=== PATIENT | male | born 1980 | race Caucasian/White ===

== ENCOUNTER 2022-05-03 10:32 | Outpatient (REF) | payer OTHER, SELFPAY ==
[2022-05-03 10:56] LABS: Baso%MD 0.5 %; Eos%MD 2.8 %; Hematocrit 41.2 % (42.0-52.0); Hemoglobin 14.1 g/dl (14.0-18.0); IG%MD 0.5 %; Lymph%MD 25.5 %; Mean Corpuscular HGB Conc 34.2 g/dl (31.0-36.0); Mean Corpuscular Volume 87.7 fL (80.0-98.0); Mean Platelet Volume 9.2 fL (9.4-12.4); Mono%MD 6.1 %; Neut%MD 64.6 %; Platelet Count 242 X10*3/uL (160-400); Red Cell Distribution Width 12.1 % (11.0-16.0); White Blood Count 7.8 X10*3/uL (4.8-10.8)
[2022-05-03 11:57] LABS: Anion Gap 14 (12-20); Blood Urea Nitrogen 16 mg/dL (9-16); Calcium 9.4 mg/dL (8.4-10.2); Carbon Dioxide 21 mmol/L (22-29); Chloride 106 mmol/L (96-108); Cholesterol 159 mg/dL; Estimated Glomerular Filt Rate > 60; Glucose Random 298 mg/dL (60-115); HDL Cholesterol 35 mg/dL; LDL Cholesterol Calculated 63 mg/dl; Potassium 4.4 mmol/L (3.3-5.1); Sodium 137 mmol/L (135-145); Triglycerides 309 mg/dL
[2022-05-03 12:02] LABS: Atypical Lymph Absolute Manual 0.1 x10*3/uL; Atypical Lymphs Percent Manual 1 % (0-6); Band Neutrophils Percent 0 % (3-5); Eosinophils Absolute Manual 0.2 X10*3/uL (0.0-0.4); Eosinophils Percent Manual 3 % (0-4); Lymphocytes Absolute Manual 2.3 X10*3/uL (1.2-4.9); Lymphocytes Percent Manual 29 % (20-40); Monocytes Absolute Manual 0.8 X10*3/uL (0.1-1.2); Monocytes Percent Manual 10 % (2-11); Neutrophils Absolute Manual 4.4 X10*3/uL (2.0-8.3); Neutrophils Percent Manual 57 % (45-73)
[2022-05-03 12:03] LABS: Platelet Estimate NORMAL (NORMAL); Platelet Morphology Comment NORMAL; RBC Morphology NORMAL
[2022-05-03 12:11] LABS: Free T4 (Free Thyroxine) 0.83 ng/dL (0.71-1.85); Thyroid Stimulating Hormone 0.24 uIU/mL (0.32-4.0)
[2022-05-04 18:51] LABS: Prolactin 2.3 ng/mL (2.0-18.0)
== END 2022-05-03 10:33 | disposition home or self-care (01) ==
LOC: HO.LAB 10:32
PROVIDERS: PCP Internal Medicine; Visit Provider Clinical Nurse Specialist Psychiatric/Mental Health, Child & Adolescent
DX: F31.9 Bipolar disorder, unspecified (principal); Z79.899 Other long term (current) drug therapy
CPT/HCPCS: 36415; 80048; 80061; 84146; 84439; 84443; 85007; 85027

== ENCOUNTER 2022-11-21 10:21 | Inpatient (IN) | payer OTHER, SELFPAY ==
[2022-11-21] VITALS (13 sets, daily range): BP systolic 98–188; BP diastolic 54–94; PULSE 70–109; RESP 12–22; TEMP 36.7–36.8; O2SAT 97–100; BMI 31.3
--- NOTE | ~2022-11-21 | XR_ITS ---
EXAMINATION: XR CHEST CLINICAL INFORMATION: SOB. COMPARISON: None available. TECHNIQUE: 2 views of the chest were obtained. FINDINGS: No significant abnormality is noted involving the heart, lungs, mediastinum, bony thorax or soft tissues. XR/XR chest 1V IMPRESSION: Unremarkable chest examination.
--- NOTE | 2022-11-21 10:45 | ECG_ITS ---
Test Reason : DIZZY Blood Pressure : / mmHG Vent. Rate : 093 BPM Atrial Rate : 093 BPM P-R Int : 152 ms QRS Dur : 098 ms QT Int : 386 ms P-R-T Axes : 069 076 056 degrees QTc Int : 479 ms Normal sinus rhythm Normal ECG When compared with ECG of 11-MAR-2014 11:01, No significant change was found Referred By: Cristiana Amin Electronically Signed By:PITER SAVAGE
--- NOTE | 2022-11-21 10:47 | ED.GENADULT ---
HPI - General Adult General Chief complaint: Weakness Stated complaint: lethargic and dizzy per ems Time Seen by Provider: 11/21/22 10:40 Source: patient, EMS and old records reviewed Mode of arrival: EMS Limitations: no limitations History of Present Illness HPI narrative: 42-year-old male with history of obesity, depression, hyperlipidemia, anxiety who is presenting to the ER for evaluation of lethargy, generalized malaise, polyuria and polydipsia for the last couple of months. He states he saw his PCP for a physical about a month ago, who briefly touched upon his symptoms and is also get blood work done but has not had the time yet. He states he has had no medication changes recently. He has had intermittent dizziness and generalized weakness. He states his breathing has been ?heavy. ? he denies any chest pain. No fever or chills. He does endorse epigastric abdominal pain he associates with increased acid reflux. No nausea, vomiting, diarrhea. He has been suffering from constipation and having to use enemas at home, last BM was yesterday after enema use. POC 369 for EMS. MD complaint: Malaise, polyuria, polydipsia Onset (ago): month(s) Location: head and mouth Severity: moderate Relieving factors: none Exacerbating factors: none Associated symptoms: loss of appetite, malaise, shortness of breath and weakness Treatments prior to arrival: none Related Data Home Medications Medication Instructions Recorded Confirmed albuterol sulfate 90 mcg/actuation 2 puff inhalation Q4H PRN 11/21/22 11/21/22 aerosol inhaler Shortness Of Breath quetiapine 300 mg tablet 600 mg PO BEDTIME 11/21/22 11/21/22 Previous Rx's Medication Instructions Recorded clonazepam 1 mg tablet 1 mg PO BID PRN depression #90 tabs 10/02/22 sertraline 100 mg tablet 150 mg PO DAILY #90 tabs 10/02/22 atorvastatin 40 mg tablet 40 mg PO BEDTIME #90 tabs 10/23/22 nicotine 14 mg/24 hr daily 1 patch transdermal Q24H #28 ea 10/23/22 transdermal patch Allergies Allergy/AdvReac Type Severity Reaction Status Date / Time No Known Allergies Allergy Verified 10/23/22 11:14 REPLACED BY [facility] Past Medical History Medical History Hyperlipidemia Surgical History History of tonsillectomy Family History Family History Father No problems noted. Mother No problems noted. Social History Social History (Updated 10/23/22 @ 11:22 by CALOS Crowder) Housing: Condominium Alcohol intake: current Alcohol intake frequency: holidays/special occasions only Patient Tobacco Use Status: Current everyday Tobacco user Tobacco use type: Cigarette Cigarettes Per Day: 10 e-Cigarette/Vaping Use: Never Used Second Hand Smoke Exposure: No Advance Directives: No service: No Current occupational status: disabled Current occupational exposures/hazards: No Cognitive needs: No Hearing needs: No Vision needs: No Physical Exam ED Vital Signs: Vital Signs - 24 hr 11/21/22 10:51 11/21/22 11:40 11/21/22 11:40 Temperature 98.1 F Pulse Rate 103 H 95 107 H Respiratory Rate 16 Blood Pressure 164/92 H 147/82 H 167/82 H Pulse Oximetry 100 Oxygen Delivery Method Room Air 11/21/22 11:41 11/21/22 12:09 Temperature Pulse Rate 109 H 97 Respiratory Rate 20 Blood Pressure 137/80 135/86 Pulse Oximetry 100 Oxygen Delivery Method Room Air BMI result Body Mass Index 31.3 Course Reevaluation(s) Reevaluation #1: Patient found to have metabolic acidosis with hemoglobin A1c greater than 14%. He is in DKA with new onset of diabetes. Insulin IV push as well as IV infusion have been ordered. He will acquire ICU level of care. Patient updated on diagnosis and management. Time: 12:11 Reevaluation #2: Anion gap 29 with a bicarb of 8. Glucose in the 500s. Patient started on insulin infusion. Second IV cannot be established due to dehydration, 2 L of normal saline has been ordered as LR and insulin cannot infused together. There is ICU bed available, bed request put in, Dr. Madrigal Time: 12:42 Medications Administered Generic Name Dose Route Start Last Admin Trade Name Freq PRN Reason Stop Dose Admin Insulin Human Regular 100 unit in 100 mls @ 9 mls/hr 11/21/22 12:00 11/21/22 12:19 Myxredlin IVCONT 9 unit/hr .Q11H7M HOMAR 9 mls/hr Administration Protocol 9 UNIT/HR Discontinued Medications Generic Name Dose Route Start Last Admin Trade Name Kartik PRN Reason Stop Dose Admin Al Hydroxide/Mg Hydroxide 30 ml 11/21/22 10:46 11/21/22 11:32 Magnesium Hydrox/Alum Hydrox 30 Ml Oral.Susp PO 11/21/22 10:47 30 ml ONCE ONE Administration Belladonna Alkaloids/Phenobarbital 10 ml 11/21/22 10:46 11/21/22 11:31 Phenobarb/Hyoscy/Atropine/Scop 10 Ml Elixir PO 11/21/22 10:47 10 ml ONCE ONE Administration Sodium Chloride 1,000 mls @ 999 mls/hr 11/21/22 11:00 11/21/22 12:37 Ns IVCONT 11/21/22 12:00 Infused .Q1H1M HOMAR Infusion Sodium Chloride 1,000 mls @ 999 mls/hr 11/21/22 12:30 11/21/22 12:30 Ns IVCONT 11/21/22 13:30 999 mls/hr .Q1H1M HOMAR Administration Insulin Human Regular 5 unit 11/21/22 11:46 11/21/22 12:12 Insulin Regular, Human 100 Unit/Ml 3 Ml Vial IVPUSH 11/21/22 11:47 5 unit ONCE ONE Administration Lidocaine HCl 15 ml 11/21/22 10:46 11/21/22 11:32 Lidocaine Hcl Viscous 2 % 15 Ml Solution MUCOUS MEM 11/21/22 10:47 15 ml ONCE ONE Administration Ondansetron HCl 4 mg 11/21/22 11:04 11/21/22 11:08 Ondansetron Hcl 4 Mg/2 Ml Vial IVPUSH 11/21/22 11:05 4 mg ONCE ONE Administration Medical Decision Making Medical Decision Making MDM Narrative: 42-year-old male with history of depression, anxiety, hyperlipidemia, obesity who presents to the ER today for evaluation of polydipsia, polyuria, weakness, lethargy, dry mouth for the last couple of months. He is tachypneic on arrival, concern for DKA. EMS POC 369. Lab work showing acute metabolic acidosis with pH 7.14. His anion gap of 29 with bicarb of 8. His glucose is the 500s with moderate acetone. Labs consistent with DKA and new onset diabetes. His A1c is greater than 14%. He was given 2 L of normal saline, 5 units of IV insulin and insulin infusion was started and 9 units an hour, DKA protocol ordered. Patient to be admitted to the ICU for further management. He was counseled on his new diagnosis, management and need for intensive care unit. All questions were answered. Differential Diagnosis Differential Diagnoses: The differential diagnosis associated with the presentation includes DKA, HHS, newly diagnosed diabetes, dehydration, metabolic derangement, acute infection, ACS Admission/Observation Consideration of admission/observation: Escalation of care including admission/observation considered Consult Healthcare Provider Management of the patient was discussed with: [facility] Consultant Dr. Madrigal Lab Data MDM Lab Attestation statement: I reviewed the patient's lab results. 11/21/22 11:22 11/21/22 11:22 Labs: Lab Results 11/21/22 11/21/22 11/21/22 Range/Units 11:22 11:22 11:22 WBC 8.9 (4.8-10.8) X10*3/uL RBC 5.36 (4.60-5.80) X10*6/uL Hgb 16.1 (14.0-18.0) g/dl Hct 46.1 (42.0-52.0) % MCV 86.0 (80.0-98.0) fL MCH 30.0 (27.0-33.0) pg MCHC 34.9 (31.0-36.0) g/dl RDW 12.7 (11.0-16.0) % Plt Count 253 (160-400) X10*3/uL MPV 10.3 (9.4-12.4) fL Immature Gran % (Auto) 0.5 H (0.0-0.4) % Neut % (Auto) 80.1 H (45-73) % Lymph % (Auto) 13.9 L (20-40) % Piatt % (Auto) 4.9 (2-11) % Eos % (Auto) 0.1 (0-4) % Baso % (Auto) 0.5 (0-2) % Lymph # (Auto) 1.2 (1.2-4.9) X10*3/uL Piatt # (Auto) 0.4 (0.1-1.2) X10*3/uL Eos # (Auto) 0.0 (0.0-0.4) X10*3/uL Baso # (Auto) 0.0 (0.0-0.2) X10*3/uL Abs Immat Gran (auto) 0.04 H (0.00-0.03) X10*3/uL Absolute Neuts (auto) 7.1 (2.0-8.3) x10*3/uL Absolute Nucleated RBC 0.000 (0.0-0.012) X10*3/uL Nucleated RBC % (auto) 0.0 (0.0-0.2) /100WBC VBG pH (7.32-7.43) VBG pCO2 mmHg VBG pO2 mmHg VBG HCO3 (22-26) mmol/L VBG O2 Saturation % VBG Base Excess mmol/L Sodium 135 (135-145) mmol/L Potassium 4.0 (3.3-5.1) mmol/L Chloride 102 (96-108) mmol/L Carbon Dioxide 8 L* D (22-29) mmol/L Anion Gap 29 H (12-20) BUN 11 (9-16) mg/dL Creatinine 1.83 H (0.5-1.4) mg/dL Estim Creat Clear Calc 60.7 Estimated GFR 40 POC Glucose (60-115) mg/dL Random Glucose 522 H* (60-115) mg/dL Estimat Average Glucose TNP Hemoglobin A1c % > 14.0 % Calcium 9.0 (8.4-10.2) mg/dL Magnesium 2.4 (1.6-2.6) mg/dL Total Bilirubin 0.7 (0.0-1.0) mg/dL Direct Bilirubin 0.2 (0.0-0.5) mg/dL AST 33 (5-37) U/L ALT 79 H (0-40) U/L Alkaline Phosphatase 109 (39-117) U/L Troponin I High Sens (<3.5-35.0) ng/L B-Natriuretic Peptide (<100) pg/mL Total Protein 7.8 (6.5-8.0) g/dL Albumin 4.8 (3.5-5.0) g/dL TSH 0.71 (0.32-4.0) uIU/mL Urine Color Urine Appearance Urine pH (5.0-9.0) Ur Specific Nucla (1.005-1.025) Urine Protein (Neg-Trace) mg/dL Urine Glucose (UA) (Negative) mg/dL Urine Ketones (Negative) mg/dL Urine Blood (Negative) Urine Nitrite (Negative) Ur Leukocyte Esterase (Negative) Urine RBC (0-2) /HPF Urine WBC (0-5) /HPF Ur Squamous Epith Cells (0-2) /HPF Urine Bacteria (None Seen) Hyaline Casts (0-2) /LPF Urine Opiates Screen (Not Detect) Urine Fentanyl Screen (Not Detect) Ur Barbiturates Screen (Not Detect) Ur Phencyclidine Scrn (Not Detect) Ur Amphetamines Screen (Not Detect) U Benzodiazepines Scrn (Not Detect) Urine Cocaine Screen (Not Detect) U Marijuana (THC) Screen (Not Detect) Ethyl Alcohol < 10 mg/dL Acetone, Qual (Negative) 11/21/22 11/21/22 11/21/22 Range/Units 11:22 11:22 11:22 WBC (4.8-10.8) X10*3/uL RBC (4.60-5.80) X10*6/uL Hgb (14.0-18.0) g/dl Hct (42.0-52.0) % MCV (80.0-98.0) fL MCH (27.0-33.0) pg MCHC (31.0-36.0) g/dl RDW (11.0-16.0) % Plt Count (160-400) X10*3/uL MPV (9.4-12.4) fL Immature Gran % (Auto) (0.0-0.4) % Neut % (Auto) (45-73) % Lymph % (Auto) (20-40) % Piatt % (Auto) (2-11) % Eos % (Auto) (0-4) % Baso % (Auto) (0-2) % Lymph # (Auto) (1.2-4.9) X10*3/uL Piatt # (Auto) (0.1-1.2) X10*3/uL Eos # (Auto) (0.0-0.4) X10*3/uL Baso # (Auto) (0.0-0.2) X10*3/uL Abs Immat Gran (auto) (0.00-0.03) X10*3/uL Absolute Neuts (auto) (2.0-8.3) x10*3/uL Absolute Nucleated RBC (0.0-0.012) X10*3/uL Nucleated RBC % (auto) (0.0-0.2) /100WBC VBG pH (7.32-7.43) VBG pCO2 mmHg VBG pO2 mmHg VBG HCO3 (22-26) mmol/L VBG O2 Saturation % VBG Base Excess mmol/L Sodium (135-145) mmol/L Potassium (3.3-5.1) mmol/L Chloride (96-108) mmol/L Carbon Dioxide (22-29) mmol/L Anion Gap (12-20) BUN (9-16) mg/dL Creatinine (0.5-1.4) mg/dL Estim Creat Clear Calc Estimated GFR POC Glucose (60-115) mg/dL Random Glucose (60-115) mg/dL Estimat Average Glucose Hemoglobin A1c % % Calcium (8.4-10.2) mg/dL Magnesium (1.6-2.6) mg/dL Total Bilirubin (0.0-1.0) mg/dL Direct Bilirubin (0.0-0.5) mg/dL AST (5-37) U/L ALT (0-40) U/L Alkaline Phosphatase (39-117) U/L Troponin I High Sens 3.8 (<3.5-35.0) ng/L B-Natriuretic Peptide < 10 (<100) pg/mL Total Protein (6.5-8.0) g/dL Albumin (3.5-5.0) g/dL TSH (0.32-4.0) uIU/mL Urine Color Urine Appearance Urine pH (5.0-9.0) Ur Specific Nucla (1.005-1.025) Urine Protein (Neg-Trace) mg/dL Urine Glucose (UA) (Negative) mg/dL Urine Ketones (Negative) mg/dL Urine Blood (Negative) Urine Nitrite (Negative) Ur Leukocyte Esterase (Negative) Urine RBC (0-2) /HPF Urine WBC (0-5) /HPF Ur Squamous Epith Cells (0-2) /HPF Urine Bacteria (None Seen) Hyaline Casts (0-2) /LPF Urine Opiates Screen (Not Detect) Urine Fentanyl Screen (Not Detect) Ur Barbiturates Screen (Not Detect) Ur Phencyclidine Scrn (Not Detect) Ur Amphetamines Screen (Not Detect) U Benzodiazepines Scrn (Not Detect) Urine Cocaine Screen (Not Detect) U Marijuana (THC) Screen (Not Detect) Ethyl Alcohol mg/dL Acetone, Qual Moderate H (Negative) 11/21/22 11/21/22 11/21/22 Range/Units 11:22 11:22 11:30 WBC (4.8-10.8) X10*3/uL RBC (4.60-5.80) X10*6/uL Hgb (14.0-18.0) g/dl Hct (42.0-52.0) % MCV (80.0-98.0) fL MCH (27.0-33.0) pg MCHC (31.0-36.0) g/dl RDW (11.0-16.0) % Plt Count (160-400) X10*3/uL MPV (9.4-12.4) fL Immature Gran % (Auto) (0.0-0.4) % Neut % (Auto) (45-73) % Lymph % (Auto) (20-40) % Piatt % (Auto) (2-11) % Eos % (Auto) (0-4) % Baso % (Auto) (0-2) % Lymph # (Auto) (1.2-4.9) X10*3/uL Piatt # (Auto) (0.1-1.2) X10*3/uL Eos # (Auto) (0.0-0.4) X10*3/uL Baso # (Auto) (0.0-0.2) X10*3/uL Abs Immat Gran (auto) (0.00-0.03) X10*3/uL Absolute Neuts (auto) (2.0-8.3) x10*3/uL Absolute Nucleated RBC (0.0-0.012) X10*3/uL Nucleated RBC % (auto) (0.0-0.2) /100WBC VBG pH 7.14 L* (7.32-7.43) VBG pCO2 28 mmHg VBG pO2 28 mmHg VBG HCO3 10 L (22-26) mmol/L VBG O2 Saturation 48.0 % VBG Base Excess -17.3 mmol/L Sodium (135-145) mmol/L Potassium (3.3-5.1) mmol/L Chloride (96-108) mmol/L Carbon Dioxide (22-29) mmol/L Anion Gap (12-20) BUN (9-16) mg/dL Creatinine (0.5-1.4) mg/dL Estim Creat Clear Calc Estimated GFR POC Glucose (60-115) mg/dL Random Glucose (60-115) mg/dL Estimat Average Glucose Hemoglobin A1c % % Calcium (8.4-10.2) mg/dL Magnesium (1.6-2.6) mg/dL Total Bilirubin (0.0-1.0) mg/dL Direct Bilirubin (0.0-0.5) mg/dL AST (5-37) U/L ALT (0-40) U/L Alkaline Phosphatase (39-117) U/L Troponin I High Sens (<3.5-35.0) ng/L B-Natriuretic Peptide (<100) pg/mL Total Protein (6.5-8.0) g/dL Albumin (3.5-5.0) g/dL TSH (0.32-4.0) uIU/mL Urine Color Yellow Urine Appearance Clear Urine pH 5.0 (5.0-9.0) Ur Specific Nucla >= 1.030 H (1.005-1.025) Urine Protein 30 (1+) H (Neg-Trace) mg/dL Urine Glucose (UA) >=1000 H (Negative) mg/dL Urine Ketones >=160 (Negative) mg/dL Urine Blood Trace H (Negative) Urine Nitrite Negative (Negative) Ur Leukocyte Esterase Negative (Negative) Urine RBC 0-2 (0-2) /HPF Urine WBC 0-5 (0-5) /HPF Ur Squamous Epith Cells 0-2 (0-2) /HPF Urine Bacteria None Seen (None Seen) Hyaline Casts 6-10 (0-2) /LPF Urine Opiates Screen Not Detected (Not Detect) Urine Fentanyl Screen Not Detected (Not Detect) Ur Barbiturates Screen Not Detected (Not Detect) Ur Phencyclidine Scrn Not Detected (Not Detect) Ur Amphetamines Screen Not Detected (Not Detect) U Benzodiazepines Scrn Not Detected (Not Detect) Urine Cocaine Screen Not Detected (Not Detect) U Marijuana (THC) Screen POSITIVE H (Not Detect) Ethyl Alcohol mg/dL Acetone, Qual (Negative) 11/21/22 Range/Units 12:05 WBC (4.8-10.8) X10*3/uL RBC (4.60-5.80) X10*6/uL Hgb (14.0-18.0) g/dl Hct (42.0-52.0) % MCV (80.0-98.0) fL MCH (27.0-33.0) pg MCHC (31.0-36.0) g/dl RDW (11.0-16.0) % Plt Count (160-400) X10*3/uL MPV (9.4-12.4) fL Immature Gran % (Auto) (0.0-0.4) % Neut % (Auto) (45-73) % Lymph % (Auto) (20-40) % Piatt % (Auto) (2-11) % Eos % (Auto) (0-4) % Baso % (Auto) (0-2) % Lymph # (Auto) (1.2-4.9) X10*3/uL Piatt # (Auto) (0.1-1.2) X10*3/uL Eos # (Auto) (0.0-0.4) X10*3/uL Baso # (Auto) (0.0-0.2) X10*3/uL Abs Immat Gran (auto) (0.00-0.03) X10*3/uL Absolute Neuts (auto) (2.0-8.3) x10*3/uL Absolute Nucleated RBC (0.0-0.012) X10*3/uL Nucleated RBC % (auto) (0.0-0.2) /100WBC VBG pH (7.32-7.43) VBG pCO2 mmHg VBG pO2 mmHg VBG HCO3 (22-26) mmol/L VBG O2 Saturation % VBG Base Excess mmol/L Sodium (135-145) mmol/L Potassium (3.3-5.1) mmol/L Chloride (96-108) mmol/L Carbon Dioxide (22-29) mmol/L Anion Gap (12-20) BUN (9-16) mg/dL Creatinine (0.5-1.4) mg/dL Estim Creat Clear Calc Estimated GFR POC Glucose 432 H* (60-115) mg/dL Random Glucose (60-115) mg/dL Estimat Average Glucose Hemoglobin A1c % % Calcium (8.4-10.2) mg/dL Magnesium (1.6-2.6) mg/dL Total Bilirubin (0.0-1.0) mg/dL Direct Bilirubin (0.0-0.5) mg/dL AST (5-37) U/L ALT (0-40) U/L Alkaline Phosphatase (39-117) U/L Troponin I High Sens (<3.5-35.0) ng/L B-Natriuretic Peptide (<100) pg/mL Total Protein (6.5-8.0) g/dL Albumin (3.5-5.0) g/dL TSH (0.32-4.0) uIU/mL Urine Color Urine Appearance Urine pH (5.0-9.0) Ur Specific Nucla (1.005-1.025) Urine Protein (Neg-Trace) mg/dL Urine Glucose (UA) (Negative) mg/dL Urine Ketones (Negative) mg/dL Urine Blood (Negative) Urine Nitrite (Negative) Ur Leukocyte Esterase (Negative) Urine RBC (0-2) /HPF Urine WBC (0-5) /HPF Ur Squamous Epith Cells (0-2) /HPF Urine Bacteria (None Seen) Hyaline Casts (0-2) /LPF Urine Opiates Screen (Not Detect) Urine Fentanyl Screen (Not Detect) Ur Barbiturates Screen (Not Detect) Ur Phencyclidine Scrn (Not Detect) Ur Amphetamines Screen (Not Detect) U Benzodiazepines Scrn (Not Detect) Urine Cocaine Screen (Not Detect) U Marijuana (THC) Screen (Not Detect) Ethyl Alcohol mg/dL Acetone, Qual (Negative) ABG Data ABG Results: (venous) Attestation ABG: I personally reviewed and interpreted this ABG as follows: Interpretation: Acute metabolic acidosis Independent Interpretation I performed an independent interpretation of an: EKG and Plain X-Ray Interpretation: EKG with normal sinus rhythm, ventricular rate 93 beats per minute, normal HI interval, normal QTC, no significant change from 2014. Chest x-ray clear Radiology Impression Discussion of test interpretation with radiology: I have reviewed the radiologist's reading. Radiologist Impression: EXAMINATION: XR CHEST CLINICAL INFORMATION: SOB. COMPARISON: None available. TECHNIQUE: 2 views of the chest were obtained. FINDINGS: No significant abnormality is noted involving the heart, lungs, mediastinum, bony thorax or soft tissues. XR/XR chest 2V IMPRESSION: Unremarkable chest examination. Independent Historian Clinical information obtained from an independent historian. History obtained from or confirmed by: EMS External Record Review External record reviewed: Office record, Outpatient record, Prior outpatient labs and Prior outpatient radiology Prescription Management I considered prescription management with: Other (insulin) Chronic Conditions Patient?s care impacted by: Hypertension and Other (depression, anxiety) Critical Care Time Critical Care Time Critical Care Time: Yes Total Critical Care Time: 44 Attestation: I have personally provided critical care time exclusive of time spent on separately billable procedures. Time includes review of lab data, radiology results, discussion with consultants, and monitoring for potential decompensation. Intervention performed as documented. Discharge Plan Discharge Clinical Impression: DKA (diabetic ketoacidosis), Newly diagnosed diabetes, TYESHA (acute kidney injury) Patient Disposition: Admitted As Inpatient
[2022-11-21] MEDS: 0.9 % Sodium Chloride 1,000 ML 999 ML IVCONT ×2 (11:02→12:30)
[2022-11-21] MEDS: ondansetron HCL 4 MG/2 ML VIAL IVPUSH (11:08)
[2022-11-21] MEDS: PHENobarb/Hyoscy/Atropine/Scop 10 ML ELIXIR PO (11:31)
[2022-11-21] MEDS: Magnesium Hydrox/Alum Hydrox 30 ML ORAL.SUSP PO (11:32)
[2022-11-21] MEDS: Lidocaine HCl Viscous 2 % 15 ML SOLUTION MUCOUS MEM (11:32)
[2022-11-21 11:34] LABS: MANUAL DIFF FLAG NO
[2022-11-21 11:38] LABS: Basophils Percent Auto 0.5 % (0-2); Eosinophils Percent Auto 0.1 % (0-4); Hematocrit 46.1 % (42.0-52.0); Hemoglobin 16.1 g/dl (14.0-18.0); Imm Gran Abs Auto 0.04 X10*3/uL (0.00-0.03); Imm Gran Pct Auto 0.5 % (0.0-0.4); Lymphocytes Absolute Auto 1.2 X10*3/uL (1.2-4.9); Lymphocytes Percent Auto 13.9 % (20-40); Mean Corpuscular HGB Conc 34.9 g/dl (31.0-36.0); Mean Platelet Volume 10.3 fL (9.4-12.4); Monocytes Absolute Auto 0.4 X10*3/uL (0.1-1.2); Monocytes Percent Auto 4.9 % (2-11); Neutrophils Absolute Auto 7.1 x10*3/uL (2.0-8.3); Neutrophils Percent Auto 80.1 % (45-73); Platelet Count 253 X10*3/uL (160-400); Red Blood Count 5.36 X10*6/uL (4.60-5.80); Red Cell Distribution Width 12.7 % (11.0-16.0); White Blood Count 8.9 X10*3/uL (4.8-10.8)
[2022-11-21 11:41] LABS: VBG Base Excess -17.3 mmol/L; VBG HCO3 10 mmol/L (22-26); VBG pCO2 28 mmHg; VBG pH 7.14 (7.32-7.43); VBG pO2 28 mmHg
[2022-11-21 11:43] LABS: Appearance Urine Clear; Color Urine Yellow; Glucose Urine UA >=1000 mg/dL (Negative); Leukocyte Esterase Urine Negative (Negative); Nitrite Urine Negative (Negative); Specific Gravity - Urine >= 1.030 (1.005-1.025); UMIC TRIGGER UACC YES; Urine Blood Trace (Negative); Urine Ketones >=160 mg/dL (Negative); Urine Protein 30 (1+) mg/dL (Neg-Trace)
[2022-11-21 11:49] LABS: Acetone, serum QL Moderate (Negative)
[2022-11-21 11:51] LABS: Bacteria Urine None Seen (None Seen); RBC Urine 0-2 /HPF (0-2); Squamous Epithelial Cell Urine 0-2 /HPF (0-2); WBC Urine 0-5 /HPF (0-5)
[2022-11-21 11:53] LABS: Amphetamine Screen Urine Not Detected (Not Detect); Barbiturates, Urine Not Detected (Not Detect); Benzodiazepines Screen Urine Not Detected (Not Detect); Cannabinoid Screen Urine POSITIVE (Not Detect); Cocaine Screen Urine Not Detected (Not Detect); Fentanyl, urine Not Detected (Not Detect); Opiate Screen Urine Not Detected (Not Detect); Phencyclidine Screen Urine Not Detected (Not Detect)
[2022-11-21 11:55] LABS: Hemoglobin A1c % > 14.0 %
[2022-11-21 11:56] LABS: B Type Natriuretic Peptide < 10 pg/mL (<100)
[2022-11-21 11:57] LABS: Venous Blood Gas Refer to POC result
[2022-11-21 11:59] LABS: Troponin-I High Sensitivity 3.8 ng/L (<3.5-35.0)
[2022-11-21 12:10] LABS: Glucose, Whole Blood 432 mg/dL (60-115)
[2022-11-21 12:12] LABS: Alanine Aminotransferase 79 U/L (0-40); Albumin Level 4.8 g/dL (3.5-5.0); Alkaline Phosphatase 109 U/L (39-117); Aspartate Amino Transferase 33 U/L (5-37); Bilirubin Direct 0.2 mg/dL (0.0-0.5); Bilirubin Total 0.7 mg/dL (0.0-1.0); Blood Urea Nitrogen 11 mg/dL (9-16); Creatinine Clr Calc Pharmacy 60.7; Estimated Glomerular Filt Rate 40; Ethanol < 10 mg/dL; Magnesium 2.4 mg/dL (1.6-2.6); Total Protein 7.8 g/dL (6.5-8.0)
[2022-11-21] MEDS: Insulin Regular, Human 100 UNIT/ML 3 ML VIAL IVPUSH (12:12)
[2022-11-21 12:13] LABS: TSH reflex Free T4 0.71 uIU/mL (0.32-4.0)
[2022-11-21] MEDS: Insulin Regular/NS 100 UNIT/100 ML PLAST..BAG 9 UNIT IVCONT (12:19)
--- NOTE | 2022-11-21 12:20 | PHA.MEDREC ---
Pharmacy Consult ? Medication Reconciliation Pharmacy has completed the medication reconciliation. Pt able to name medications
[2022-11-21 12:22] LABS: Glucose Random 522 mg/dL (60-115)
[2022-11-21 12:30] LABS: Sodium 135 mmol/L (135-145)
[2022-11-21 12:31] LABS: Chloride 102 mmol/L (96-108)
[2022-11-21 12:32] LABS: Anion Gap 29 (12-20); Carbon Dioxide 8 mmol/L (22-29)
[2022-11-21 13:35] LABS: Glucose, Whole Blood 311 mg/dL (60-115)
[2022-11-21] MEDS: Lactated Ringers 1,000 ML 999 ML IV (14:07)
[2022-11-21] MEDS: Heparin Sodium,Porcine 5,000 UNIT/ML VIAL 5000 UNIT SUBCUT ×2 (14:09→21:38)
[2022-11-21 14:10] LABS: Anion Gap 21 (12-20); Blood Urea Nitrogen 11 mg/dL (9-16); Calcium 7.9 mg/dL (8.4-10.2); Carbon Dioxide 11 mmol/L (22-29); Chloride 110 mmol/L (96-108); Creatinine Clr Calc Pharmacy 72.1; Estimated Glomerular Filt Rate 49; Glucose Random 329 mg/dL (60-115); Potassium 3.9 mmol/L (3.3-5.1); Sodium 138 mmol/L (135-145)
[2022-11-21 14:28] LABS: Glucose, Whole Blood 302 mg/dL (60-115)
[2022-11-21] MEDS: Lactated Ringers 1,000 ML 200 ML IVCONT (14:49)
--- NOTE | 2022-11-21 15:27 | P.HPCC_ITS ---
History of Present Illness Date of Service: 11/21/22 Chief Complaint: Diabetic ketoacidosis 42-year-old gentleman with underlying history of obesity, hyperlipidemia, and anxiety admitted on 11/21/2022 with slowly worsening lethargy, malaise, polyuria/polydipsia. On ER evaluation patient with laboratory findings of diabetic ketoacidosis started on insulin drip and IV fluids and admitted to intensive care unit. Review of Systems Constitutional: Constitutional: Denies daytime sleepiness, Denies excessive s weating, Reports fatigue, Denies fever(s), Denies lethargy, Reports malaise, Denies night sweats, Denies snoring and Denies weight loss Eyes: Eyes: Denies blurry vision and Denies itchy eyes ENT: Denies nasal congestion, Denies post nasal drip, Denies sinus pain, Denies sinus pressure and Denies other ( Thrush) Cardiovascular: Cardiovascular: Denies chest pain, Denies pedal edema, Denies dyspnea, Denies orthopnea and Denies paroxysmal nocturnal dyspnea Respiratory: Respiratory: Denies cough, Denies hemoptysis, Denies excessive phlegm production, Denies dyspnea, Denies snoring and Denies wheezing Gastrointestinal: Gastrointestinal: Denies abdominal pain and Denies heartburn Musculoskeletal: Musculoskeletal: Denies myalgias, Denies arthralgias and Denies joint swelling Integumentary/Breasts: Skin/Breast: Denies rash Neurologic: Denies memory loss and Denies seizure-like activity Psychiatric: Psychiatric: Denies abnormal sleep pattern, Denies anxiety and Denies memory loss Endocrine: Endocrine: Denies excessive sweating, Reports fatigue, Denies heat intolerance and Reports other ( Polydipsia/polyuria) Hematologic/Lymphatic: Hematologic/Lymphatic: Denies easy bruising Allergic/Immunologic: Allergic/Immunologic: Denies itchy eyes, Denies seasonal rhinorrhea and Denies wheezing PMFSH Past Medical History Medical History Hyperlipidemia Family History Family History Father No problems noted. Mother No problems noted. Surgical History Surgical History History of tonsillectomy Social History Social History (Updated 10/23/22 @ 11:22 by CALOS Crowder) Housing: Condominium Alcohol intake: current Alcohol intake frequency: does not drink Patient Tobacco Use Status: Current everyday Tobacco user Tobacco use type: Cigarette Cigarettes Per Day: 10 Smoked in Last 30 Days: Yes e-Cigarette/Vaping Use: Never Used Second Hand Smoke Exposure: No Use of substances other than those prescribed or required for medical reasons: Yes Substance Use Type: Marijuana Substance Use Frequency: Weekly Last Used Substance: Weeks (ago) Advance Directives: No Nutrition Risks: Diabetes new onset/Uncontrolled service: No Current occupational status: disabled Current occupational exposures/hazards: No Cognitive needs: No Hearing needs: No Vision needs: No Meds Allergies Allergy/AdvReac Type Severity Reaction Status Date / Time No Known Allergies Allergy Verified 10/23/22 11:14 Active Medications: Current Medications Heparin Sodium (Porcine) (Heparin Sodium,Porcine 5,000 Unit/Ml Vial) 5,000 unit SUBCUT Q8H HOMAR Last Admin: 11/21/22 14:09 Dose: 5,000 unit Insulin Human Regular (Myxredlin) 100 unit in 100 mls @ 9 mls/hr IVCONT .Q11H7M HOMAR; Protocol Last Admin: 11/21/22 12:19 Dose: 9 unit/hr, 9 mls/hr Dextrose (D10) 250 mls @ 750 mls/hr IV Q30M PRN PRN Reason: BG < 70 Lactated Ringer's (Lr) 1,000 mls @ 200 mls/hr IVCONT .Q5H HOMAR Last Admin: 11/21/22 14:49 Dose: 200 mls/hr Pharmacy Consult (Consult Rx Perform Med Rec) 1 each MISCELLANE ONCE PRN PRN Reason: Consult order Home Medications Medication Instructions Recorded Confirmed Last Taken Type albuterol sulfate 90 mcg/actuation 2 puff inhalation Q4H PRN 11/21/22 11/21/22 Unknown History aerosol inhaler Shortness Of Breath quetiapine 300 mg tablet 600 mg PO BEDTIME 11/21/22 11/21/22 11/20/22 History Physical Exam Vital Signs: Vital Signs: Last Vital Signs Temp 98.1 F 11/21/22 10:51 Pulse 97 11/21/22 12:09 Resp 20 11/21/22 12:09 BP 135/86 11/21/22 12:09 Pulse Ox 100 11/21/22 12:09 O2 Del Method Room Air 11/21/22 12:09 BMI result Body Mass Index 31.3 Const: General: no acute distress and alert Nutritional Appearance: not obese Orientation/consciousness: Other orientation findings ( oriented) HEENT: Head: Yes atraumatic Mouth: no other ( thrush) Throat: No postnasal drainage Eyes: General: appearance normal, both eyes and all related structures Sclerae: sclerae normal EOM: EOMs intact bilaterally Neck: Neck: Yes supple Lymphatic: no lymphadenopathy noted Resp: Effort & Inspection: normal respiratory effort and no use of accessory muscles Auscultation: clear to auscultation bilaterally Cardio: Rate: regular rate Rhythm: regular rhythm Heart sounds: no gallops, no murmurs and no rubs GI: Palpation (GI): Soft to palpation and Other GI palpation findings present ( nontender) Skin: General skin exam: other ( warm) Rashes: no rashes Extrem: General: No clubbing, No cyanosis and No edema Results Labs 11/21/22 11:22 11/21/22 13:29 Labs: Laboratory Results - last 24 hr 11/21/22 11/21/22 11/21/22 11:22 11:22 11:22 MCV 86.0 MCH 30.0 MCHC 34.9 RDW 12.7 Plt Count 253 MPV 10.3 Immature Gran % (Auto) 0.5 H Neut % (Auto) 80.1 H Lymph % (Auto) 13.9 L Marion % (Auto) 4.9 Eos % (Auto) 0.1 Baso % (Auto) 0.5 Lymph # (Auto) 1.2 Marion # (Auto) 0.4 Eos # (Auto) 0.0 Baso # (Auto) 0.0 Abs Immat Gran (auto) 0.04 H Absolute Neuts (auto) 7.1 Absolute Nucleated RBC 0.000 Nucleated RBC % (auto) 0.0 VBG pH VBG pCO2 VBG pO2 VBG HCO3 VBG O2 Saturation VBG Base Excess Anion Gap 29 H Estim Creat Clear Calc 60.7 Estimated GFR 40 POC Glucose Random Glucose 522 H* Estimat Average Glucose TNP Hemoglobin A1c % > 14.0 Calcium 9.0 Magnesium 2.4 Total Bilirubin 0.7 Direct Bilirubin 0.2 AST 33 ALT 79 H Alkaline Phosphatase 109 Troponin I High Sens B-Natriuretic Peptide Total Protein 7.8 Albumin 4.8 TSH 0.71 Urine Color Urine Appearance Urine pH Ur Specific Malone Urine Protein Urine Glucose (UA) Urine Ketones Urine Blood Urine Nitrite Ur Leukocyte Esterase Urine RBC Urine WBC Ur Squamous Epith Cells Urine Bacteria Hyaline Casts Urine Opiates Screen Urine Fentanyl Screen Ur Barbiturates Screen Ur Phencyclidine Scrn Ur Amphetamines Screen U Benzodiazepines Scrn Urine Cocaine Screen U Marijuana (THC) Screen Ethyl Alcohol < 10 Acetone, Qual 11/21/22 11/21/22 11/21/22 11:22 11:22 11:22 MCV MCH MCHC RDW Plt Count MPV Immature Gran % (Auto) Neut % (Auto) Lymph % (Auto) Marion % (Auto) Eos % (Auto) Baso % (Auto) Lymph # (Auto) Marion # (Auto) Eos # (Auto) Baso # (Auto) Abs Immat Gran (auto) Absolute Neuts (auto) Absolute Nucleated RBC Nucleated RBC % (auto) VBG pH VBG pCO2 VBG pO2 VBG HCO3 VBG O2 Saturation VBG Base Excess Anion Gap Estim Creat Clear Calc Estimated GFR POC Glucose Random Glucose Estimat Average Glucose Hemoglobin A1c % Calcium Magnesium Total Bilirubin Direct Bilirubin AST ALT Alkaline Phosphatase Troponin I High Sens 3.8 B-Natriuretic Peptide < 10 Total Protein Albumin TSH Urine Color Urine Appearance Urine pH Ur Specific Malone Urine Protein Urine Glucose (UA) Urine Ketones Urine Blood Urine Nitrite Ur Leukocyte Esterase Urine RBC Urine WBC Ur Squamous Epith Cells Urine Bacteria Hyaline Casts Urine Opiates Screen Urine Fentanyl Screen Ur Barbiturates Screen Ur Phencyclidine Scrn Ur Amphetamines Screen U Benzodiazepines Scrn Urine Cocaine Screen U Marijuana (THC) Screen Ethyl Alcohol Acetone, Qual Moderate H 11/21/22 11/21/22 11/21/22 11:22 11:22 11:30 MCV MCH MCHC RDW Plt Count MPV Immature Gran % (Auto) Neut % (Auto) Lymph % (Auto) Marion % (Auto) Eos % (Auto) Baso % (Auto) Lymph # (Auto) Marion # (Auto) Eos # (Auto) Baso # (Auto) Abs Immat Gran (auto) Absolute Neuts (auto) Absolute Nucleated RBC Nucleated RBC % (auto) VBG pH 7.14 L* VBG pCO2 28 VBG pO2 28 VBG HCO3 10 L VBG O2 Saturation 48.0 VBG Base Excess -17.3 Anion Gap Estim Creat Clear Calc Estimated GFR POC Glucose Random Glucose Estimat Average Glucose Hemoglobin A1c % Calcium Magnesium Total Bilirubin Direct Bilirubin AST ALT Alkaline Phosphatase Troponin I High Sens B-Natriuretic Peptide Total Protein Albumin TSH Urine Color Yellow Urine Appearance Clear Urine pH 5.0 Ur Specific Malone >= 1.030 H Urine Protein 30 (1+) H Urine Glucose (UA) >=1000 H Urine Ketones >=160 Urine Blood Trace H Urine Nitrite Negative Ur Leukocyte Esterase Negative Urine RBC 0-2 Urine WBC 0-5 Ur Squamous Epith Cells 0-2 Urine Bacteria None Seen Hyaline Casts 6-10 Urine Opiates Screen Not Detected Urine Fentanyl Screen Not Detected Ur Barbiturates Screen Not Detected Ur Phencyclidine Scrn Not Detected Ur Amphetamines Screen Not Detected U Benzodiazepines Scrn Not Detected Urine Cocaine Screen Not Detected U Marijuana (THC) Screen POSITIVE H Ethyl Alcohol Acetone, Qual 11/21/22 11/21/22 11/21/22 12:05 13:29 13:29 MCV MCH MCHC RDW Plt Count MPV Immature Gran % (Auto) Neut % (Auto) Lymph % (Auto) Marion % (Auto) Eos % (Auto) Baso % (Auto) Lymph # (Auto) Marion # (Auto) Eos # (Auto) Baso # (Auto) Abs Immat Gran (auto) Absolute Neuts (auto) Absolute Nucleated RBC Nucleated RBC % (auto) VBG pH VBG pCO2 VBG pO2 VBG HCO3 VBG O2 Saturation VBG Base Excess Anion Gap 21 H Estim Creat Clear Calc 72.1 Estimated GFR 49 POC Glucose 432 H* 311 H Random Glucose 329 H Estimat Average Glucose Hemoglobin A1c % Calcium 7.9 L D Magnesium Total Bilirubin Direct Bilirubin AST ALT Alkaline Phosphatase Troponin I High Sens B-Natriuretic Peptide Total Protein Albumin TSH Urine Color Urine Appearance Urine pH Ur Specific Malone Urine Protein Urine Glucose (UA) Urine Ketones Urine Blood Urine Nitrite Ur Leukocyte Esterase Urine RBC Urine WBC Ur Squamous Epith Cells Urine Bacteria Hyaline Casts Urine Opiates Screen Urine Fentanyl Screen Ur Barbiturates Screen Ur Phencyclidine Scrn Ur Amphetamines Screen U Benzodiazepines Scrn Urine Cocaine Screen U Marijuana (THC) Screen Ethyl Alcohol Acetone, Qual 11/21/22 14:23 MCV MCH MCHC RDW Plt Count MPV Immature Gran % (Auto) Neut % (Auto) Lymph % (Auto) Marion % (Auto) Eos % (Auto) Baso % (Auto) Lymph # (Auto) Marion # (Auto) Eos # (Auto) Baso # (Auto) Abs Immat Gran (auto) Absolute Neuts (auto) Absolute Nucleated RBC Nucleated RBC % (auto) VBG pH VBG pCO2 VBG pO2 VBG HCO3 VBG O2 Saturation VBG Base Excess Anion Gap Estim Creat Clear Calc Estimated GFR POC Glucose 302 H Random Glucose Estimat Average Glucose Hemoglobin A1c % Calcium Magnesium Total Bilirubin Direct Bilirubin AST ALT Alkaline Phosphatase Troponin I High Sens B-Natriuretic Peptide Total Protein Albumin TSH Urine Color Urine Appearance Urine pH Ur Specific Malone Urine Protein Urine Glucose (UA) Urine Ketones Urine Blood Urine Nitrite Ur Leukocyte Esterase Urine RBC Urine WBC Ur Squamous Epith Cells Urine Bacteria Hyaline Casts Urine Opiates Screen Urine Fentanyl Screen Ur Barbiturates Screen Ur Phencyclidine Scrn Ur Amphetamines Screen U Benzodiazepines Scrn Urine Cocaine Screen U Marijuana (THC) Screen Ethyl Alcohol Acetone, Qual Imaging Radiologist's Impressions: Impressions Chest X-Ray 11/21/22 12:44 IMPRESSION: Unremarkable chest examination. Assessment and Plan (1) DKA (diabetic ketoacidosis): Status: Acute (2) TYESHA (acute kidney injury): Status: Acute Plan Assessment: 42-year-old gentleman newly diagnosed diabetes mellitus admitted with diabetic ketoacidosis. Plan: Neuro: No acute issues. Cardiac: No acute issues. Pulmonary: No acute issues. Renal: Acute renal failure secondary to diabetic ketoacidosis. Non oliguric. Continue IV fluid resuscitation. Continue to monitor renal indices and urine output. Endo: Diabetic ketoacidosis, continue to titrate off insulin drip as tolerated. GI: No acute issues. ID: No acute issues Heme/Onc: No acute issues. Psych: No acute issues. Miscellaneous: No acute issues. Prophylaxis: Heparin Diet: nothing by mouth Time Spent With Patient Time: Total time managing care of this patient today ____ minutes.
[2022-11-21 15:54] LABS: Glucose, Whole Blood 208 mg/dL (60-115)
[2022-11-21] MEDS: Dextrose 5 % and Lactated Ring 1,000 ML 150 ML IVCONT (16:19)
[2022-11-21 17:06] LABS: Glucose, Whole Blood 191 mg/dL (60-115)
[2022-11-21 18:59] LABS: Glucose, Whole Blood 191 mg/dL (60-115)
[2022-11-21 18:59] LABS: Glucose, Whole Blood 204 mg/dL (60-115)
--- NOTE | 2022-11-21 19:36 | PC.NURSE ---
Assumed care of patient 15:00 Bedside report given to this RN from ED RN. insulin gtt running at 6.75 units/kg/hr upon transfer to ICU from ED 15:00 When next titration due for 16:00, RN saw that in AUG insulin gtt was last titrated to 9 units/kg/hr. Last 15:00 titration from ED missing from AUG record. insulin gtt titrated per DKA protocol D5LR fluids @ 150 ml/hr started per MD orders patient A+Ox4, drowsy at times, naps occationally. Keep NPO per MD, ice chips okay in moderation. high fall precautions in place, call jha in reach.
[2022-11-21 19:57] LABS: Glucose, Whole Blood 168 mg/dL (60-115)
[2022-11-21 20:31] LABS: Anion Gap 15 (12-20); Blood Urea Nitrogen 9 mg/dL (9-16); Calcium 8.2 mg/dL (8.4-10.2); Carbon Dioxide 13 mmol/L (22-29); Chloride 113 mmol/L (96-108); Creatinine Clr Calc Pharmacy 90.3; Estimated Glomerular Filt Rate > 60; Glucose Random 172 mg/dL (60-115); Potassium 3.5 mmol/L (3.3-5.1); Sodium 137 mmol/L (135-145)
[2022-11-21 21:02] LABS: Glucose, Whole Blood 159 mg/dL (60-115)
[2022-11-21] MEDS: Potassium Chloride Packet 20 MEQ PACKET 40 MEQ PO (21:37)
[2022-11-21] MEDS: Sodium Bicarbonate 8.4% 50 MEQ/50 ML SYRINGE 100 MEQ IVPUSH (21:38)
[2022-11-21 22:06] LABS: Glucose, Whole Blood 140 mg/dL (60-115)
[2022-11-21] MEDS: Dextrose 5 % and Lactated Ring 1,000 ML 100 ML IVCONT (22:07)
[2022-11-22] VITALS (14 sets, daily range): BP systolic 105–145; BP diastolic 50–86; PULSE 67–95; RESP 12–22; TEMP 36.1–37.2; O2SAT 96–100; BMI 27.7
[2022-11-22 00:05] LABS: Glucose, Whole Blood 149 mg/dL (60-115)
[2022-11-22 00:53] LABS: Anion Gap 12 (12-20); Blood Urea Nitrogen 10 mg/dL (9-16); Calcium 8.3 mg/dL (8.4-10.2); Carbon Dioxide 17 mmol/L (22-29); Chloride 112 mmol/L (96-108); Creatinine Clr Calc Pharmacy 94.1; Estimated Glomerular Filt Rate > 60; Glucose Fasting 137 mg/dL (60-99); Potassium 3.3 mmol/L (3.3-5.1); Sodium 138 mmol/L (135-145)
[2022-11-22] MEDS: Insulin Glargine,Hum.rec.anlog 100 UNIT/ML 10 ML VIAL 10 UNIT SUBCUT ×2 (00:57→20:07)
[2022-11-22] MEDS: Potassium Chloride Packet 20 MEQ PACKET 40 MEQ PO (01:06)
[2022-11-22 04:22] LABS: Glucose, Whole Blood 200 mg/dL (60-115)
[2022-11-22 04:22] LABS: Glucose, Whole Blood 225 mg/dL (60-115)
[2022-11-22] MEDS: Heparin Sodium,Porcine 5,000 UNIT/ML VIAL 5000 UNIT SUBCUT ×3 (04:30→20:07)
[2022-11-22] MEDS: Insulin Lispro 100 UNIT/ML 3 ML VIAL SUBCUT ×7 (04:30→20:09)
[2022-11-22 04:48] LABS: VBG HCO3 14 mmol/L (22-26); VBG pCO2 27 mmHg; VBG pH 7.31 (7.32-7.43); VBG pO2 35 mmHg
[2022-11-22 05:03] LABS: MANUAL DIFF FLAG NO
[2022-11-22 05:07] LABS: Basophils Percent Auto 0.2 % (0-2); Eosinophils Absolute Auto 0.1 X10*3/uL (0.0-0.4); Eosinophils Percent Auto 0.6 % (0-4); Hematocrit 36.9 % (42.0-52.0); Hemoglobin 12.9 g/dl (14.0-18.0); Imm Gran Abs Auto 0.03 X10*3/uL (0.00-0.03); Imm Gran Pct Auto 0.3 % (0.0-0.4); Lymphocytes Absolute Auto 1.6 X10*3/uL (1.2-4.9); Mean Corpuscular Hemoglobin 29.6 pg (27.0-33.0); Mean Corpuscular Volume 84.6 fL (80.0-98.0); Mean Platelet Volume 10.1 fL (9.4-12.4); Monocytes Absolute Auto 0.7 X10*3/uL (0.1-1.2); Monocytes Percent Auto 7.9 % (2-11); Neutrophils Absolute Auto 6.9 x10*3/uL (2.0-8.3); Platelet Count 189 X10*3/uL (160-400); Red Blood Count 4.36 X10*6/uL (4.60-5.80); Red Cell Distribution Width 12.7 % (11.0-16.0); White Blood Count 9.4 X10*3/uL (4.8-10.8)
[2022-11-22 05:28] LABS: Anion Gap 18 (12-20); Blood Urea Nitrogen 10 mg/dL (9-16); Calcium 8.4 mg/dL (8.4-10.2); Carbon Dioxide 15 mmol/L (22-29); Chloride 110 mmol/L (96-108); Creatinine Clr Calc Pharmacy 84.8; Estimated Glomerular Filt Rate 59; Glucose Random 244 mg/dL (60-115); Magnesium 2.2 mg/dL (1.6-2.6); Phosphorus 1.7 mg/dL (2.7-4.5); Sodium 139 mmol/L (135-145)
[2022-11-22 05:30] LABS: Hemoglobin A1c % > 14.0 %
--- NOTE | 2022-11-22 05:50 | P.PNCC_ITS ---
Subjective Subjective Date of Service: 11/22/22 Interval History: Clinical background:? Patient was admitted yesterday afternoon of with a diagnosis of DKA and new onset diabetes mellitus type 2.? Patient was placed on an insulin drip, IV fluids were given and electrolyte replacement was done.? The a.m. gap close to around 1 in the morning and the drip and IV fluids were discontinued.? Patient was started on Lantus at 25% of the basal a consumption calculation as he is new to this medication.? Insulin sliding scale was also instituted.? Blood sugars were checked for the next several hours to ensure that the patient does not become hypoglycemic again.? Laboratories were checked this morning.? Currently patient has no complaints. ? 114/58;68;14; 98% RA Alert oriented x3 no acute distress Skin intact Heart regular rate and rhythm no murmurs rubs gallops Lungs clear to auscultation bilaterally no wheezes, rales, rhonchi. Abdomen protuberant, positive bowel sounds, nontender. Patient moving all 4 extremities upon request and measure joints , no calf tenderness, no edema. 2+ pulses bilaterally upper and lower extremities. ? Laboratory data review: overall is unremarkable, blood sugar this morning was just above 200 he was covered with insulin sliding scale. Phosphorus 1.7. ? Revised assessment: 1.? New onset diabetes mellitus type 2, less likely type 1 [place] 2.? Resolved DKA 3.? Borderline hypokalemia post replacement 4.? Hypophosphatemia ? Patient is clinically stable, does no longer require insulin drip, evaluation of his ongoing insulin sliding scale requirements should be looked up closely to further adjust his long-term insulin.? Diabetic education will be important. ?Phosphorus replacement ordered He will likely need low dose LEXY inhibitor for renal protection of DM nephropathy. Had a lengthy discussion with the patient about his new diagnosis and the different approaches and modify lifestyle he needs to start from now on inclu ding changes in diet to eliminate and complex carbohydrates, decreasing portion size, increased exercise, eliminate carbonated or sugary drinks among others. ? At this point the patient is ready to transition to next level of care, the case was discussed in detail with the internal medicine physician ? Case discussed with Dr. Madrigal ? Critical care time used for critical evaluation of this patient, diagnosis, treatment and coordination of care, review her records and documentation TOTAL CRITICAL CARE TIME? 60? MIN . discussion and coordination with consultants, completely separate from any procedures performed.? Critical Care Time (minutes): 60 Physical Exam Vital Signs: Vital Signs: Last Vital Signs Temp 97.7 F 11/22/22 05:00 Pulse 67 11/22/22 05:00 Resp 21 H 11/22/22 05:00 BP 105/50 L 11/22/22 05:00 Pulse Ox 97 11/22/22 05:00 O2 Del Method Room Air 11/22/22 05:00 BMI result Body Mass Index 31.3 Objective Data Labs 11/22/22 04:35 11/22/22 04:35 Labs: Laboratory Results - last 24 hr 11/21/22 11/21/22 11/21/22 11:22 11:22 11:22 WBC 8.9 RBC 5.36 Hgb 16.1 Hct 46.1 MCV 86.0 MCH 30.0 MCHC 34.9 RDW 12.7 Plt Count 253 MPV 10.3 Immature Gran % (Auto) 0.5 H Neut % (Auto) 80.1 H Lymph % (Auto) 13.9 L [place] % (Auto) 4.9 Eos % (Auto) 0.1 Baso % (Auto) 0.5 Lymph # (Auto) 1.2 [place] # (Auto) 0.4 Eos # (Auto) 0.0 Baso # (Auto) 0.0 Abs Immat Gran (auto) 0.04 H Absolute Neuts (auto) 7.1 Absolute Nucleated RBC 0.000 Nucleated RBC % (auto) 0.0 VBG pH VBG pCO2 VBG pO2 VBG HCO3 VBG O2 Saturation VBG Base Excess Sodium 135 Potassium 4.0 Chloride 102 Carbon Dioxide 8 L* D Anion Gap 29 H BUN 11 Creatinine 1.83 H Estim Creat Clear Calc 60.7 Estimated GFR 40 POC Glucose Random Glucose 522 H* Fasting Glucose Estimat Average Glucose TNP Hemoglobin A1c % > 14.0 Calcium 9.0 Phosphorus Magnesium 2.4 Total Bilirubin 0.7 Direct Bilirubin 0.2 AST 33 ALT 79 H Alkaline Phosphatase 109 Troponin I High Sens B-Natriuretic Peptide Total Protein 7.8 Albumin 4.8 TSH 0.71 Urine Color Urine Appearance Urine pH Ur Specific [place] Urine Protein Urine Glucose (UA) Urine Ketones Urine Blood Urine Nitrite Ur Leukocyte Esterase Urine RBC Urine WBC Ur Squamous Epith Cells Urine Bacteria Hyaline Casts Urine Opiates Screen Urine Fentanyl Screen Ur Barbiturates Screen Ur Phencyclidine Scrn Ur Amphetamines Screen U Benzodiazepines Scrn Urine Cocaine Screen U Marijuana (THC) Screen Ethyl Alcohol < 10 Acetone, Qual 11/21/22 11/21/22 11/21/22 11:22 11:22 11:22 WBC RBC Hgb Hct MCV MCH MCHC RDW Plt Count MPV Immature Gran % (Auto) Neut % (Auto) Lymph % (Auto) [place] % (Auto) Eos % (Auto) Baso % (Auto) Lymph # (Auto) [place] # (Auto) Eos # (Auto) Baso # (Auto) Abs Immat Gran (auto) Absolute Neuts (auto) Absolute Nucleated RBC Nucleated RBC % (auto) VBG pH VBG pCO2 VBG pO2 VBG HCO3 VBG O2 Saturation VBG Base Excess Sodium Potassium Chloride Carbon Dioxide Anion Gap BUN Creatinine Estim Creat Clear Calc Estimated GFR POC Glucose Random Glucose Fasting Glucose Estimat Average Glucose Hemoglobin A1c % Calcium Phosphorus Magnesium Total Bilirubin Direct Bilirubin AST ALT Alkaline Phosphatase Troponin I High Sens 3.8 B-Natriuretic Peptide < 10 Total Protein Albumin TSH Urine Color Urine Appearance Urine pH Ur Specific [place] Urine Protein Urine Glucose (UA) Urine Ketones Urine Blood Urine Nitrite Ur Leukocyte Esterase Urine RBC Urine WBC Ur Squamous Epith Cells Urine Bacteria Hyaline Casts Urine Opiates Screen Urine Fentanyl Screen Ur Barbiturates Screen Ur Phencyclidine Scrn Ur Amphetamines Screen U Benzodiazepines Scrn Urine Cocaine Screen U Marijuana (THC) Screen Ethyl Alcohol Acetone, Qual Moderate H 11/21/22 11/21/22 11/21/22 11:22 11:22 11:30 WBC RBC Hgb Hct MCV MCH MCHC RDW Plt Count MPV Immature Gran % (Auto) Neut % (Auto) Lymph % (Auto) [place] % (Auto) Eos % (Auto) Baso % (Auto) Lymph # (Auto) [place] # (Auto) Eos # (Auto) Baso # (Auto) Abs Immat Gran (auto) Absolute Neuts (auto) Absolute Nucleated RBC Nucleated RBC % (auto) VBG pH 7.14 L* VBG pCO2 28 VBG pO2 28 VBG HCO3 10 L VBG O2 Saturation 48.0 VBG Base Excess -17.3 Sodium Potassium Chloride Carbon Dioxide Anion Gap BUN Creatinine Estim Creat Clear Calc Estimated GFR POC Glucose Random Glucose Fasting Glucose Estimat Average Glucose Hemoglobin A1c % Calcium Phosphorus Magnesium Total Bilirubin Direct Bilirubin AST ALT Alkaline Phosphatase Troponin I High Sens B-Natriuretic Peptide Total Protein Albumin TSH Urine Color Yellow Urine Appearance Clear Urine pH 5.0 Ur Specific [place] >= 1.030 H Urine Protein 30 (1+) H Urine Glucose (UA) >=1000 H Urine Ketones >=160 Urine Blood Trace H Urine Nitrite Negative Ur Leukocyte Esterase Negative Urine RBC 0-2 Urine WBC 0-5 Ur Squamous Epith Cells 0-2 Urine Bacteria None Seen Hyaline Casts 6-10 Urine Opiates Screen Not Detected Urine Fentanyl Screen Not Detected Ur Barbiturates Screen Not Detected Ur Phencyclidine Scrn Not Detected Ur Amphetamines Screen Not Detected U Benzodiazepines Scrn Not Detected Urine Cocaine Screen Not Detected U Marijuana (THC) Screen POSITIVE H Ethyl Alcohol Acetone, Qual 11/21/22 11/21/22 11/21/22 12:05 13:29 13:29 WBC RBC Hgb Hct MCV MCH MCHC RDW Plt Count MPV Immature Gran % (Auto) Neut % (Auto) Lymph % (Auto) [place] % (Auto) Eos % (Auto) Baso % (Auto) Lymph # (Auto) [place] # (Auto) Eos # (Auto) Baso # (Auto) Abs Immat Gran (auto) Absolute Neuts (auto) Absolute Nucleated RBC Nucleated RBC % (auto) VBG pH VBG pCO2 VBG pO2 VBG HCO3 VBG O2 Saturation VBG Base Excess Sodium 138 Potassium 3.9 Chloride 110 H Carbon Dioxide 11 L Anion Gap 21 H BUN 11 Creatinine 1.54 H Estim Creat Clear Calc 72.1 Estimated GFR 49 POC Glucose 432 H* 311 H Random Glucose 329 H Fasting Glucose Estimat Average Glucose Hemoglobin A1c % Calcium 7.9 L D Phosphorus Magnesium Total Bilirubin Direct Bilirubin AST ALT Alkaline Phosphatase Troponin I High Sens B-Natriuretic Peptide Total Protein Albumin TSH Urine Color Urine Appearance Urine pH Ur Specific [place] Urine Protein Urine Glucose (UA) Urine Ketones Urine Blood Urine Nitrite Ur Leukocyte Esterase Urine RBC Urine WBC Ur Squamous Epith Cells Urine Bacteria Hyaline Casts Urine Opiates Screen Urine Fentanyl Screen Ur Barbiturates Screen Ur Phencyclidine Scrn Ur Amphetamines Screen U Benzodiazepines Scrn Urine Cocaine Screen U Marijuana (THC) Screen Ethyl Alcohol Acetone, Qual 11/21/22 11/21/22 11/21/22 14:23 15:51 17:02 WBC RBC Hgb Hct MCV MCH MCHC RDW Plt Count MPV Immature Gran % (Auto) Neut % (Auto) Lymph % (Auto) [place] % (Auto) Eos % (Auto) Baso % (Auto) Lymph # (Auto) [place] # (Auto) Eos # (Auto) Baso # (Auto) Abs Immat Gran (auto) Absolute Neuts (auto) Absolute Nucleated RBC Nucleated RBC % (auto) VBG pH VBG pCO2 VBG pO2 VBG HCO3 VBG O2 Saturation VBG Base Excess Sodium Potassium Chloride Carbon Dioxide Anion Gap BUN Creatinine Estim Creat Clear Calc Estimated GFR POC Glucose 302 H 208 H 191 H Random Glucose Fasting Glucose Estimat Average Glucose Hemoglobin A1c % Calcium Phosphorus Magnesium Total Bilirubin Direct Bilirubin AST ALT Alkaline Phosphatase Troponin I High Sens B-Natriuretic Peptide Total Protein Albumin TSH Urine Color Urine Appearance Urine pH Ur Specific [place] Urine Protein Urine Glucose (UA) Urine Ketones Urine Blood Urine Nitrite Ur Leukocyte Esterase Urine RBC Urine WBC Ur Squamous Epith Cells Urine Bacteria Hyaline Casts Urine Opiates Screen Urine Fentanyl Screen Ur Barbiturates Screen Ur Phencyclidine Scrn Ur Amphetamines Screen U Benzodiazepines Scrn Urine Cocaine Screen U Marijuana (THC) Screen Ethyl Alcohol Acetone, Qual 11/21/22 11/21/22 11/21/22 18:09 18:55 19:53 WBC RBC Hgb Hct MCV MCH MCHC RDW Plt Count MPV Immature Gran % (Auto) Neut % (Auto) Lymph % (Auto) [place] % (Auto) Eos % (Auto) Baso % (Auto) Lymph # (Auto) [place] # (Auto) Eos # (Auto) Baso # (Auto) Abs Immat Gran (auto) Absolute Neuts (auto) Absolute Nucleated RBC Nucleated RBC % (auto) VBG pH VBG pCO2 VBG pO2 VBG HCO3 VBG O2 Saturation VBG Base Excess Sodium Potassium Chloride Carbon Dioxide Anion Gap BUN Creatinine Estim Creat Clear Calc Estimated GFR POC Glucose 204 H 191 H 168 H Random Glucose Fasting Glucose Estimat Average Glucose Hemoglobin A1c % Calcium Phosphorus Magnesium Total Bilirubin Direct Bilirubin AST ALT Alkaline Phosphatase Troponin I High Sens B-Natriuretic Peptide Total Protein Albumin TSH Urine Color Urine Appearance Urine pH Ur Specific [place] Urine Protein Urine Glucose (UA) Urine Ketones Urine Blood Urine Nitrite Ur Leukocyte Esterase Urine RBC Urine WBC Ur Squamous Epith Cells Urine Bacteria Hyaline Casts Urine Opiates Screen Urine Fentanyl Screen Ur Barbiturates Screen Ur Phencyclidine Scrn Ur Amphetamines Screen U Benzodiazepines Scrn Urine Cocaine Screen U Marijuana (THC) Screen Ethyl Alcohol Acetone, Qual 11/21/22 11/21/22 11/21/22 20:07 20:58 22:02 WBC RBC Hgb Hct MCV MCH MCHC RDW Plt Count MPV Immature Gran % (Auto) Neut % (Auto) Lymph % (Auto) [place] % (Auto) Eos % (Auto) Baso % (Auto) Lymph # (Auto) [place] # (Auto) Eos # (Auto) Baso # (Auto) Abs Immat Gran (auto) Absolute Neuts (auto) Absolute Nucleated RBC Nucleated RBC % (auto) VBG pH VBG pCO2 VBG pO2 VBG HCO3 VBG O2 Saturation VBG Base Excess Sodium 137 Potassium 3.5 Chloride 113 H Carbon Dioxide 13 L Anion Gap 15 BUN 9 Creatinine 1.23 Estim Creat Clear Calc 90.3 Estimated GFR > 60 POC Glucose 159 H 140 H Random Glucose 172 H Fasting Glucose Estimat Average Glucose Hemoglobin A1c % Calcium 8.2 L Phosphorus Magnesium Total Bilirubin Direct Bilirubin AST ALT Alkaline Phosphatase Troponin I High Sens B-Natriuretic Peptide Total Protein Albumin TSH Urine Color Urine Appearance Urine pH Ur Specific [place] Urine Protein Urine Glucose (UA) Urine Ketones Urine Blood Urine Nitrite Ur Leukocyte Esterase Urine RBC Urine WBC Ur Squamous Epith Cells Urine Bacteria Hyaline Casts Urine Opiates Screen Urine Fentanyl Screen Ur Barbiturates Screen Ur Phencyclidine Scrn Ur Amphetamines Screen U Benzodiazepines Scrn Urine Cocaine Screen U Marijuana (THC) Screen Ethyl Alcohol Acetone, Qual 11/22/22 11/22/22 11/22/22 00:02 00:31 00:31 WBC RBC Hgb Hct MCV MCH MCHC RDW Plt Count MPV Immature Gran % (Auto) Neut % (Auto) Lymph % (Auto) [place] % (Auto) Eos % (Auto) Baso % (Auto) Lymph # (Auto) [place] # (Auto) Eos # (Auto) Baso # (Auto) Abs Immat Gran (auto) Absolute Neuts (auto) Absolute Nucleated RBC Nucleated RBC % (auto) VBG pH VBG pCO2 VBG pO2 VBG HCO3 VBG O2 Saturation VBG Base Excess Sodium 138 Potassium 3.3 Chloride 112 H Carbon Dioxide 17 L Anion Gap 12 BUN 10 Creatinine 1.18 Estim Creat Clear Calc 94.1 Estimated GFR > 60 POC Glucose 149 H Random Glucose Fasting Glucose 137 H Estimat Average Glucose TNP Hemoglobin A1c % > 14.0 Calcium 8.3 L Phosphorus Magnesium Total Bilirubin Direct Bilirubin AST ALT Alkaline Phosphatase Troponin I High Sens B-Natriuretic Peptide Total Protein Albumin TSH Urine Color Urine Appearance Urine pH Ur Specific [place] Urine Protein Urine Glucose (UA) Urine Ketones Urine Blood Urine Nitrite Ur Leukocyte Esterase Urine RBC Urine WBC Ur Squamous Epith Cells Urine Bacteria Hyaline Casts Urine Opiates Screen Urine Fentanyl Screen Ur Barbiturates Screen Ur Phencyclidine Scrn Ur Amphetamines Screen U Benzodiazepines Scrn Urine Cocaine Screen U Marijuana (THC) Screen Ethyl Alcohol Acetone, Qual 11/22/22 11/22/22 11/22/22 03:23 04:17 04:35 WBC 9.4 RBC 4.36 L Hgb 12.9 L Hct 36.9 L MCV 84.6 MCH 29.6 MCHC 35.0 RDW 12.7 Plt Count 189 D MPV 10.1 Immature Gran % (Auto) 0.3 Neut % (Auto) 74.0 H Lymph % (Auto) 17.0 L [place] % (Auto) 7.9 Eos % (Auto) 0.6 Baso % (Auto) 0.2 Lymph # (Auto) 1.6 [place] # (Auto) 0.7 Eos # (Auto) 0.1 Baso # (Auto) 0.0 Abs Immat Gran (auto) 0.03 Absolute Neuts (auto) 6.9 Absolute Nucleated RBC 0.000 Nucleated RBC % (auto) 0.0 VBG pH VBG pCO2 VBG pO2 VBG HCO3 VBG O2 Saturation VBG Base Excess Sodium Potassium Chloride Carbon Dioxide Anion Gap BUN Creatinine Estim Creat Clear Calc Estimated GFR POC Glucose 200 H 225 H Random Glucose Fasting Glucose Estimat Average Glucose Hemoglobin A1c % Calcium Phosphorus Magnesium Total Bilirubin Direct Bilirubin AST ALT Alkaline Phosphatase Troponin I High Sens B-Natriuretic Peptide Total Protein Albumin TSH Urine Color Urine Appearance Urine pH Ur Specific [place] Urine Protein Urine Glucose (UA) Urine Ketones Urine Blood Urine Nitrite Ur Leukocyte Esterase Urine RBC Urine WBC Ur Squamous Epith Cells Urine Bacteria Hyaline Casts Urine Opiates Screen Urine Fentanyl Screen Ur Barbiturates Screen Ur Phencyclidine Scrn Ur Amphetamines Screen U Benzodiazepines Scrn Urine Cocaine Screen U Marijuana (THC) Screen Ethyl Alcohol Acetone, Qual 11/22/22 11/22/22 04:35 04:38 WBC RBC Hgb Hct MCV MCH MCHC RDW Plt Count MPV Immature Gran % (Auto) Neut % (Auto) Lymph % (Auto) [place] % (Auto) Eos % (Auto) Baso % (Auto) Lymph # (Auto) [place] # (Auto) Eos # (Auto) Baso # (Auto) Abs Immat Gran (auto) Absolute Neuts (auto) Absolute Nucleated RBC Nucleated RBC % (auto) VBG pH 7.31 L VBG pCO2 27 VBG pO2 35 VBG HCO3 14 L VBG O2 Saturation 67.0 VBG Base Excess -10.0 Sodium 139 Potassium 4.0 D Chloride 110 H Carbon Dioxide 15 L Anion Gap 18 BUN 10 Creatinine 1.31 Estim Creat Clear Calc 84.8 Estimated GFR 59 POC Glucose Random Glucose 244 H Fasting Glucose Estimat Average Glucose Hemoglobin A1c % Calcium 8.4 Phosphorus 1.7 L Magnesium 2.2 Total Bilirubin Direct Bilirubin AST ALT Alkaline Phosphatase Troponin I High Sens B-Natriuretic Peptide Total Protein Albumin TSH Urine Color Urine Appearance Urine pH Ur Specific [place] Urine Protein Urine Glucose (UA) Urine Ketones Urine Blood Urine Nitrite Ur Leukocyte Esterase Urine RBC Urine WBC Ur Squamous Epith Cells Urine Bacteria Hyaline Casts Urine Opiates Screen Urine Fentanyl Screen Ur Barbiturates Screen Ur Phencyclidine Scrn Ur Amphetamines Screen U Benzodiazepines Scrn Urine Cocaine Screen U Marijuana (THC) Screen Ethyl Alcohol Acetone, Qual Quality Stroke Does the patient have a stroke diagnosis?: No VTE Prior VTE?: No VTE Risk Level:: Medical - moderate - high VTE Device Contraindication: Treatment Not Indicated VTE Drug Contraindication: N/A - Med Ordered
[2022-11-22 06:01] LABS: Venous Blood Gas Refer to POC result
[2022-11-22 07:52] LABS: Glucose, Whole Blood 207 mg/dL (60-115)
[2022-11-22] MEDS: Sodium,Potassium Phosphates POWD.PACK 2 PACKET PO ×4 (08:17→20:07)
--- NOTE | 2022-11-22 09:57 | MHC.CM.PN ---
Met w/pt to review d/c planning needs: pt very sleepy: information difficult to obtain: pt resides w/significant other, has no barriers to care or services - would benefit from DM teaching/management as he is a new diabetic with an A1C >14% and was admitted w/DKA. PCP Dr. Ricketts. No HCP on file. Pt will call family for transportation to home.
--- NOTE | 2022-11-22 10:45 | HO.PM.IMPN ---
Subjective Subjective Date of Service: 11/22/22 Interval History: weakness Physical Exam Vital Signs: Vital Signs: Last Vital Signs Temp 99 F 11/22/22 10:38 Pulse 87 11/22/22 10:38 Resp 12 11/22/22 10:38 BP 139/86 11/22/22 10:38 Pulse Ox 100 11/22/22 09:00 O2 Del Method Room Air 11/22/22 10:38 BMI result Body Mass Index 27.7 General: AO X 3, no acute distress Resp: CTA bilateral, no accessory muscles used CVS: S1,S2,RRR GI: soft, non tender, non distended Neuro: motor grossly intact, alert Psych: appropriate affect, appropriate insight Objective Data Active Medications Atorvastatin Calcium (Atorvastatin Calcium 40 Mg Tablet) 40 mg PO BEDTIME [facility] Clonazepam (Clonazepam 1 Mg Tablet) 1 mg PO BID PRN PRN Reason: depression Heparin Sodium (Porcine) (Heparin Sodium,Porcine 5,000 Unit/Ml Vial) 5,000 unit SUBCUT Q8H [facility] Last Admin: 11/22/22 04:30 Dose: 5,000 unit Documented By: MARIO Dextrose (D10) 250 mls @ 750 mls/hr IV Q30M PRN PRN Reason: BG < 70 Insulin Glargine (Insulin Glargine,Hum.Rec.Anlog 100 Unit/Ml 10 Ml Vial) 10 unit SUBCUT BEDTIME [facility] Last Admin: 11/22/22 00:57 Dose: 10 unit Documented By: MARIO Insulin Human Lispro (Insulin Lispro 100 Unit/Ml 3 Ml Vial) 0 unit SUBCUT QIDACHS [facility]; Protocol Last Admin: 11/22/22 08:18 Dose: 4 unit Documented By: MICHAEL Pharmacy Consult (Consult Rx Perform Med Rec) 1 each MISCELLANE ONCE PRN PRN Reason: Consult order Potassium Phos/Sodium Phos (Sodium,Potassium Phosphates Powd.Pack) 2 packet PO QID [facility] Stop: 11/22/22 21:01 Last Admin: 11/22/22 08:17 Dose: 2 packet Documented By: MICHAEL Quetiapine Fumarate (Quetiapine Fumarate 300 Mg Tablet) 600 mg PO BEDTIME [facility] Sertraline HCl (Sertraline Hcl 50 Mg Tablet) 150 mg PO DAILY [facility] Labs 11/22/22 04:35 11/22/22 04:35 Labs: Laboratory Results - last 24 hr 11/21/22 11/21/22 11/21/22 11:22 11:22 11:22 MCV 86.0 MCH 30.0 MCHC 34.9 RDW 12.7 Plt Count 253 MPV 10.3 Immature Gran % (Auto) 0.5 H Neut % (Auto) 80.1 H Lymph % (Auto) 13.9 L [place] % (Auto) 4.9 Eos % (Auto) 0.1 Baso % (Auto) 0.5 Lymph # (Auto) 1.2 [place] # (Auto) 0.4 Eos # (Auto) 0.0 Baso # (Auto) 0.0 Abs Immat Gran (auto) 0.04 H Absolute Neuts (auto) 7.1 Absolute Nucleated RBC 0.000 Nucleated RBC % (auto) 0.0 VBG pH VBG pCO2 VBG pO2 VBG HCO3 VBG O2 Saturation VBG Base Excess Anion Gap 29 H Estim Creat Clear Calc 60.7 Estimated GFR 40 POC Glucose Random Glucose 522 H* Fasting Glucose Estimat Average Glucose TNP Hemoglobin A1c % > 14.0 Calcium 9.0 Phosphorus Magnesium 2.4 Total Bilirubin 0.7 Direct Bilirubin 0.2 AST 33 ALT 79 H Alkaline Phosphatase 109 Troponin I High Sens B-Natriuretic Peptide Total Protein 7.8 Albumin 4.8 TSH 0.71 Urine Color Urine Appearance Urine pH Ur Specific [place] Urine Protein Urine Glucose (UA) Urine Ketones Urine Blood Urine Nitrite Ur Leukocyte Esterase Urine RBC Urine WBC Ur Squamous Epith Cells Urine Bacteria Hyaline Casts Urine Opiates Screen Urine Fentanyl Screen Ur Barbiturates Screen Ur Phencyclidine Scrn Ur Amphetamines Screen U Benzodiazepines Scrn Urine Cocaine Screen U Marijuana (THC) Screen Ethyl Alcohol < 10 Acetone, Qual 11/21/22 11/21/22 11/21/22 11:22 11:22 11:22 MCV MCH MCHC RDW Plt Count MPV Immature Gran % (Auto) Neut % (Auto) Lymph % (Auto) [place] % (Auto) Eos % (Auto) Baso % (Auto) Lymph # (Auto) [place] # (Auto) Eos # (Auto) Baso # (Auto) Abs Immat Gran (auto) Absolute Neuts (auto) Absolute Nucleated RBC Nucleated RBC % (auto) VBG pH VBG pCO2 VBG pO2 VBG HCO3 VBG O2 Saturation VBG Base Excess Anion Gap Estim Creat Clear Calc Estimated GFR POC Glucose Random Glucose Fasting Glucose Estimat Average Glucose Hemoglobin A1c % Calcium Phosphorus Magnesium Total Bilirubin Direct Bilirubin AST ALT Alkaline Phosphatase Troponin I High Sens 3.8 B-Natriuretic Peptide < 10 Total Protein Albumin TSH Urine Color Urine Appearance Urine pH Ur Specific [place] Urine Protein Urine Glucose (UA) Urine Ketones Urine Blood Urine Nitrite Ur Leukocyte Esterase Urine RBC Urine WBC Ur Squamous Epith Cells Urine Bacteria Hyaline Casts Urine Opiates Screen Urine Fentanyl Screen Ur Barbiturates Screen Ur Phencyclidine Scrn Ur Amphetamines Screen U Benzodiazepines Scrn Urine Cocaine Screen U Marijuana (THC) Screen Ethyl Alcohol Acetone, Qual Moderate H 11/21/22 11/21/22 11/21/22 11:22 11:22 11:30 MCV MCH MCHC RDW Plt Count MPV Immature Gran % (Auto) Neut % (Auto) Lymph % (Auto) [place] % (Auto) Eos % (Auto) Baso % (Auto) Lymph # (Auto) [place] # (Auto) Eos # (Auto) Baso # (Auto) Abs Immat Gran (auto) Absolute Neuts (auto) Absolute Nucleated RBC Nucleated RBC % (auto) VBG pH 7.14 L* VBG pCO2 28 VBG pO2 28 VBG HCO3 10 L VBG O2 Saturation 48.0 VBG Base Excess -17.3 Anion Gap Estim Creat Clear Calc Estimated GFR POC Glucose Random Glucose Fasting Glucose Estimat Average Glucose Hemoglobin A1c % Calcium Phosphorus Magnesium Total Bilirubin Direct Bilirubin AST ALT Alkaline Phosphatase Troponin I High Sens B-Natriuretic Peptide Total Protein Albumin TSH Urine Color Yellow Urine Appearance Clear Urine pH 5.0 Ur Specific [place] >= 1.030 H Urine Protein 30 (1+) H Urine Glucose (UA) >=1000 H Urine Ketones >=160 Urine Blood Trace H Urine Nitrite Negative Ur Leukocyte Esterase Negative Urine RBC 0-2 Urine WBC 0-5 Ur Squamous Epith Cells 0-2 Urine Bacteria None Seen Hyaline Casts 6-10 Urine Opiates Screen Not Detected Urine Fentanyl Screen Not Detected Ur Barbiturates Screen Not Detected Ur Phencyclidine Scrn Not Detected Ur Amphetamines Screen Not Detected U Benzodiazepines Scrn Not Detected Urine Cocaine Screen Not Detected U Marijuana (THC) Screen POSITIVE H Ethyl Alcohol Acetone, Qual 11/21/22 11/21/22 11/21/22 12:05 13:29 13:29 MCV MCH MCHC RDW Plt Count MPV Immature Gran % (Auto) Neut % (Auto) Lymph % (Auto) [place] % (Auto) Eos % (Auto) Baso % (Auto) Lymph # (Auto) [place] # (Auto) Eos # (Auto) Baso # (Auto) Abs Immat Gran (auto) Absolute Neuts (auto) Absolute Nucleated RBC Nucleated RBC % (auto) VBG pH VBG pCO2 VBG pO2 VBG HCO3 VBG O2 Saturation VBG Base Excess Anion Gap 21 H Estim Creat Clear Calc 72.1 Estimated GFR 49 POC Glucose 432 H* 311 H Random Glucose 329 H Fasting Glucose Estimat Average Glucose Hemoglobin A1c % Calcium 7.9 L D Phosphorus Magnesium Total Bilirubin Direct Bilirubin AST ALT Alkaline Phosphatase Troponin I High Sens B-Natriuretic Peptide Total Protein Albumin TSH Urine Color Urine Appearance Urine pH Ur Specific [place] Urine Protein Urine Glucose (UA) Urine Ketones Urine Blood Urine Nitrite Ur Leukocyte Esterase Urine RBC Urine WBC Ur Squamous Epith Cells Urine Bacteria Hyaline Casts Urine Opiates Screen Urine Fentanyl Screen Ur Barbiturates Screen Ur Phencyclidine Scrn Ur Amphetamines Screen U Benzodiazepines Scrn Urine Cocaine Screen U Marijuana (THC) Screen Ethyl Alcohol Acetone, Qual 11/21/22 11/21/22 11/21/22 14:23 15:51 17:02 MCV MCH MCHC RDW Plt Count MPV Immature Gran % (Auto) Neut % (Auto) Lymph % (Auto) [place] % (Auto) Eos % (Auto) Baso % (Auto) Lymph # (Auto) [place] # (Auto) Eos # (Auto) Baso # (Auto) Abs Immat Gran (auto) Absolute Neuts (auto) Absolute Nucleated RBC Nucleated RBC % (auto) VBG pH VBG pCO2 VBG pO2 VBG HCO3 VBG O2 Saturation VBG Base Excess Anion Gap Estim Creat Clear Calc Estimated GFR POC Glucose 302 H 208 H 191 H Random Glucose Fasting Glucose Estimat Average Glucose Hemoglobin A1c % Calcium Phosphorus Magnesium Total Bilirubin Direct Bilirubin AST ALT Alkaline Phosphatase Troponin I High Sens B-Natriuretic Peptide Total Protein Albumin TSH Urine Color Urine Appearance Urine pH Ur Specific [place] Urine Protein Urine Glucose (UA) Urine Ketones Urine Blood Urine Nitrite Ur Leukocyte Esterase Urine RBC Urine WBC Ur Squamous Epith Cells Urine Bacteria Hyaline Casts Urine Opiates Screen Urine Fentanyl Screen Ur Barbiturates Screen Ur Phencyclidine Scrn Ur Amphetamines Screen U Benzodiazepines Scrn Urine Cocaine Screen U Marijuana (THC) Screen Ethyl Alcohol Acetone, Qual 05/11/21/22 11/21/22 18:09 18:55 19:53 MCV MCH MCHC RDW Plt Count MPV Immature Gran % (Auto) Neut % (Auto) Lymph % (Auto) [place] % (Auto) Eos % (Auto) Baso % (Auto) Lymph # (Auto) [place] # (Auto) Eos # (Auto) Baso # (Auto) Abs Immat Gran (auto) Absolute Neuts (auto) Absolute Nucleated RBC Nucleated RBC % (auto) VBG pH VBG pCO2 VBG pO2 VBG HCO3 VBG O2 Saturation VBG Base Excess Anion Gap Estim Creat Clear Calc Estimated GFR POC Glucose 204 H 191 H 168 H Random Glucose Fasting Glucose Estimat Average Glucose Hemoglobin A1c % Calcium Phosphorus Magnesium Total Bilirubin Direct Bilirubin AST ALT Alkaline Phosphatase Troponin I High Sens B-Natriuretic Peptide Total Protein Albumin TSH Urine Color Urine Appearance Urine pH Ur Specific [place] Urine Protein Urine Glucose (UA) Urine Ketones Urine Blood Urine Nitrite Ur Leukocyte Esterase Urine RBC Urine WBC Ur Squamous Epith Cells Urine Bacteria Hyaline Casts Urine Opiates Screen Urine Fentanyl Screen Ur Barbiturates Screen Ur Phencyclidine Scrn Ur Amphetamines Screen U Benzodiazepines Scrn Urine Cocaine Screen U Marijuana (THC) Screen Ethyl Alcohol Acetone, Qual 11/21/22 11/21/22 11/21/22 20:07 20:58 22:02 MCV MCH MCHC RDW Plt Count MPV Immature Gran % (Auto) Neut % (Auto) Lymph % (Auto) [place] % (Auto) Eos % (Auto) Baso % (Auto) Lymph # (Auto) [place] # (Auto) Eos # (Auto) Baso # (Auto) Abs Immat Gran (auto) Absolute Neuts (auto) Absolute Nucleated RBC Nucleated RBC % (auto) VBG pH VBG pCO2 VBG pO2 VBG HCO3 VBG O2 Saturation VBG Base Excess Anion Gap 15 Estim Creat Clear Calc 90.3 Estimated GFR > 60 POC Glucose 159 H 140 H Random Glucose 172 H Fasting Glucose Estimat Average Glucose Hemoglobin A1c % Calcium 8.2 L Phosphorus Magnesium Total Bilirubin Direct Bilirubin AST ALT Alkaline Phosphatase Troponin I High Sens B-Natriuretic Peptide Total Protein Albumin TSH Urine Color Urine Appearance Urine pH Ur Specific [place] Urine Protein Urine Glucose (UA) Urine Ketones Urine Blood Urine Nitrite Ur Leukocyte Esterase Urine RBC Urine WBC Ur Squamous Epith Cells Urine Bacteria Hyaline Casts Urine Opiates Screen Urine Fentanyl Screen Ur Barbiturates Screen Ur Phencyclidine Scrn Ur Amphetamines Screen U Benzodiazepines Scrn Urine Cocaine Screen U Marijuana (THC) Screen Ethyl Alcohol Acetone, Qual 11/22/22 11/22/22 11/22/22 00:02 00:31 00:31 MCV MCH MCHC RDW Plt Count MPV Immature Gran % (Auto) Neut % (Auto) Lymph % (Auto) [place] % (Auto) Eos % (Auto) Baso % (Auto) Lymph # (Auto) [place] # (Auto) Eos # (Auto) Baso # (Auto) Abs Immat Gran (auto) Absolute Neuts (auto) Absolute Nucleated RBC Nucleated RBC % (auto) VBG pH VBG pCO2 VBG pO2 VBG HCO3 VBG O2 Saturation VBG Base Excess Anion Gap 12 Estim Creat Clear Calc 94.1 Estimated GFR > 60 POC Glucose 149 H Random Glucose Fasting Glucose 137 H Estimat Average Glucose TNP Hemoglobin A1c % > 14.0 Calcium 8.3 L Phosphorus Magnesium Total Bilirubin Direct Bilirubin AST ALT Alkaline Phosphatase Troponin I High Sens B-Natriuretic Peptide Total Protein Albumin TSH Urine Color Urine Appearance Urine pH Ur Specific [place] Urine Protein Urine Glucose (UA) Urine Ketones Urine Blood Urine Nitrite Ur Leukocyte Esterase Urine RBC Urine WBC Ur Squamous Epith Cells Urine Bacteria Hyaline Casts Urine Opiates Screen Urine Fentanyl Screen Ur Barbiturates Screen Ur Phencyclidine Scrn Ur Amphetamines Screen U Benzodiazepines Scrn Urine Cocaine Screen U Marijuana (THC) Screen Ethyl Alcohol Acetone, Qual 11/22/22 11/22/22 11/22/22 03:23 04:17 04:35 MCV 84.6 MCH 29.6 MCHC 35.0 RDW 12.7 Plt Count 189 D MPV 10.1 Immature Gran % (Auto) 0.3 Neut % (Auto) 74.0 H Lymph % (Auto) 17.0 L [place] % (Auto) 7.9 Eos % (Auto) 0.6 Baso % (Auto) 0.2 Lymph # (Auto) 1.6 [place] # (Auto) 0.7 Eos # (Auto) 0.1 Baso # (Auto) 0.0 Abs Immat Gran (auto) 0.03 Absolute Neuts (auto) 6.9 Absolute Nucleated RBC 0.000 Nucleated RBC % (auto) 0.0 VBG pH VBG pCO2 VBG pO2 VBG HCO3 VBG O2 Saturation VBG Base Excess Anion Gap Estim Creat Clear Calc Estimated GFR POC Glucose 200 H 225 H Random Glucose Fasting Glucose Estimat Average Glucose Hemoglobin A1c % Calcium Phosphorus Magnesium Total Bilirubin Direct Bilirubin AST ALT Alkaline Phosphatase Troponin I High Sens B-Natriuretic Peptide Total Protein Albumin TSH Urine Color Urine Appearance Urine pH Ur Specific [place] Urine Protein Urine Glucose (UA) Urine Ketones Urine Blood Urine Nitrite Ur Leukocyte Esterase Urine RBC Urine WBC Ur Squamous Epith Cells Urine Bacteria Hyaline Casts Urine Opiates Screen Urine Fentanyl Screen Ur Barbiturates Screen Ur Phencyclidine Scrn Ur Amphetamines Screen U Benzodiazepines Scrn Urine Cocaine Screen U Marijuana (THC) Screen Ethyl Alcohol Acetone, Qual 11/22/22 11/22/22 11/22/22 04:35 04:38 07:49 MCV MCH MCHC RDW Plt Count MPV Immature Gran % (Auto) Neut % (Auto) Lymph % (Auto) [place] % (Auto) Eos % (Auto) Baso % (Auto) Lymph # (Auto) [place] # (Auto) Eos # (Auto) Baso # (Auto) Abs Immat Gran (auto) Absolute Neuts (auto) Absolute Nucleated RBC Nucleated RBC % (auto) VBG pH 7.31 L VBG pCO2 27 VBG pO2 35 VBG HCO3 14 L VBG O2 Saturation 67.0 VBG Base Excess -10.0 Anion Gap 18 Estim Creat Clear Calc 84.8 Estimated GFR 59 POC Glucose 207 H Random Glucose 244 H Fasting Glucose Estimat Average Glucose Hemoglobin A1c % Calcium 8.4 Phosphorus 1.7 L Magnesium 2.2 Total Bilirubin Direct Bilirubin AST ALT Alkaline Phosphatase Troponin I High Sens B-Natriuretic Peptide Total Protein Albumin TSH Urine Color Urine Appearance Urine pH Ur Specific [place] Urine Protein Urine Glucose (UA) Urine Ketones Urine Blood Urine Nitrite Ur Leukocyte Esterase Urine RBC Urine WBC Ur Squamous Epith Cells Urine Bacteria Hyaline Casts Urine Opiates Screen Urine Fentanyl Screen Ur Barbiturates Screen Ur Phencyclidine Scrn Ur Amphetamines Screen U Benzodiazepines Scrn Urine Cocaine Screen U Marijuana (THC) Screen Ethyl Alcohol Acetone, Qual Assessment and Plan (1) DKA (diabetic ketoacidosis): Status: Acute Plan 42M PMH obesity, hld, mood disorder presented in DKA, admitted to ICU, gap closed, now downgraded. DKA in new DM gap closed, now on basal bolus insulin diabetes education monitor bmp obesity wegith loss hld statin mood disorder zoloft, seroquel dvt prophyalxis - hep sq full code reason for continued hospitalization:awaiting better glucose control, better appetite Time Spent With Patient Time: Total time managing care of this patient today ____ minutes. Quality Stroke Does the patient have a stroke diagnosis?: No VTE Prior VTE?: No VTE Risk Level:: Medical - moderate - high VTE Device Contraindication: Treatment Not Indicated VTE Drug Contraindication: N/A - Med Ordered
[2022-11-22 11:14] LABS: Anion Gap 15 (12-20); Blood Urea Nitrogen 10 mg/dL (9-16); Calcium 8.1 mg/dL (8.4-10.2); Carbon Dioxide 15 mmol/L (22-29); Chloride 108 mmol/L (96-108); Creatinine Clr Calc Pharmacy 77.2; Estimated Glomerular Filt Rate > 60; Potassium 4.1 mmol/L (3.3-5.1); Sodium 134 mmol/L (135-145)
--- NOTE | 2022-11-22 11:30 | MHC.CLN ---
RE: CONSULT SEE ALSO FULL CLINICAL NUTRITION ASSESSMENT PT NEWLY DX DIABETIC DIET RX: 1800DM CARDIAC-RECOMMEND 2000DM DIET NSG REPORTED PT EATS CANDY BARS FOR BREAKFAST AND INCREASED AMOUNTS OF JUICE AIC 14% DM TEACHING COMPLETED WITH PT: REVIEWED FOODS THAT AFFECT BS. EDUCATED PT ON AVOIDING JUICE, CANDY BARS, HIGH CHO, LOW FIBER FOODS AND PORTION CONTROL. HANDOUTS GIVEN ON 2000 CALORIE DIET SEE TEACHING RECORD RECOMMEND OUT PT RD FOLLOW UP FOR DIET RE-ENFORCEMENT
[2022-11-22 11:31] LABS: Glucose Random 463 mg/dL (60-115)
[2022-11-22 11:31] LABS: Glucose, Whole Blood 412 mg/dL (60-115)
[2022-11-22] MEDS: Insulin Lispro 100 UNIT/ML 3 ML VIAL 10 UNIT SUBCUT (11:56)
[2022-11-22] MEDS: Sertraline HCL 50 MG TABLET 150 MG PO (12:00)
[2022-11-22] MEDS: clonazePAM 1 MG TABLET PO (14:07)
[2022-11-22 16:21] LABS: Glucose, Whole Blood 263 mg/dL (60-115)
[2022-11-22 19:50] LABS: Glucose, Whole Blood 313 mg/dL (60-115)
[2022-11-22] MEDS: QUEtiapine Fumarate 300 MG TABLET 600 MG PO (20:07)
[2022-11-22] MEDS: Atorvastatin Calcium 40 MG TABLET PO (20:07)
[2022-11-23 03:32] VITALS: BP 129/78; PULSE 89; RESP 18; TEMP 36.3; O2SAT 98
[2022-11-23 05:11] VITALS: BMI 30.4
[2022-11-23] MEDS: Heparin Sodium,Porcine 5,000 UNIT/ML VIAL 5000 UNIT SUBCUT ×2 (06:04→13:45)
[2022-11-23 06:42] LABS: Hematocrit 36.1 % (42.0-52.0); Hemoglobin 12.6 g/dl (14.0-18.0); Mean Corpuscular HGB Conc 34.9 g/dl (31.0-36.0); Mean Corpuscular Hemoglobin 29.3 pg (27.0-33.0); Mean Platelet Volume 10.4 fL (9.4-12.4); Platelet Count 164 X10*3/uL (160-400); Red Cell Distribution Width 12.7 % (11.0-16.0); White Blood Count 4.8 X10*3/uL (4.8-10.8)
[2022-11-23 07:18] LABS: Blood Urea Nitrogen 10 mg/dL (9-16); Calcium 8.5 mg/dL (8.4-10.2); Creatinine Clr Calc Pharmacy 99.6; Estimated Glomerular Filt Rate > 60; Glucose Fasting 302 mg/dL (60-99)
[2022-11-23 07:29] LABS: Anion Gap 15 (12-20); Carbon Dioxide 20 mmol/L (22-29); Chloride 107 mmol/L (96-108); Potassium 3.2 mmol/L (3.3-5.1); Sodium 139 mmol/L (135-145)
[2022-11-23 07:43] VITALS: BP 135/87; PULSE 86; RESP 18; TEMP 36.6; O2SAT 98
[2022-11-23] MEDS: Sertraline HCL 50 MG TABLET 150 MG PO (07:54)
[2022-11-23] MEDS: Insulin Lispro 100 UNIT/ML 3 ML VIAL SUBCUT ×4 (07:54→11:22)
[2022-11-23 08:06] LABS: Glucose, Whole Blood 296 mg/dL (60-115)
[2022-11-23] MEDS: Potassium Chloride ER 20 MEQ TAB.ER.PRT 40 MEQ PO (08:58)
--- NOTE | 2022-11-23 10:43 | MHC.CLN ---
F/U VISITED WITH PATIENT F/U TO NEW DX DM. HAD EDUCATION INFORMATION IN ROOM. NO FURTHER QUESTIONS. RECOMMEND OUTPATIENT NUTRITION/DIABETES EDUCATION. SCHEDULED FOR DISCHARGE TO HOME TODAY.
--- NOTE | 2022-11-23 10:44 | P.DS_ITS ---
DS: Providers Provider Date of Service: 11/23/22 Date of admission: 11/21/22 12:50 Primary care physician: Mamadou Ricketts MD DS: Diagnosis Discharge Diagnosis (1) DKA (diabetic ketoacidosis): Status: Acute DS: Summary Hospital Course Hospital Course: from initial hpi: Chief Complaint: ? Diabetic ketoacidosis ?42-year-old gentleman with underlying history of obesity, hyperlipidemia, and anxiety admitted on 11/21/2022 with slowly worsening lethargy, malaise, polyur ia/polydipsia.? On ER evaluation patient with laboratory findings of diabetic ketoacidosis started on insulin drip and IV fluids and admitted to intensive care unit. hospital course: patient was admitted to ICU for DKA and new diagnosis of DM2 complicated by TYESHA. he was treated with iv insulin and hydratoin. anion gap closed, he tolerated solid po diet, sugars became better controlled, patient given diabetes education. will be discharged on 15 units lantus at bedtime, 5 units lispro premeal plus correction, metformin. for obesity wieght loss recommended. for hld was conitnued on statin, for mood disorder was continued on zoloft and seroquel, patient feeling better and will be discharged home. Time Spent with Patient Time attestation: Total time managing care of this patient today ____ minutes. Discharge coordination time: Greater than 30 minutes Quality: Safe Use of Opioids Does Pt have an Active Cancer Diagnosis on the Problem List?: No Quality: Stroke Does the patient have a stroke diagnosis?: No Physical Exam Vital Signs: Vital Signs: Last Vital Signs Temp 97.9 F 11/23/22 07:43 Pulse 86 11/23/22 07:43 Resp 18 11/23/22 07:43 BP 135/87 11/23/22 07:43 Pulse Ox 98 11/23/22 07:43 O2 Del Method Room Air 11/23/22 07:43 BMI result Body Mass Index 30.4 General: AO X 3, no acute distress Resp: CTA bilateral, no accessory muscles used CVS: S1,S2,RRR GI: soft, non tender, non distended Neuro: motor grossly intact, alert Psych: appropriate affect, appropriate insight DS: Data Data Completed and Pending Labs on day of discharge: Laboratory Results - last 24 hr 11/22/22 11/22/22 11/22/22 09:56 11:26 16:18 WBC RBC Hgb Hct MCV MCH MCHC RDW Plt Count MPV Absolute Nucleated RBC Nucleated RBC % (auto) Sodium 134 L Potassium 4.1 Chloride 108 Carbon Dioxide 15 L Anion Gap 15 BUN 10 Creatinine 1.26 Estim Creat Clear Calc 77.2 Estimated GFR > 60 POC Glucose 412 H* 263 H Random Glucose 463 H* Fasting Glucose Calcium 8.1 L 11/22/22 11/23/22 11/23/22 19:44 05:47 05:47 WBC 4.8 RBC 4.30 L Hgb 12.6 L Hct 36.1 L MCV 84.0 MCH 29.3 MCHC 34.9 RDW 12.7 Plt Count 164 MPV 10.4 Absolute Nucleated RBC 0.000 Nucleated RBC % (auto) 0.0 Sodium 139 Potassium 3.2 L D Chloride 107 Carbon Dioxide 20 L Anion Gap 15 BUN 10 Creatinine 1.10 Estim Creat Clear Calc 99.6 Estimated GFR > 60 POC Glucose 313 H Random Glucose Fasting Glucose 302 H Calcium 8.5 11/23/22 07:45 WBC RBC Hgb Hct MCV MCH MCHC RDW Plt Count MPV Absolute Nucleated RBC Nucleated RBC % (auto) Sodium Potassium Chloride Carbon Dioxide Anion Gap BUN Creatinine Estim Creat Clear Calc Estimated GFR POC Glucose 296 H Random Glucose Fasting Glucose Calcium Discharge Plan Discharge Anticipated Discharge Date/Time: 11/23/22 10:43 Patient Disposition: Home, Self-Care Discharge Diagnosis: DKA Referrals: Mamadou Ricketts MD [Primary Care Provider] - 1 Week Discharge Medications: New (DME) FreeStyle Lite Strips Strip Qty: 100 0RF Rx Instructions: Test four times a day or as directed. (DME) blood-glucose meter [FreeStyle Lite Meter] Kit Qty: 1 0RF Rx Instructions: As Directed (DME) pen needle, diabetic 32 gauge x 1/4 needle Qty: 100 0RF Rx Instructions: Use four times a day or as directed. (DME) lancets [FreeStyle Lancets] 28 gauge misc Qty: 100 0RF Rx Instructions: Test four times a day or as directed. insulin glargine [Lantus Solostar U-100 Insulin] 100 unit/mL (3 mL) insulin pen 15 unit SUBCUT BEDTIME Qty: 15 0RF metformin 1,000 mg tablet 1,000 mg PO BIDWMEAL Qty: 60 0RF alcohol swabs Pads, Medicated 1 pad TOPICAL QIDACHS Qty: 100 0RF Rx Instructions: Use four times a day or as directed. insulin lispro [Humalog KwikPen Insulin] 100 unit/mL insulin pen 5 unit SUBCUT QIDACHS Qty: 15 0RF Rx Instructions: 5 units plus correction below Blood Sugar: <150 - 0 units 151-200 - 2 units 201-250 - 4 units 251-300 - 6 units 301-350 - 8 units >350 - 10 units No Action albuterol sulfate 90 mcg/actuation HFA aerosol inhaler 2 puff INHALATION Q4H PRN (Reason: Shortness Of Breath) quetiapine 300 mg tablet 600 mg PO BEDTIME nicotine 14 mg/24 hr patch 24 hour 1 patch transdermal Q24H Qty: 28 3RF atorvastatin 40 mg tablet 40 mg PO BEDTIME Qty: 90 8RF sertraline 100 mg tablet 150 mg PO DAILY Qty: 90 3RF clonazepam 1 mg tablet 1 mg PO BID PRN (Reason: depression) Qty: 90 5RF Discharge Orders: Discharge Order (Routine); Ordered 11/23/22 Ordered By: Doc Jeter Diet: Diabetic diet Activity on Discharge: As tolerated Stand Alone Forms: Patient Portal Discharge page Care Plan Goals: manage DM Health Concerns: DM - new diagnosis Plan of Treatment: follow closely with PCP, start insulin and metformin as prescribed, keep log of blood sugars. Assessment: see above Patient Instructions: Hypoglycemia in a Person with Diabetes (GEN), Type 2 Diabetes in Adults: New Diagnosis (GEN), What to Do if Your Blood Sugar is Low (GEN)
--- NOTE | 2022-11-23 11:09 | MHC.CM.PN ---
PT WILL DC HOME TODAY WITH NEW [facility]NA FOR DM TEACHING BETO SPOKE WITH LESLIE FROM [facility] [phone] WHO HAS AUTHORIZED SN VISITS REFERRAL SENT TO [facility] TO SEE IF THEY ARE ABLE TO PROVIDE SOC TOMORROW BETO SPOKE WITH PT WHO REPORTS IF HE IS UNABLE TO GET SN SERVICES, HE WILL SPEAK WITH HIS PHARMACIST AND USE THE INTERNET PTS NURSE WILL ALSO PROVIDE MUCH EDUCATION POSSIBLE PRIOR TO DC
--- NOTE | 2022-11-23 11:09 | W.MHC.F2F ---
Service Date Service Date: 11/23/22 Encounter Date of encounter: 11/23/22 Reasons for Services Signs and symptoms assessed: new dm Reason for retirement: diabetic teaching Homebound: Leaving the home is medically contraindicated at this time without the asist of a device and/or another person due th the listed conditions above and below. Reason homebound: other (labile sugars) Certification: Based on the above findings, I certify that this patient is confined to the home and needs intermittent retirement care, physical therapy and/or speech therapy, or continues to need occupational therapy. The patient is under my care, and I have initiated the establishment of the plan of care. The patient will be followed by a physician who will periodically review the plan of care. Time Spent With Patient Time: Total time managing care of this patient today ____ minutes.
[2022-11-23 11:19] LABS: Glucose, Whole Blood 304 mg/dL (60-115)
== END 2022-11-23 15:59 | disposition home health service (06) | DRG 638 ==
LOC: HO.ED 12:00 → HO.EDOVER 12:55 → HO.ICU 14:21 → HO.S3 11-22 09:42
PROVIDERS: Physician Assistant; Physician Assistant Medical; Admitting Provider Internal Medicine Pulmonary Disease; Emergency Provider Emergency Medicine Emergency Medical Services; PCP Internal Medicine; Visit Provider Internal Medicine
DX: E11.10 Type 2 diabetes mellitus with ketoacidosis without coma (principal); N17.9 Acute kidney failure, unspecified; F41.9 Anxiety disorder, unspecified; E78.5 Hyperlipidemia, unspecified; F17.210 Nicotine dependence, cigarettes, uncomplicated; E66.9 Obesity, unspecified; Z71.6 Tobacco abuse counseling; Z71.3 Dietary counseling and surveillance; Z71.89 Other specified counseling; Z68.30 Body mass index [BMI] 30.0-30.9, adult; Z79.899 Other long term (current) drug therapy
CPT/HCPCS: 36415; 71045; 71046; 80048; 80076; 80307; 81001; 82009; 82803; 82947; 83036; 83735; 83880; 84100; 84443; 84484; 85025; 85027; 93005; 99285; J1643; J2405

== ENCOUNTER 2023-01-17 08:16 | Outpatient (AMB) | payer OTHER, SELFPAY ==
--- NOTE | 2023-01-17 08:32 | A.OFFVIS_ITS ---
Intake VS Expanded 01/17/23 08:47 01/29/23 09:39 Height 5 ft 10 in 5 ft 10 in Weight 216 lb 7.903 oz 216 lb BMI 31.1 31.0 Intake Visit Reasons: Dm2 Allergies No Known Allergies Allergy (Verified 11/29/22 11:21) HPI Nutrition Presentation Details Pt presents for medical nutrition therapy for type 2 diabetes. Patient was referred by CALOS Cramer Patient was Dx with type 2 diabetes on 10/2022 Patient reports he is currently taking the following: Lantus 15 units/day and metformin 1000 mg at night time. Patient denies having blood glucose less than 70. He also reports having an new primary care provider: At [facility] in [facility] CALOS Patient reports feeling well. He reports having good glucose control with blood sugars ranging 100s to 120s pre meals or after meals. Patient denies having low blood glucose Patient reports having ovarian foods Reports having 3 meals per day and following healthy plate method as he was educated at the hospital when he was initially diagnosed Alcohol: Smoking: Denies Physical activity: Reports participating in daily life activities Food frequency fruits per day: 2-3 reports either including fruits as part of the meal or as a snack Vegetables: Reports having 2-3 servings in 1 of his meals at least 5 times a week Starches: 3-4 servings at mealtime, sometimes may have more depending on hunger Protein foods: Reports including a variety of protein foods (poultry, fish, eggs, beef) and including above 5-7 oz in each meal Dairy: Reports choosing low-fat milk and also alternating with almond milk and non Dairy alternatives RJS-Ttjhasq-Rb.Jeor Equation Height 5 ft 10 in Weight 216 lb Resting Metabolic Rate 1878.55 Calculated Activity Level Mild Activity Calories Needed to Maintain Weight 2583.01 Diagnosis Nutrition problem #1 food nutri know defi (Related to complex carbohydrates) As related to (etiology) #1 lack of nutrit education Monitoring/Goals Nutrition problem monitoring level of knowledge/skill (Regarding complex carbohydrates) Nutrition goal/outcome list 3 high fiber foods Outcome progress verbalized understanding Learning/Education Readiness to learn good Stages of change action Educational materials provided Yes (Meal planning including complex carbohydrates) Most Recent Diabetes Results: Cholesterol 159 mg/dL 05/03/22 HDL Cholesterol 35 mg/dL 05/03/22 Triglycerides 309 mg/dL 05/03/22 Creatinine 1.10 mg/dL (0.5-1.4) 11/23/22 Blood Urea Nitrogen 10 mg/dL (9-16) 11/23/22 Sodium 139 mmol/L (135-145) 11/23/22 Potassium 3.2 mmol/L (3.3-5.1) L 11/23/22 Chloride 107 mmol/L (96-108) 11/23/22 Carbon Dioxide 20 mmol/L (22-29) L 11/23/22 Calcium 8.5 mg/dL (8.4-10.2) 11/23/22 AST 33 U/L (5-37) 11/21/22 ALT 79 U/L (0-40) H 11/21/22 Total Protein 7.8 g/dL (6.5-8.0) 11/21/22 Albumin 4.8 g/dL (3.5-5.0) 11/21/22 [facility] Medical History Hyperlipidemia Surgical History History of tonsillectomy Family History Father No problems noted. Mother No problems noted. Social History (Updated 10/23/22 @ 11:22 by CALOS Crowder) Household Members: Spouse and Children [facility] Do you presently have visiting nurse or other home services: No Alcohol intake: current Alcohol intake frequency: does not drink Patient Tobacco Use Status: Current someday Tobacco user Tobacco use type: Cigarette Cigarettes Per Day: 10 e-Cigarette/Vaping Use: Former Use Second Hand Smoke Exposure: No Substance Use Type: Marijuana service: No Current occupational status: disabled Current occupational exposures/hazards: No Cognitive needs: No Hearing needs: No Vision needs: No Assessment & Plan Assessment & Plan (1) Newly diagnosed diabetes: Code(s): E11.9 - Type 2 diabetes mellitus without complications Plan: Weight: 98 kg Est kcal needs as per MSJ: 2500 (40% carb, 30% protein/fat) Est fluid needs as per 25-30 ml/d: 2500 Est prot per day as per 1 g/kg bw: 98 Recommend fiber intake : 8-10 g per day and gradually increase to 25-28 g per day for women and 35-38 g for men or as tolerated Recommend sodium intake per day : less than 2000 mg Educated patient on: ( R = reviewed V = verbalizes understanding N/R = needs review N/A = not applicable * Food sources of carbohydrate, adequate serving sizes and its role in various health conditions: R V * Differences between complex carbohydrates a simple carbohydrates, role of fiber in diet: R * Differences between types of fats and role in diet (mono on saturated fat fatty acids, saturated fatty acids, trans fats): R * Food sources of sodium in salt and healthy modifications for heart health in kidney health: NR * Vitamins and minerals: R * Healthy plate method concept: R V * Physical activity: Benefits a precaution: R V * Hypoglycemia protocol (rule of 15): R * Dietary prevention of Hyperglycemia: R Medications: Discontinued quetiapine 300 mg PO BID 60 tabs 0RF Patient Instructions: Choose complex carbs (fiber rich foods) in your diet by following healthy plate method follow rule of 15 if developing low blood sugar and notify your primary care provider of any low blood glucose reactions for further assessment Coding Level of Care Code Nutr Indiv Intake (78717) Diagnoses Newly diagnosed diabetes E11.9 Time Spent (min) 30
[2023-01-17 08:47] VITALS: BMI 31.1
[2023-01-29 09:39] VITALS: BMI 31.0
== END 2023-01-17 09:05 | disposition home or self-care (01) ==
PROVIDERS: PCP Internal Medicine; Visit Provider Dietitian, Registered
DX: E11.9 Type 2 diabetes mellitus without complications (principal)

== ENCOUNTER → 2023-01-17 08:16 | Outpatient (BNVA) | payer OTHER, SELFPAY | PROVIDERS: PCP Internal Medicine; Visit Provider Dietitian, Registered | DX: E11.9 Type 2 diabetes mellitus without complications (principal) | CPT/HCPCS: 97802 ==

== ENCOUNTER 2023-02-08 10:03 | Outpatient (REF) | payer OTHER, SELFPAY ==
[2023-02-08 10:17] LABS: MANUAL DIFF FLAG NO
[2023-02-08 10:29] LABS: Basophils Absolute Auto 0.1 X10*3/uL (0.0-0.2); Basophils Percent Auto 0.5 % (0-2); Eosinophils Absolute Auto 0.2 X10*3/uL (0.0-0.4); Eosinophils Percent Auto 1.5 % (0-4); Hematocrit 46.9 % (42.0-52.0); Hemoglobin 15.8 g/dl (14.0-18.0); Imm Gran Abs Auto 0.05 X10*3/uL (0.00-0.03); Imm Gran Pct Auto 0.4 % (0.0-0.4); Lymphocytes Absolute Auto 2.4 X10*3/uL (1.2-4.9); Mean Corpuscular HGB Conc 33.7 g/dl (31.0-36.0); Mean Corpuscular Hemoglobin 30.2 pg (27.0-33.0); Mean Corpuscular Volume 89.7 fL (80.0-98.0); Mean Platelet Volume 9.2 fL (9.4-12.4); Monocytes Absolute Auto 0.7 X10*3/uL (0.1-1.2); Monocytes Percent Auto 5.4 % (2-11); Neutrophils Absolute Auto 9.1 x10*3/uL (2.0-8.3); Neutrophils Percent Auto 73.2 % (45-73); Platelet Count 295 X10*3/uL (160-400); Red Blood Count 5.23 X10*6/uL (4.60-5.80); Red Cell Distribution Width 12.5 % (11.0-16.0); White Blood Count 12.4 X10*3/uL (4.8-10.8)
[2023-02-08 10:42] LABS: Estimated Average Glucose 157 mg/dL; Hemoglobin A1c % 7.1 %
[2023-02-08 11:17] LABS: Alanine Aminotransferase 33 U/L (0-40); Albumin Level 4.5 g/dL (3.5-5.0); Alkaline Phosphatase 83 U/L (39-117); Anion Gap 15 (12-20); Aspartate Amino Transferase 18 U/L (5-37); Bilirubin Total 0.3 mg/dL (0.0-1.0); Blood Urea Nitrogen 17 mg/dL (9-16); Calcium 10.6 mg/dL (8.4-10.2); Carbon Dioxide 26 mmol/L (22-29); Chloride 105 mmol/L (96-108); Cholesterol 250 mg/dL; Estimated Glomerular Filt Rate > 60; Glucose Random 120 mg/dL (60-115); HDL Cholesterol 40 mg/dL; LDL Cholesterol Calculated 163 mg/dl; Potassium 4.5 mmol/L (3.3-5.1); Sodium 141 mmol/L (135-145); Total Protein 7.6 g/dL (6.5-8.0); Triglycerides 236 mg/dL
[2023-02-08 12:23] LABS: Amphetamine Screen Urine Not Detected (Not Detect); Barbiturates, Urine Not Detected (Not Detect); Benzodiazepines Screen Urine Not Detected (Not Detect); Cannabinoid Screen Urine POSITIVE (Not Detect); Cocaine Screen Urine Not Detected (Not Detect); Fentanyl, urine Not Detected (Not Detect); Opiate Screen Urine Not Detected (Not Detect); Phencyclidine Screen Urine Not Detected (Not Detect)
[2023-02-08 12:26] LABS: Creatinine Urine 78.12 mg/dL; Microalbumin Urine < 5.0 mg/L
== END 2023-02-08 10:04 | disposition home or self-care (01) ==
LOC: HO.LAB 10:03
PROVIDERS: PCP Nurse Practitioner; Visit Provider Nurse Practitioner
DX: Z13.220 Encounter for screening for lipoid disorders (principal); E11.9 Type 2 diabetes mellitus without complications; Z79.899 Other long term (current) drug therapy; Z79.4 Long term (current) use of insulin
CPT/HCPCS: 80053; 80061; 80307; 82043; 83036; 85025

== ENCOUNTER 2023-04-18 08:53 | Outpatient (AMB) | payer OTHER, SELFPAY ==
--- NOTE | 2023-04-18 08:59 | A.OFFVIS_ITS ---
Intake VS Expanded 04/18/23 08:59 Weight 223 lb 8.78 oz Intake Visit Reasons: T2DM Allergies No Known Allergies Allergy (Verified 11/29/22 11:21) HPI Nutrition Presentation Details Pt present for MNT for T2DM Pt reports he is no longer on insulin. He is now only on metformin 1000 mg twice /day pt reports working on diet modifications, choosing higher fiber foods, lean protein. Pt reports contemplating increasing on physical activity. Most Recent Diabetes Results: Microalb/Creat Ratio TNP 02/08/23 Cholesterol 250 mg/dL 02/08/23 HDL Cholesterol 40 mg/dL 02/08/23 Triglycerides 236 mg/dL 02/08/23 Creatinine 1.08 mg/dL (0.5-1.4) 02/08/23 Blood Urea Nitrogen 17 mg/dL (9-16) H 02/08/23 Sodium 141 mmol/L (135-145) 02/08/23 Potassium 4.5 mmol/L (3.3-5.1) 02/08/23 Chloride 105 mmol/L (96-108) 02/08/23 Carbon Dioxide 26 mmol/L (22-29) 02/08/23 Calcium 10.6 mg/dL (8.4-10.2) H 02/08/23 AST 18 U/L (5-37) 02/08/23 ALT 33 U/L (0-40) 02/08/23 Total Protein 7.6 g/dL (6.5-8.0) 02/08/23 Albumin 4.5 g/dL (3.5-5.0) 02/08/23 [facility] Medical History Hyperlipidemia Surgical History History of tonsillectomy Family History Father No problems noted. Mother No problems noted. Social History (Updated 10/23/22 @ 11:22 by CALOS Crowder) Household Members: Spouse and Children Housing: Condominium Do you presently have visiting nurse or other home services: No Alcohol intake: current Alcohol intake frequency: does not drink Patient Tobacco Use Status: Current someday Tobacco user Tobacco use type: Cigarette Cigarettes Per Day: 10 e-Cigarette/Vaping Use: Former Use Second Hand Smoke Exposure: No Substance Use Type: Marijuana service: No Current occupational status: disabled Current occupational exposures/hazards: No Cognitive needs: No Hearing needs: No Vision needs: No Assessment & Plan Assessment & Plan (1) Newly diagnosed diabetes: Code(s): E11.9 - Type 2 diabetes mellitus without complications Plan: Weight: 98 kg ( inc wt to 101 kg 03/2023) Est kcal needs as per MSJ: 2500 (40% carb, 30% protein/fat) Est fluid needs as per 25-30 ml/d: 2500 Est prot per day as per 1 g/kg bw: 98 Recommend fiber intake : 8-10 g per day and gradually increase to 25-28 g per day for women and 35-38 g for men or as tolerated Recommend sodium intake per day : less than 2000 mg Educated patient on: ( R = reviewed V = verbalizes understanding N/R = needs review N/A = not applicable * Food sources of carbohydrate, adequate serving sizes and its role in various health conditions: R V * Differences between complex carbohydrates a simple carbohydrates, role of fibe r in diet: R * Differences between types of fats and role in diet (mono on saturated fat fatty acids, saturated fatty acids, trans fats): R * Food sources of sodium in salt and healthy modifications for heart health in kidney health: NR * Vitamins and minerals: R * Healthy plate method concept: R V * Physical activity: Benefits a precaution: R V * Hypoglycemia protocol (rule of 15): R * Dietary prevention of Hyperglycemia: R Patient Instructions: Choose foods low in saturated fast (- include baked fish at least twice a week, replacing fritters and red meats) Choose a afruit twice a day replacing pastries Engage in physical activity as able, goal walking 150 minutes per week Coding Level of Care Code Nutr Indiv Subseq (40932) Diagnoses Newly diagnosed diabetes E11.9 Time Spent (min) 30
== END 2023-04-18 09:38 | disposition home or self-care (01) ==
PROVIDERS: PCP Internal Medicine; Visit Provider Dietitian, Registered
DX: E11.9 Type 2 diabetes mellitus without complications (principal)

== ENCOUNTER → 2023-04-18 08:53 | Outpatient (BNVA) | payer OTHER, SELFPAY | PROVIDERS: PCP Internal Medicine; Visit Provider Dietitian, Registered | DX: E11.9 Type 2 diabetes mellitus without complications (principal); Z79.84 Long term (current) use of oral hypoglycemic drugs | CPT/HCPCS: 97803 ==

== ENCOUNTER 2023-10-09 09:49 | Outpatient (REF) | payer OTHER, SELFPAY ==
[2023-10-09 10:03] LABS: MANUAL DIFF FLAG NO
[2023-10-09 10:55] LABS: Basophils Percent Auto 0.4 % (0-2); Eosinophils Absolute Auto 0.3 X10*3/uL (0.0-0.4); Eosinophils Percent Auto 3.4 % (0-4); Hematocrit 47.2 % (42.0-52.0); Hemoglobin 16.2 g/dl (14.0-18.0); Imm Gran Abs Auto 0.05 X10*3/uL (0.00-0.03); Imm Gran Pct Auto 0.6 % (0.0-0.4); Lymphocytes Absolute Auto 2.7 X10*3/uL (1.2-4.9); Lymphocytes Percent Auto 33.8 % (20-40); Mean Corpuscular HGB Conc 34.3 g/dl (31.0-36.0); Mean Corpuscular Hemoglobin 29.5 pg (27.0-33.0); Monocytes Absolute Auto 0.5 X10*3/uL (0.1-1.2); Monocytes Percent Auto 5.8 % (2-11); Neutrophils Absolute Auto 4.4 x10*3/uL (2.0-8.3); Platelet Count 318 X10*3/uL (160-400); Red Blood Count 5.49 X10*6/uL (4.60-5.80); Red Cell Distribution Width 11.9 % (11.0-16.0); White Blood Count 7.9 X10*3/uL (4.8-10.8)
[2023-10-09 11:55] LABS: Alanine Aminotransferase 29 U/L (0-40); Albumin Level 4.8 g/dL (3.5-5.0); Alkaline Phosphatase 89 U/L (39-117); Anion Gap 17 (12-20); Aspartate Amino Transferase 18 U/L (5-37); Bilirubin Total 0.3 mg/dL (0.0-1.0); Blood Urea Nitrogen 18 mg/dL (9-16); Calcium 10.4 mg/dL (8.4-10.2); Carbon Dioxide 23 mmol/L (22-29); Chloride 105 mmol/L (96-108); Estimated Glomerular Filt Rate > 60; Glucose Random 107 mg/dL (60-115); Potassium 4.2 mmol/L (3.3-5.1); Sodium 141 mmol/L (135-145); Total Protein 7.9 g/dL (6.5-8.0)
== END 2023-10-09 09:50 | disposition home or self-care (01) ==
LOC: HO.LAB 09:49
PROVIDERS: PCP Nurse Practitioner; Visit Provider Nurse Practitioner
DX: R10.32 Left lower quadrant pain (principal)
CPT/HCPCS: 36415; 80053; 85025

== ENCOUNTER 2023-10-10 11:56 | Outpatient (REF) | payer OTHER, SELFPAY ==
--- NOTE | ~2023-10-10 | CT_ITS ---
EXAMINATION: CT ABDOMEN AND PELVIS WITH CONTRAST CLINICAL INFORMATION: Left lower quadrant abdominal pain COMPARISON: Ultrasound examination of the abdomen on 08/07/2007 TECHNIQUE: Multidetector volumetric images were obtained from the superior aspect of the liver through the pubic symphysis following administration 85 mL of Omnipaque 350 intravenous contrast. Sagittal and coronal reformatted images were obtained on the technologist's workstation. Oral contrast: No This CT examination was performed using dose optimization techniques as appropriate, variously including the following: *Automated exposure control *Adjustment of mA and/or kV according to patient size (this includes techniques or standardized protocols for targeted exams where dose is matched to indication/reason for exam; i.e. extremities or head) *Use of iterative reconstruction technique DLP: 517.65 mGy-cm FINDINGS: LUNG BASES: Bilateral lung bases are clear. LIVER: No focal lesion is seen in the liver. GALLBLADDER AND BILIARY TREE: Gallbladder appears unremarkable without calcified stones. Common bile duct is not dilated. SPLEEN: The spleen is normal in size without focal lesion. PANCREAS: The pancreas appears unremarkable. ADRENAL GLANDS: Adrenal glands are normal in size without focal lesion bilaterally. KIDNEYS: Bilateral kidneys are normal in size without focal lesion. BOWELS: There is normal filling of large and small bowel loops with oral contrast all the way down to the descending colon. Several diverticula are seen in the descending colon without inflammatory changes. RETROPERITONEUM: No abnormally enlarged retroperitoneal lymph nodes, mass or hematoma could be seen. BLOOD VESSELS: Abdominal aorta is normal in size with scattered atherosclerotic calcifications and smoothly patent. ABDOMINAL WALL: Small umbilical hernia containing mesenteric fat is seen. PERITONEUM: There was no ascites. There were no abdominal peritoneal inflammatory changes seen. No free peritoneal air was seen. No abnormally enlarged mesenteric lymph nodes are found. BONES: No fracture or dislocation. No focal bone lesion diagnostic of metastatic disease could be seen in the lumbar region. EXAMINATION: CT pelvis. FINDINGS: URINARY BLADDER: Urinary bladder fills normally with urine. BOWELS: There is normal filling of large and small bowel loops with oral contrast all the way down to the rectum. Normal contrast-filled appendix is seen projecting posterior and inferior to the cecum. GENITAL ORGANS: Seminal vesicles are unremarkable. Prostate gland is normal. LYMPH NODES: No abnormally enlarged iliac or inguinal lymph nodes are seen. PERITONEUM: No inflammatory changes, ascites or free peritoneal air are found in the pelvis. BONES: No fracture or dislocation. No focal bone lesion diagnostic of metastatic disease could be seen in the pelvis. CT/CT abdomen pelvis w IV con IMPRESSION: 1. Descending colon diverticulosis without inflammation. 2. No intestinal or colonic obstruction or abdominal inflammation or pneumoperitoneum is seen. 3. No abdominal mass lesion or lymphadenopathy is found. 4. No pelvic mass lesion, abscess or lymphadenopathy is seen.
[2023-10-10] MEDS: iohexoL 350 MG/ML 100 ML INFUS..BTL 85 ML IV (15:33)
[2023-10-10] MEDS: Barium Sulfate Oral (Mocha) 450 ML ORAL.SUSP 900 ML PO (15:34)
== END 2023-10-10 11:57 | disposition home or self-care (01) ==
LOC: HO.CT 11:56
PROVIDERS: PCP Nurse Practitioner; Visit Provider Nurse Practitioner
DX: R10.32 Left lower quadrant pain (principal)
CPT/HCPCS: 74177; Q9967

== ENCOUNTER 2023-12-09 09:56 | Outpatient (AMB) | payer OTHER, SELFPAY ==
[2023-12-09 10:11] VITALS: BMI 32.0
--- NOTE | 2023-12-09 10:11 | MHC.AMNUTRGE ---
VS Expanded 12/09/23 10:11 Height 5 ft 10 in Weight 223 lb BMI 32.0 Intake Visit Reasons: T2DM/CONFIRMED Allergies No Known Allergies Allergy (Verified 11/29/22 11:21) Nutrition Presentation Details: Pt presents for 6 m MNT f/u for T2DM. Pt reports following up with new doctor, Katelynn Fountain in [place], [place] Pt reports he is working on eating a variety of foods, not monitoring blood sugars food frequency Including fish: no fruits: 1-2 x/day vegetables : included in frozen meals starches: pastas, soups including whole grain cereals: no ETOH:no smoking: denies BS Monitoring Most Recent Diabetes Results: Microalb/Creat Ratio TNP 02/08/23 Cholesterol 250 mg/dL 02/08/23 HDL Cholesterol 40 mg/dL 02/08/23 Triglycerides 236 mg/dL 02/08/23 Creatinine 1.12 mg/dL (0.5-1.4) 10/09/23 Blood Urea Nitrogen 18 mg/dL (9-16) H 10/09/23 Sodium 141 mmol/L (135-145) 10/09/23 Potassium 4.2 mmol/L (3.3-5.1) 10/09/23 Chloride 105 mmol/L (96-108) 10/09/23 Carbon Dioxide 23 mmol/L (22-29) 10/09/23 Calcium 10.4 mg/dL (8.4-10.2) H 10/09/23 AST 18 U/L (5-37) 10/09/23 ALT 29 U/L (0-40) 10/09/23 Total Protein 7.9 g/dL (6.5-8.0) 10/09/23 Albumin 4.8 g/dL (3.5-5.0) 10/09/23 [facility] Medical History Hyperlipidemia Surgical History History of tonsillectomy Family History Father No problems noted. Mother No problems noted. Social History (Updated 10/23/22 @ 11:22 by CALOS Crowder) Household Members: Spouse and Children [facility]: [facility] Do you presently have visiting nurse or other home services: No Alcohol intake: current Alcohol intake frequency: does not drink Patient Tobacco Use Status: Current someday Tobacco user Tobacco use type: Cigarette Cigarettes Per Day: 10 e-Cigarette/Vaping Use: Former Use Second Hand Smoke Exposure: No Substance Use Type: Marijuana service: No Current occupational status: disabled Current occupational exposures/hazards: No Cognitive needs: No Hearing needs: No Vision needs: No Assessment & Plan Assessment & Plan (1) Newly diagnosed diabetes: Code(s): E11.9 - Type 2 diabetes mellitus without complications Category: Medical Plan: Weight: 101 kg Est kcal needs as per MSJ: 2500 (40% carb, 30% protein/fat) Est fluid needs as per 25-30 ml/d: 2500 Est prot per day as per 1 g/kg bw: 98 Recommend fiber intake : 8-10 g per day and gradually increase to 25-28 g per day for women and 35-38 g for men or as tolerated Recommend sodium intake per day : less than 2000 mg Educated patient on: ( R = reviewed V = verbalizes understanding N/R = needs review N/A = not applicable Food sources of carbohydrate, adequate serving sizes and its role in various health conditions: R V Differences between complex carbohydrates a simple carbohydrates, role of fiber in diet: R Differences between types of fats and role in diet (mono on saturated fat fatty acids, saturated fatty acids, trans fats): R Food sources of sodium in salt and healthy modifications for heart health in kidney health: NR Vitamins and minerals: R Healthy plate method concept: R V Physical activity: Benefits a precaution: R V Hypoglycemia protocol (rule of 15): R Dietary prevention of Hyperglycemia: R omega 3 fatty acids Patient Instructions: Include omega 3 fatty acids in your diet by having fish at least twice a week, choose nuts as snacks Add fiber to your diet by : adding canned vegetables to the soup, choose carrots as snack, keep hydrated by having water with meals/snack , fruit/herb flavored water following healthy plate method Coding Level of Care Code Nutr Indiv Subseq (32410) Diagnoses Newly diagnosed diabetes E11.9 Time Spent (min) 20
== END 2023-12-09 10:19 | disposition home or self-care (01) ==
PROVIDERS: PCP Nurse Practitioner; Visit Provider Dietitian, Registered
DX: E11.9 Type 2 diabetes mellitus without complications (principal)

== ENCOUNTER → 2023-12-09 09:56 | Outpatient (BNVA) | payer OTHER, SELFPAY | PROVIDERS: PCP Nurse Practitioner; Visit Provider Dietitian, Registered | DX: E11.9 Type 2 diabetes mellitus without complications (principal); Z71.3 Dietary counseling and surveillance | CPT/HCPCS: 97803 ==

== ENCOUNTER 2024-04-10 10:57 | Outpatient (REF) | payer OTHER, SELFPAY ==
[2024-04-10 11:25] LABS: MANUAL DIFF FLAG NO
[2024-04-10 11:43] LABS: Basophils Percent Auto 0.5 % (0-2); Eosinophils Absolute Auto 0.5 X10*3/uL (0.0-0.4); Hematocrit 45.1 % (42.0-52.0); Hemoglobin 15.4 g/dl (14.0-18.0); Imm Gran Abs Auto 0.03 X10*3/uL (0.00-0.03); Imm Gran Pct Auto 0.4 % (0.0-0.4); Lymphocytes Absolute Auto 2.7 X10*3/uL (1.2-4.9); Lymphocytes Percent Auto 32.4 % (20-40); Mean Corpuscular HGB Conc 34.1 g/dl (31.0-36.0); Mean Corpuscular Hemoglobin 29.3 pg (27.0-33.0); Mean Corpuscular Volume 85.9 fL (80.0-98.0); Mean Platelet Volume 8.8 fL (9.4-12.4); Monocytes Absolute Auto 0.5 X10*3/uL (0.1-1.2); Neutrophils Absolute Auto 4.6 x10*3/uL (2.0-8.3); Neutrophils Percent Auto 54.7 % (45-73); Platelet Count 290 X10*3/uL (160-400); Red Blood Count 5.25 X10*6/uL (4.60-5.80); Red Cell Distribution Width 12.1 % (11.0-16.0); White Blood Count 8.3 X10*3/uL (4.8-10.8)
[2024-04-10 12:09] LABS: Creatinine Urine 99.82 mg/dL; Microalbumin Urine < 5.0 mg/L
[2024-04-10 12:23] LABS: Alanine Aminotransferase 26 U/L (0-40); Albumin Level 4.3 g/dL (3.5-5.0); Alkaline Phosphatase 86 U/L (39-117); Anion Gap 10 (12-20); Aspartate Amino Transferase 17 U/L (5-37); Bilirubin Total 0.3 mg/dL (0.0-1.0); Blood Urea Nitrogen 17 mg/dL (9-16); Calcium 9.7 mg/dL (8.4-10.2); Carbon Dioxide 26 mmol/L (22-29); Chloride 108 mmol/L (96-108); Cholesterol 132 mg/dL (<200); Estimated Glomerular Filt Rate > 60; Glucose Random 121 mg/dL (60-115); HDL Cholesterol 29 mg/dL (>40); LDL Cholesterol Calculated 79 mg/dL (<100); Potassium 4.2 mmol/L (3.3-5.1); Sodium 140 mmol/L (135-145); Total Protein 7.2 g/dL (6.5-8.0); Triglycerides 121 mg/dL (<150)
[2024-04-10 12:33] LABS: Vitamin D 25-OH Total 17.2 ng/mL (>30)
== END 2024-04-10 10:58 | disposition home or self-care (01) ==
LOC: HO.LAB 10:57
PROVIDERS: PCP Nurse Practitioner; Visit Provider Nurse Practitioner
DX: E11.9 Type 2 diabetes mellitus without complications (principal); E83.52 Hypercalcemia
CPT/HCPCS: 80053; 80061; 82043; 82306; 82570; 85025

== ENCOUNTER 2024-12-09 09:48 | Outpatient (AMB) | payer OTHER, SELFPAY ==
--- NOTE | 2024-12-09 09:49 | MHC.OFFVIS ---
Vital Signs 12/09/24 09:51 Height 6 ft 1 in Weight 227 lb 1.218 oz BMI 30.0 BP 108/79 Blood Pressure Location Lt brachial Position Sitting Pulse 84 Intake Visit Reasons: LLQ pain, CT w/ Diverticulosis Intake Note: Aaron presents in the office as a new patient for LLQ pains. CT Scan showed Diverticulosis. CC: He states that the pains have been happening the past few years. States he takes dicyclomine when his cramps act up. Constipation and diarrhea with constant discomfort in the abdomen. 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 Reports chronic L sided pain x almost 10 years assoc with urge to defecate. Pain comes and goes, triggered mostly by food. Has watery BMs almost 2-3 times a day. Pain better after defecation. No blood. No night time sx. Has been on dicyclomine with little help. NO fam hx of IBD or CRC. Smokes 1 PPD, and marijuana. Does not drink etOH. 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 Had recent blood work through PCP - celiac serology neg. Cr 1.2. Abnormal LFTs noted, with steatosis on contrasted CT scan. Also noted was diverticulosis. [facility] Medical History Hyperlipidemia Surgical History History of tonsillectomy Family History Father No problems noted. Mother No problems noted. Social History Household Members: Spouse and Children Housing: Condominium Do you presently have visiting nurse or other home services: No Alcohol intake: current Alcohol intake frequency: does not drink Patient Tobacco Use Status: Current someday Tobacco user Tobacco use type: Cigarette Cigarettes Per Day: 10 e-Cigarette/Vaping Use: Former Use Second Hand Smoke Exposure: No Substance Use Type: Marijuana service: No Current occupational status: disabled Current occupational exposures/hazards: No Cognitive needs: No Hearing needs: No Vision needs: No Review of Systems Const All systems reviewed & are unremarkable except as noted in HPI and below Physical Exam Vital Signs: Last Vital Signs Pulse 84 12/09/24 09:51 BP 108/79 12/09/24 09:51 BMI result Body Mass Index 30.0 No apparent distress Nonicteric Abdomen soft, nondistended Alert and oriented x3, normal gait Assessment & Plan Assessment & Plan (1) Irritable bowel syndrome with diarrhea: Code(s): K58.0 - Irritable bowel syndrome with diarrhea Category: Medical (2) Elevated LFTs: Code(s): R79.89 - Other specified abnormal findings of blood chemistry Category: Medical Plan Overall sx consistent with IBS-D. Long duration of sx without clinical worsening also in keeping with IBS. However pt would like to ensure no underlying IBD. Other ddx include malabsorption - celiac serology neg through PCP office. Hyperthyroidism, etc. He will also be miguelina for a colo. CMP being ordered to follow up on LFTs. Plan: - Labs as below - [place] to be booked. Golytely ordered and instructions reviewed with the pt. Follow up after colo. Orders: Orders Complete Blood Count no Diff Today R10.32 - Left lower quadrant pain TSH reflex Free T4 Today R10.32 - Left lower quadrant pain Calprotectin, Fecal Today R10.32 - Left lower quadrant pain Comprehensive Met. Panel Today R10.32 - Left lower quadrant pain Medications: New peg 3350-electrolytes 236-22.74-6.74 -5.86 gram (Golytely) as per split prep instructions, until fecal effluent is clear 240 mL PO Q10M 4,000 mL 0RF colonoscopy Coding Level of Care Code New Pt Level 4 (02178) Diagnoses Irritable bowel syndrome with diarrhea K58.0 Elevated LFTs R79.89
[2024-12-09 09:51] VITALS: BP 108/79; PULSE 84
--- OUTSIDE RECORDS SUMMARY | 2024-12-09 10:47 | XMS_ITS | Clinical Summary ---
Author Organization [employer] Address [address] [place] [address] Care Team Providers Care Paleologist Name Role Phone Wisam Vargas Unavailable Unavailable Katelynn Fountain [employer] DOCUMENT PREPARER Primary Care Provider [phone] Gayle Delacruz Unavailable Unavailable Allergies No known active allergies Medications Blood Glucose Monitoring Suppl (ONE TOUCH ULTRA 2) w/Device kit USE DIRECTED TO TEST BLOOD GLUCOSE FOUR TIMES DAILY 3 Active dicyclomine (Bentyl) 10 MG capsuleIndications :Abdominal cramps Take 1 capsule (10 mg) by mouth 3 times daily. 360 capsule 4 Active Lancets (OneTouch Delica Plus [id number]) miscIndications:Ty pe 2 diabetes mellitus without complication, without long-term current use of insulin (CMS/HCC) 1 Units by Other route Once per day. 100 each 3 4 Active Amorfix Life SciencesTouch Ultra test stripIndications:T ype 2 diabetes mellitus without complication, without long-term current use of insulin (CMS/HCC) 1 each by Other route Once per day. 100 each 3 4 Active triamcinolone (Kenalog) 0.1 % creamIndications:R rico and nonspecific skin eruption Apply topically if needed in the morning and at bedtime for rash. Apply to affected area 1-2 times daily as needed. 45 g 4 Active BD Pen Needle Mery 2nd Gen 32G X 4 MM miscIndications:Ty pe 2 diabetes mellitus without complication, without long-term current use of insulin (CMS/HCC) Use as instructed 100 each 3 4 Active Alcohol Swabs (Alcohol Prep) 70 % padsIndications:Ty pe 2 diabetes mellitus without complication, without long-term current use of insulin ([facility]) USE FOUR TIMES DAILY 200 each 3 4 Active atorvastatin (Lipitor) 20 MG tabletIndications: Hyperlipidemia, unspecified hyperlipidemia type Take 1 tablet (20 mg) by mouth Once per day. 90 tablet 3 5 026 Active cholecalciferol (Vitamin D-3) 50 MCG (2000 UT) tabletIndications: Vitamin D deficiency Take 1 tablet (50 mcg) by mouth Once per day. 90 tablet 3 5 Active clonazePAM (KlonoPIN) 1 MG tabletIndications: Anxiety Take 1 tablet (1 mg) by mouth if needed each day for anxiety. Can take up to 5 pills weekly. 20 tablet 2 5 025 Active QUEtiapine (SEROquel) 100 MG tabletIndications: Bipolar affective disorder, currently depressed, moderate ([facility]) Take 1 tablet (100 mg) by mouth at bedtime. 90 tablet 5 026 Active zolpidem (Ambien) 10 MG tabletIndications: Primary insomnia Take 1 tablet (10 mg) by mouth at bedtime. 28 tablet 2 5 025 Active Brexpiprazole (Rexulti) 2 MG tabletIndications: Persistent depressive disorder Take 1 tablet (2 mg) by mouth Once per day. 30 tablet 2 5 025 Active sertraline (Zoloft) 100 MG tabletIndications: Anxiety Take 2 tablets (200 mg) by mouth Once per day. 180 tablet 5 Active Dulaglutide (Trulicity) 0.75 MG/0.5ML solution auto-injectorIndic ations:Type 2 diabetes mellitus without complication, without long-term current use of insulin ([facility]) Inject 0.75 mg under the skin 1 (one) time per week. 2 mL 2 5 Active Active Problems Problem Noted Date Diagnosed Date Chronic mid back pain 10/30/2024 Persistent depressive disorder 08/07/2024 Vitamin D deficiency 04/24/2024 extermination inspector prescription benzodiazepine use 2022 Overview (06/13/2023): -Clonazepam Take 1 tablet (1 mg) by mouth if needed in the morning and at bedtime for anxiety. 06/07/23 Salivary drug screen negative benzo; patient w/ last clonazepam taken 06/05/23. Bipolar affective disorder, currently depressed, moderate 01/14/2023 Anxiety 01/14/2023 Type 2 diabetes mellitus wit hout complication, without long-term current use of insulin 12/14/2022 Hyperlipidemia 12/14/2022 Resolved Problems Problem Noted Date Diagnosed Date Resolved Date Eye pain, right 10/23/2023 01/10/2024 Assessment & Plan (10/23/2023 8:02 AM EDT): Pt has been having right eye pain for a couple of months now; he called earlier today to get an appt with Optometry but they were not open so he was given a medical appt. It is unknown why he was put on the medical schedule. Pt has been having a couple months of redness in the right eye, dryness, crusting, irritation, and sensitivity. He was last at Optometry a couple of months ago, before this started. He does state he has some blurry vision due to the irritation. States he does not understand why he needs to be seen by us. Has tried OTC eye drops (red eye relief) without any relief. He does not wear glasses or contacts. EOMs intact, PERRLA. No erythema noted. No tearing noted. Slight yellow/white discharge noted in the medial corner of the right eye. Left eye no concerns. Needs Optometry follow up. Discussed with pt that we will prescribe erythromycin ointment 4 times daily for redness/itching, use if needed. Discussed continued use of eye drops. Discussed to call back/obtain a follow up with Optometry. Currently has appt with Optometry in December; I discussed he will need to be sooner. Follow up as needed. Encounters Date Type Department Care Team Description 11/30/2024 4:00 PM EDT Office Visit [facility] OPTOMETRY [address] [place] [address] Elyse Olson, OD Glaucoma suspect of both eyes (Primary Dx) 11/26/2024 Telephone [facility] MEDICAL [address] [place] [address] [place], [place], [facility] stomach cramps, request new RX 11/02/2024 Orders Only [facility] Information Management [address] [place] [address] [place], [place], [facility] 10/30/2024 11:40 AM EDT Office Visit [address] [address] [place], [place], [facility] Type 2 diabetes mellitus without complication, without long-term current use of insulin (CMS/HCC) (Primary Dx); Hyperlipidemia, unspecified hyperlipidemia type; Chronic mid back pain; Bipolar affective disorder, currently depressed, moderate (CMS/HCC); Primary insomnia; senior living prescription benzodiazepine use; Health care maintenance 10/29/2024 Refill [facility] [address] [place] [address] [place], [place], [facility] Type 2 diabetes mellitus without complication, without long-term current use of insulin (CMS/HCC) 10/16/2024 11:20 AM EDT Office Visit [facility] [address] [place] [address] Emi Bartlett MD Anxiety; Bipolar affective disorder, currently depressed, moderate (CMS/HCC); Primary insomnia; Persistent depressive disorder 10/06/[address] [address] [place], [place], [facility] Med Refill 09/28/2024 Telephone [facility] [address] [place] [address] [place], [place], [employer] Results 09/24/2024 Telephone [facility] [address] [place] [address] Indigo Lockett RN 09/23/2024 Refill [facility] [address] [place] [address] [place], [place], [facility] Acute diarrhea 09/21/2024 Telephone [facility] [address] [place] [address] [place], [place], [employer] Labs Only 09/21/2024 Telephone [facility] [address] [place] [address] Emi Bartlett MD Med Refill 09/18/2024 Orders Only [address] [address] Emi Bartlett MD 09/17/2024 Refill [facility] [address] [place] [address] [facility] Katelynn [facility] Type 2 diabetes mellitus without complication, without long-term current use of insulin ([facility]); Vitamin D deficiency 09/16/[address] [address] [facility] request return to work letter 09/16/[address] [address] [facility] Vitamin D deficiency 09/14/[address] [address] [place], [place] [facility] unable to process URGENT order 09/11/2024 11:40 AM EDT Office Visit [address] [address] Emi Bartlett MD Acute diarrhea (Primary Dx); Left lower quadrant pain; Abnormal weight loss 09/09/[address] [address] [facility]atelynn [facility] request help booking appt from Last 3 Months Immunizations Immunization Administration Dates Next Due INFLUENZA INJECTABLE QUADRIV ALANT CCIIV4 MDCK Multi-dose vial 07/10/2019 Tdap 12/16/2015 Family History Medical History Relation Name Comments Diabetes Cousin Diabetes Maternal Grandmother Diabetes Mother's Sister Relation Name Status Comments Cousin Maternal Grandmother Mother's Sister Other Social History Tobacco Use Types Packs/Day Years Used Date Smoking Tobacco: Former Cigarettes 1 993 - 07/2022 Smokeless Tobacco: Current Tobacco Cessation:Ready to Q uit: Not Asked; Counseling Given: Not Answered Alcohol Use Standard Drinks/Week Comments Not Currently 0 (1 standard drink = 0.6 oz pur e alcohol) Alcohol Answer Date Recorded How often do you have a drink containing alcohol ? 0 10/30/2024 How many drinks containing a lcohol do you have on a typical day when you are drinking? 0 10/30/2024 How often do you have six or more drinks on one occasion? 0 10/30/2024 Depression Answer Date Recorded Patient Health Questionnaire-9 Score 9 06/07/2023 Patient Health Questionnaire-9 Score 9 06/07/2023 Last PHQ-9: Questionnaire Data Not on file 1 08/08/2022 Housing Stability Answer Date Recorded What is your housing situation today? Not on elodia e 01/10/[address] you li ve. Do you have problems with any of the following? None of the above 01/10/2024 Food Insecurity Answer Date Recorded Within the past 12 months, y ou worried that your food would run out before you got money to buy more: Never True 01/10/2024 Within the past 12 months,th e food you bought just didn't last and you didn't have enough money to get more: Never True 05/2024 Transportation Answer Date Recorded In the past 12 months, has l ack of transportation kept you from medical appts, meetings, work or from getting things needed for daily living? No 01/10/2024 Utilities Answer Date Recorded In the past 12 months, has t he electric, gas, oil or water company threatened to shut off services in your home? No 01/10/2024 Depression Answer Date Recorded Patient Health Questionnaire-2 Score 0 01/10/2024 Internet Access Answer Date Recorded Internet Access Q1 Yes 03/02/2024 Internet Access Q2 Not on file 03/02/2024 Sex and Gender Information Value Date Recorded Sex Assigned at Male 11/29/2022 2:45 PM EDT Legal Sex Male 2:42 PM EDT Gender Identity Male 11/29/2022 2:45 PM EDT Sexual Orientation Straight 11/29/2022 2: 45 PM EDT Last Filed Vital Signs Vital Sign Reading Time Taken Comments Blood Pressure 124/87 10/16/2024 11:24 AM EDT Pulse 95 10/16/2024 11:24 AM EDT Temperature 37.1 ??C (98.8 ??F) 10/30/2024 11:35 AM E DT Respiratory Rate 18 10/16/2024 11:24 AM EDT Oxygen Saturation 97% 10/16/2024 11:24 AM EDT Inhaled Oxygen Concentration - - Weight 104 kg (230 lb) 10/30/2024 11:35 AM EDT Height 185.4 cm (6' 1 ) 07/31/2024 10:57 AM EST Body Mass Index 30.34 07/31/2024 10:57 AM EST Plan of Treatment Upcoming Encounters Date Type Department Care Team (Late st Contact Info) Description 01/15/2025 11:20 AM EDT Office Visit [facility] MEDICAL [address] [place] [address] Emi Bartlett MD [address] [place] [address] 03/05/2025 12:00 PM EDT Office Visit [facility] MEDICAL [address] [place] [address] Katelnyn Fountain, [employer] DOCUMENT PREPARER [address] [place] [address] 04/26/2025 11:00 AM EDT Office Visit [facility] OPTOMETRY [address] [place] [address] Elyse Olson, OD [address] [place] [address] Health Maintenance Due Date Last Done Comments CT Colonography 1978 Colonoscopy 1978 Colorectal Cancer Screening 1978 FIT DNA/Cologuard 1978 FIT 1978 FOBT 1978 HIV Screening 1978 SDOH Screening 1978 Sigmoidoscopy 1978 Disability Screening 1978 Hepatitis C Screening 1996 Hepatitis B Vaccines (1 of 3 - 19+ 3-dose series) 1997 Pneumococcal Vaccine: Pediatrics (0 to 5 Years) and At-Risk Patients (6 to 49) Years) (1 of 2 - PCV) 1997 COVID-19 Vaccine (3 - season) 2024 12/22/2020, 12/01/2020 Depression Monitoring 07/12/2024 01/10/2024, 023 Influenza Vaccine (Season Ended) 2025 07/10/2019 Diabetes: Urine Protein Screening 04/10/2025 04/10/2024, 02/08/2023 Lipid Panel 04/10/2025 04/10/2024, 02/08/2023 Diabetes: Hemoglobin A1C 05/02/2025 025, 07/31/2024, 04/10/2024, Additional history exists Alcohol/Substance Use Screening 10/30/2025 10/30/2024 Diabetes: Foot Exam 10/30/2025 10/30/2024, 10/30/2024, 10/30/2024, Additional history exists Family Planning (PISQ) 10/30/2025 10/30/2024 Tobacco Screening 11/30/2025 11/30/2024 DTaP/Tdap/Td Vaccines (2 - Td or Tdap) 12/15/2025 12/16/2015 Eye Exam 11/30/2026 11/30/2024, 08/2024, 11/30/2024, Additional history exists Zoster Vaccines (1 of 2) 2028 RSV Patients and Patients Aged 60 years or older (1 - 1-dose 75+ series) 2053 HIB Vaccines Aged Out No longer eligi ble based on patient's age to complete this topic HPV Vaccines Aged Out No longer eligi ble based on patient's age to complete this topic Hepatitis A Vaccines Aged Out No long er eligible based on patient's age to complete this topic IPV Vaccines Aged Out No longer eligi ble based on patient's age to complete this topic Meningococcal B Vaccine Aged Out No l onger eligible based on patient's age to complete this topic Meningococcal Vaccine Aged Out No ger alice eligible based on patient's age to complete this topic RSV under 20 months Aged Out No longe r eligible based on patient's age to complete this topic Rotavirus Vaccines Aged Out No longer eligible based on patient's age to complete this topic Procedures Procedure Name Priority Date/Time Associated Diagnosis Comments AUTOMATED VISUAL FIELD, EXTENDED - OU - BOTH EYES Routine 11/30/2024 Glaucoma suspect of both eyes OCT, OPTIC NERVE - OU - BOTH EYES Routine 11/30/2024 Glaucoma suspect of both eyes POCT GLYCOSYLATED HEMOGLOBIN (HGB A1C) Routine 10/30/2024 1:17 PM EDT Type 2 diabetes mellitus without complication, without long-term current use of insulin ([facility]) CANNABINOIDS, MS, UR RFX (NON ORDERABLE) Routine 10/30/2024 12:00 AM EDT TOXASSURE?? FLEX 15, URINE Routine 10/30/2024 12:00 AM EDT senior living prescription benzodiazepine use CT ABD/PELVIS W/ IV + ORAL CONTRAST Routine 09/23/2024 8:[address] ABDOMEN PELVIS W CONTRAST Urgent 09/23/2024 Acute diarrhea Left lower quadrant pain Abnormal weight loss COMPREHENSIVE METABOLIC PANEL Routine 09/21/2024 2:27 PM EDT Health care maintenance RESULT (NON ORDERABLE) Routine 09/18/2024 10:22 AM EDT OVA AND PARASITES, CONC AND PERM SMEAR Routine 09/18/2024 10:22 AM EDT NOTE: (NON ORDERABLE) Routine 09/18/2024 10:16 AM EDT NON CELIAC GLUTEN SENS SCREEN (NON ORDERABLE) Routine 09/18/2024 10:16 AM EDT INFLAMMATORY BOWEL DISEASE SCREEN (NON ORDERABLE) Routine 09/18/2024 10:16 AM EDT SPECIMEN STATUS REPORT Routine 09/18/2024 10:16 AM EDT BASIC METABOLIC PANEL Routine 09/18/2024 10:16 AM EDT TSH W/REFLEX TO FT4 Routine 09/18/2024 1 0:16 AM EDT Acute diarrhea C-REACTIVE PROTEIN Routine 09/18/2024 10 :16 AM EDT Acute diarrhea SED RATE BY MODIFIED WESTERGREN Routine 09/18/2024 10:16 AM EDT Acute diarrhea BOWEL DISORDERS EVALUATION RULE-OUT CASCADE Routine 09/18/2024 10:16 AM EDT Acute diarrhea CBC Routine 09/18/2024 10:16 AM EDT Acute diarrhea ALBUMIN/CREATININE RATIO, TIMED URINE Routine 04/10/2024 Type 2 diabetes mellitus without complication, without long-term current use of insulin ([facility]) LIPID PANEL, STANDARD Routine 04/10/2024 Hyperlipidemia, unspecified hyperlipidemia type from Last 3 Months or Most Recently Relevant to Health Maintenance Results * OCT, Optic Nerve - OU - Both Eyes (11/30/2024) Impressions Elyse Olson, OD - 11/30/2024 Right eye (OD): borderline RNFL sectors ST/IT; GCC defect sup; stable on change analysis Left eye (OS): Thin RNFL inf quadrant and borderline RNFL pillo and sup; GCC defects sup and inf; stable on change analysis Elyse Olson OD OPHTH TOMOGRAPHY Final Result * Automated Visual Field, Extended - OU - Both Eyes (11/30/2024) Impressions Elyse Olson, OD - 11/30/2024 Right eye (OD): reliable; tr defect essentially clean field; improved from previous Left eye (OS): reliable; tr defect essentially clean field; improved from previous Elyse Olson OD OPHTH VISUAL FIELD Final Result * (ABNORMAL) POCT glycosylated hemoglobin (Hgb A1c) (10/30/2024 1:17 PM EDT) Pathologist [facility] Hemoglobin A1C 6.1(A) 4.0 - 6.0 % Blood Capillary blood specimen / Unknown 10/30/2024 1:17 PM EDT [facility] POINT OF CARE TEST ENTER/ EDIT ORDERABLES Final Result * Cannabinoids, MS, Ur RFX (10/30/2024 12:00 AM EDT) Pathologist [facility] CANNABINOIDS, Urine +POSITIVE + [facility] 1 Carboxy-THC, Urine 344 ng/mg creat [facility] Comment: This test is not intended to distinguish between the metabolites of bdibc-4-kckvpdiepbnvdhxadckk, the predominant form of THC in most herbal or marijuana-based products, and xwcum-6-uqmwpsvbvevmruyvlcsw, a psychoactive compound generally synthesized from other cannabinoids. 10/30/2024 10/30/2024 Comment:Urine, Random Releas e Narrative [facility] 1 - 11/03/2024 4:05 PM EDT Performed at: ??01 - [employer] [address] [place] [address] ??[id number] [employer] Operator: Jodi Palacio [facility], Phone: ??[phone] Specimen Comment: [facility]oxAssure, [facility] FLEX or MAT drug testing: Specimen Comment: -Technical component - Data analysis performed at Specimen Comment: [address] [place] [id number]. [facility] HISTORICAL/NON ORDERABLE LABS Final Result [facility] * ToxAssure?? Flex 15, Urine (10/30/2024 12:00 AM EDT) [facility] Summary Report FINAL [facility] 1 Comment: Cannabinoids, MS, Ur RFX [employer] Flex 15, Ur Test ? Result ? Flag ? Units Drug Present ??7-aminoclonazepam ?147 ? ng/mg creat ?? 7-aminoclonazepam is an expected metabolite of clonazepam. Source ?? of clonazepam is a scheduled prescription medication. ??Carboxy-THC ?344 ? ng/mg creat ?? Carboxy-THC is a metabolite of tetrahydrocannabinol (THC). Source ?? of THC is most commonly herbal marijuana or marijuana-based ?? products, but THC is also present in a scheduled prescription ?? medication. Trace amounts of THC can be present in hemp and ?? cannabidiol (CBD) products. This test is not intended to ?? distinguish between upsfj-3-qlkpedbxehkojuhwcikf, the predominant ?? form of THC in most herbal or marijuana-based products, and ?? znqzh-8-yhpfqpbykavlhqhsfbfq. Test ?Result ?Flag ?? Units ?Ref Range ??Creatinine ?43 ? mg/dL ?>=20 Declared Medications: Medication list was not provided. For clinical consultation, please call . Creatinine, Urine 43 >=20 mg/dL [facility] Comment:REFERENCE RANGE: Ref Range>=20 Amphetamines IA, Urine Negative CUTOFF:3 00 ng/mL [facility] Benzodiazepines, Urine +POSITIVE+ [facility] Diazepam, Urine Not Detected ng/mg creat [facility] 1 Desmethyldiazepam, Urine Not Detected ng/mg creat [facility] 1 Oxazepam, Urine Not Detected ng/mg creat [facility] 1 Temazepam, Urine Not Detected ng/mg creat [facility] 1 Comment: Expected metabolism of benzodiazepine class drugs: Parent Drug ? Detected Metabolites ? Diazepam: ? Desmethyldiazepam, Temazepam, Oxazepam Chlordiazepoxide: Desmethyldiazepam, Oxazepam Clorazepate: ?Desmethyldiazepam, Oxazepam Halazepam: ?Desmethyldiazepam, Oxazepam Temazepam: ?Oxazepam Oxazepam: ? None Alprazolam, Urine Not Detected ng/mg creat [facility] 1 Alpha-hydroxyalprazolam , Urine Not Detected ng/mg creat [facility] 1 Desalkylflurazepam, Urine Not Detected ng/mg creat [facility] 1 Lorazepam, Urine Not Detected ng/mg creat [facility] 1 Alpha-hydroxytriazolam, Urine Not Detected ng/mg creat [facility] 1 Clonazepam, Urine Not Detected ng/mg creat [facility] 1 7-aminoclonazepam, Urine 147 ng/mg creat [facility] 1 Midazolam, Urine Not Detected ng/mg creat [facility] 1 Alpha-hydroxymidazolam, Urine Not Detected ng/mg creat [facility] 1 Flunitrazepam, Urine Not Detected ng/mg creat [facility] 1 Desmethylflunitrazepam, Urine Not Detected ng/mg creat [facility] 1 Cocaine Metabolite IA, Urine Negative CUTOFF:1 50 ng/mL [facility] 1 ETHYL ALCOHOL Enzymatic, Urine Negative CUTOFF:0 .020 g/dL [facility] 1 CANNABINOIDS IA, Urine CUTOFF:2 0 ng/mL [facility] Comment:Further testing ana laura cated 6-Acetylmorphine IA, Urine Negative CUTOFF:1 0 ng/mL [facility] 1 OPIATE CLASS IA, Urine Negative CUTOFF:1 00 ng/mL [facility] 1 OXYCODONE CLASS IA, Urine Negative CUTOFF:1 00 ng/mL [facility] 1 Methadone IA, Urine Negative CUTOFF:1 00 ng/mL [facility] 1 METHADONE MTB IA, Urine Negative CUTOFF:1 00 ng/mL [facility] 1 BUPRENORPHINE, Urine Negative [facility] 1 Buprenorphine, Urine Not Detected ng/mg creat [facility] 1 Norbuprenorphine, Urine Not Detected ng/mg creat [facility] 1 FENTANYL & ANALOGUES, Urine Negative [facility] 1 Fentanyl, Urine Not Detected ng/mg creat [facility] 1 Norfentanyl, Urine Not Detected ng/mg creat [facility] 1 TAPENTADOL IA, Urine Negative CUTOFF:2 00 ng/mL [facility] 1 Tramadol IA, Urine Negative CUTOFF:2 00 ng/mL [facility] 1 Barbiturates IA, Urine Negative CUTOFF:2 00 ng/mL [facility] 1 Phencyclidine (PCP) IA, urine Negative CUTOFF:2 5 ng/mL [facility] 1 Urine (Urine, Random) 10/30/2024 10/30/2024 Comment:Urine, Random Releas e Narrative [facility] 1 - 11/03/2024 4:05 PM EDT Test(s) [id number] IA was developed and its performance characteristics determined by [facility]. It has not been cleared or approved by the Food and Drug Administration. Performed at: ??01 - [employer] [address] [place] [address] ??[id number] [employer] Operator: Jodi Palacio [facility], Phone: ??[phone] Specimen Comment: ToxAssure, T[employer]ure FLEX or MAT drug testing: Specimen Comment: -Technical component - Data analysis performed at Specimen Comment: [address], [place] [address]. [facility] LAB URINE ORDERABLES Karen l Result [facility] 1 * CT ABD/PELVIS W/ IV + ORAL CONTRAST (09/23/2024 8:08 AM EDT) Anatomical Region Laterality Modality Body, Pelvis, Abdomen Computed T omography 09/23/2024 8:08 AM EDT Narrative 09/23/2024 1:[address] Abd/Pelvis W/ IV + Oral Contrast Reason: R19.7 R10.32 LLQ PAIN R63.4 ABNORMAL WEIGHT LOSS; Clinical Question(s): Other: TECHNIQUE: Spiral CT through the abdomen and pelvis with IV contrast formatted in 3 planes. 100 cc of Isovue 300 was administered intravenously. This study was performed with oral contrast. Weight-based protocol using automatic tube modulation was used to optimize exposure parameters. CTDIvol Body: 19.97 mGy, DLP Body: 1127 mGy*cm. COMPARISON: No relevant FINDINGS: The heart is normal in size. There is no pericardial effusion. The visualized lung bases are unremarkable. The liver is diffusely decreased in attenuation, consistent with steatosis. No masses are seen. The gallbladder, spleen, pancreas, and adrenal glands are unremarkable. Symmetric renal contrast enhancement is demonstrated bilaterally. There are no cysts or masses. There is no hydronephrosis. The bladder is distended and unremarkable. The stomach, small bowel, and appendix are unremarkable. Colonic diverticula are present without wall thickening or mesenteric stranding to suggest the presence of diverticulitis. There is no bowel obstruction. There is no free air, free fluid, or lymphadenopathy. The osseous structures are unremarkable. IMPRESSION: Unremarkable examination. WSN: [id number] Ordering Physician: Emi Bartlett Dictated By: ?Marisol Coto MD Dictated Date/Time: ?09/23/24 1:05 pm Reviewed By: ?Marisol Coto MD Signed By: ? Marisol Coto MD Signed Date/Time: ? 09/23/24 1:05 pm Transcribed By: ? CSB Transcribed Date/Time: ?09/23/24 12:59 pm Procedure Note Donotuseinterpreter, Image - 09/23/2024 CT Abd/Pelvis W/ IV + Oral Contrast Reason: R19.7 R10.32 LLQ PAIN R63.4 ABNORMAL WEIGHT LOSS; ClinicalQuestion(s): Other: TECHNIQUE: Spiral CT through the abdomen and pelvis with IV contrastformatted in 3 planes. 100 cc of Isovue 300 was administered intravenously. Thisstudy was performed with oral contrast. Weight-based protocol using automatic tube modulation was used to optimize exposure parameters. CTDIvol Body: 19.97mGy, DLP Body: 1127 mGy*cm. COMPARISON: No relevant FINDINGS: The heart is normal in size. There is no pericardial effusion. Thevisualized lung bases are unremarkable. The liver is diffusely decreased in attenuation, consistent withsteatosis. No masses are seen. The gallbladder, spleen, pancreas, and adrenal glands are unremarkable. Symmetric renal contrast enhancement is demonstrated bilaterally. Thereare no cysts or masses. There is no hydronephrosis. The bladder is distendedand unremarkable. The stomach, small bowel, and appendix are unremarkable. Colonicdiverticula are present without wall thickening or mesenteric stranding to suggest thepresence of diverticulitis. There is no bowel obstruction. There is no free air,free fluid, or lymphadenopathy. The osseous structures are unremarkable. IMPRESSION: Unremarkable examination. WSN: [id number] Ordering Physician: Emi Bartlett Dictated By: Marisol Coto MD Dictated Date/Time: 09/23/24 1:05 pm Reviewed By: Marisol Coto MD Signed By: Marisol Coto MD Signed Date/Time: 09/23/24 1:05 pm Transcribed By: GARIMA Transcribed Date/Time: 09/23/24 12:59 pm Emi Bartlett MD [facility] [place]EDURES Final Result * CT Abdomen Pelvis w/ Contrast (09/23/2024) Anatomical Region Laterality Modality Body, Pelvis, Abdomen Computed T omography Emi Bartlett MD [facility] [place]EDURES Final Result * (ABNORMAL) Comprehensive metabolic panel (09/21/2024 2:27 PM EDT) Glucose 102(H) 70 - 99 mg/dL [facility] 1 Urea Nitrogen (BUN) 17 6 - 24 mg/dL [facility] 1 Creatinine, Serum 1.20 0.76 - 1.27 mg/dL [facility] 1 eGFR 76 >59 mL/min/1.7 3 [facility] 1 BUN/Creatinine Ratio 14 9 - 20 [facility] 1 Sodium 139 134 - 144 mmol/L [facility] 1 Potassium 4.3 3.5 - 5.2 mmol/L [facility] 1 Chloride 98 96 - 106 mmol/L [facility] 1 Anion Gap 19.0(H) 10.0 - 18.0 mmol/L [facility] 1 Carbon Dioxide 22 20 - 29 mmol/L [facility] 1 Calcium 10.9(H) 8.7 - 10.2 mg/dL [facility] 1 Comment:Verified by repeat analysis Protein, Total 7.7 6.0 - 8.5 g/dL [facility] 1 Albumin 5.2(H) 4.1 - 5.1 g/dL [facility] 1 Globulin 2.5 1.5 - 4.5 g/dL [facility] 1 Bilirubin, Total 0.2 0.0 - 1.2 mg/dL [facility] 1 Alkaline Phosphatase 83 44 - 121 IU/L [facility] 1 AST 35 0 - 40 IU/L [facility] 1 ALT 49(H) 0 - 44 IU/L [facility] 1 Blood Venous blood specimen / Unknown 09/21/2024 2:27 PM EDT 09/21/2024 Narrative [facility] 1 - 09/22/2024 2:05 PM EDT Performed at: ??01 - [facility] ??[id number] [employer] Operator: Desirae Driscoll MD, Phone: ??[phone] Charisma Chen MICROFILMING DOCUMENT PREPARER LAB BLOOD ORDERABLES Karen l Result Performing Organization Address [facility] Co de Phone Number [facility] * Result (09/18/2024 10:22 AM EDT) Result 1 [facility] 1 Comment: No ova, cysts, or parasites seen. One negative specimen does not rule out the possibility of a parasitic infection. 09/18/2024 10:2 2 AM EDT 09/18/2024 Narrative [facility] 1 - 09/23/2024 2:05 PM EDT Performed at: ??01 - [facility] [address] ??[id number] [employer] Operator: Desirae Driscoll MD, Phone: ??[phone] us Emi Bartlett MD HISTORICAL/NON ORDERABLE LABS Final Result Performing Organization Address [facility]/ZIP Co de Phone Number [facility] 1 * Ova and Parasites,??Concentrate and Permanent Smear (09/18/2024 10:22 AM EDT) Ova + Parasite Exam Final report [facility] Comment: These results were obtained using wet preparation(s) and trichrome stained smear. This test does not include testing for Cryptosporidium parvum, Cyclospora, or Microsporidia. 09/18/2024 10:2 2 AM EDT 09/18/2024 Comment:ST Narrative [facility] 1 - 09/23/2024 2:05 PM EDT Performed at: ??01 - [facility] [address] ??[id number] [employer] Operator: Desirae Driscoll MD, Phone: ??[phone] Emi Bartlett MD LAB MICROBIOLOGY - GENERAL ORD ERABLES Final Result Performing Organization Address [facility] Co de Phone Number [facility] * Note: (09/18/2024 10:16 AM EDT) Note: [facility] 1 Comment: Suggestive of irritable bowel syndrome (IBS). ??Careful evaluation of the patient's history, physical examination, and application of Magee III diagnostic criteria may help to rule in or rule out the diagnosis of IBS. ??Subsequent testing for Fecal Calprotectin (682636) may be recommended. ??If IBD is strongly suspected, subsequent testing with the Crohn's Disease Prognostic Profile (735918) that includes anti- glycan antibodies AMCA, ALCA, ACCA, and Hellen may aid in differential diagnosis. 09/18/2024 10:1 6 AM EDT 09/18/2024 Narrative [facility] 1 - 09/29/2024 12:05 PM EDT Performed at: ??01 - [facility] [address] ??[id number] [employer] Operator: Cody Curtis MD, Phone: ??[phone] Emi Bartlett MD HISTORICAL/NON ORDERABLE LABS Final Result Performing Organization Address [facility] Co de Phone Number [facility] * Non celiac Gluten Sens Screen (09/18/2024 10:16 AM EDT) Antigliadin IgG (karuk) 5 0 - 19 units [facility] 1 Comment: ? Negative ? 0 - 19 ? Weak Positive ? 20 - 30 ? Moderate to Strong Positive ?? >30 09/18/2024 10:1 6 AM EDT 09/18/2024 Narrative [facility] 1 - 09/29/2024 12:05 PM EDT Performed at: ??01 - [facility] [address] ??[id number] [employer] Operator: Cody Curtis MD, Phone: ??[phone] us Emi Bartlett MD HISTORICAL/NON ORDERABLE LABS Final Result Performing Organization Address City/State/[facility] Co de Phone Number [facility] 1 * Inflammatory Bowel Disease Screen (09/18/2024 10:16 AM EDT) Saccharomyces cerevisiae, IgG <20.0 0.0 - 24.9 Units [facility] 1 Comment: ?Negative ? <20.0 ?Equivocal ??20.1 - 24.9 ?Positive ? >or= 25.0 Atypical pANCA Negative Negative [facility] 1 Note: [place] continues [facility] 1 09/18/2024 10:1 6 AM EDT 09/18/2024 Narrative [facility] 1 - 09/29/2024 12:05 PM EDT Performed at: ??01 - [facility] [address] ??[id number] [employer] Operator: Cody Curtis MD, Phone: ??[phone] us Emi Bartlett MD HISTORICAL/NON ORDERABLE LABS Final Result [facility] 1 * Bowel Disorders Evaluation Rule-out [place] [[id number]] (09/18/2024 10:16 AM EDT) t-Transglutaminase tTG IgA 2 0 - 3 U/mL [facility] 1 Comment: ?Negative ?0 - ??3 ?Weak Positive ?? 4 - 10 ?Positive ? >10 Tissue Transglutaminase (tTG) has been identified as the endomysial antigen. ??Studies have demonstr- ated that endomysial IgA antibodies have over 99% specificity for gluten sensitive enteropathy. Deamidated Gliadin Abs, IgG 1 0 - 19 units [facility] 1 Comment: ? Negative ? 0 - 19 ? Weak Positive ? 20 - 30 ? Moderate to Strong Positive ?? >30 Information: [place] continues [facility] 1 Blood Venous blood specimen / Unknown 09/18/2024 10:16 AM EDT 09/18/2024 Narrative [facility] 1 - 09/29/2024 12:05 PM EDT Performed at: ??01 - [facility] [address] ??[id number] [employer] Operator: Cody Curtis MD, Phone: ??[phone] Emi Bartlett MD LAB BLOOD ORDERABLES Final Res ult Performing Organization Address City/[facility]/ZIP Co de Phone Number [facility] * Specimen Status Report (09/18/2024 10:16 AM EDT) Specimen Status Report [facility] 1 Comment: Written Authorization Written Authorization Written Authorization Received. Authorization received from MARY [facility]اقي [facility] 09-24-2024 Logged by Kristie Miller 09/18/2024 10:1 6 AM EDT 09/18/2024 Narrative [facility] 1 - 09/24/2024 4:05 PM EDT Performed at: ??01 - [facility] [address] ??[id number] [employer] Operator: Desirae Driscoll MD, Phone: ??[phone] Emi Bartlett MD HISTORICAL/NON ORDERABLE LABS Final Result Performing Organization Address [facility] de Phone Number [facility] 1 * TSH with Reflex to Free T4 [[id number]] (09/18/2024 10:16 AM EDT) TSH 1.630 0.450 - 4.500 uIU/mL [facility] 1 Blood Venous blood specimen / Unknown 09/18/2024 10:16 AM EDT 09/18/2024 Narrative [facility] 1 - 09/19/2024 6:05 AM EDT Performed at: ??01 - [facility] [address] ??[id number] [employer] Operator: Desirae Driscoll MD, Phone: ??[phone] us Emi Bartlett MD LAB BLOOD ORDERABLES Final Res ult [facility] 1 * Sed Rate by Modified Westergren (09/18/2024 10:16 AM EDT) Sed Rate By Modified Olesyaren 3 0 - 15 mm/hr [facility] 1 Blood Venous blood specimen / Unknown 09/18/2024 10:16 AM EDT 09/18/2024 Narrative [facility] 1 - 09/19/2024 6:05 AM EDT Performed at: ??01 - [facility] [address] ??[id number] [employer] Operator: Desirae Driscoll MD, Phone: ??[phone] Emi Bartlett MD LAB BLOOD ORDERABLES Final Res ult Performing Organization Address City/[facility]/ZIP Co de Phone Number [facility] 1 * CBC (09/18/2024 10:16 AM EDT) White Blood Cell Count 9.1 3.4 - 10.8 x10E3/uL [facility] 1 Red Blood Cell Count 5.21 4.14 - 5.80 x10E6/uL [facility] 1 Hemoglobin 15.8 13.0 - 17.7 g/dL [facility] 1 Hematocrit 45.7 37.5 - 51.0 % [facility] 1 MCV 88 79 - 97 fL [facility] 1 MCH 30.3 26.6 - 33.0 pg [facility] 1 MCHC 34.6 31.5 - 35.7 g/dL [facility] 1 RDW 13.0 11.6 - 15.4 % [facility] 1 Platelet Count 283 150 - 450 x10E3/uL [facility] 1 Blood Venous blood specimen / Unknown 09/18/2024 10:16 AM EDT 09/18/2024 Narrative [facility] 1 - 09/19/2024 12:05 AM EDT Performed at: ??01 - [facility] [address] ??[id number] [employer] Operator: Desirae Driscoll MD, Phone: ??[phone] us Emi Bartlett MD LAB BLOOD ORDERABLES Final Res ult Performing Organization Address [facility]/ZIP Co de Phone Number [facility] 1 * C-reactive Protein [[id number]] (09/18/2024 10:16 AM EDT) C-Reactive Protein 1 0 - 10 mg/L [facility] 1 Blood Venous blood specimen / Unknown 09/18/2024 10:16 AM EDT 09/18/2024 Narrative [facility] 1 - 09/19/2024 8:06 AM EDT Performed at: ??01 - [facility] [address] ??[id number] [employer] Operator: Desirae Driscoll MD, Phone: ??[phone] Emi Bartlett MD LAB BLOOD ORDERABLES Final Res ult Performing Organization Address [facility] Co de Phone Number [facility] 1 * (ABNORMAL) Basic Metabolic Panel (09/18/2024 10:16 AM EDT) Glucose 117(H) 70 - 99 mg/dL [facility] 1 Urea Nitrogen (BUN) 16 6 - 24 mg/dL [facility] 1 Creatinine, Serum 1.19 0.76 - 1.27 mg/dL [facility] 1 eGFR 76 >59 mL/min/1.7 3 [facility] 1 BUN/Creatinine Ratio 13 9 - 20 [facility] 1 Sodium 142 134 - 144 mmol/L [facility] 1 Potassium 4.6 3.5 - 5.2 mmol/L [facility] 1 Chloride 105 96 - 106 mmol/L [facility] 1 Carbon Dioxide 16(L) 20 - 29 mmol/L [facility] 1 Calcium 9.5 8.7 - 10.2 mg/dL [facility] 1 09/18/2024 10:1 6 AM EDT 09/18/2024 Narrative [facility] 1 - 09/23/2024 6:05 AM EDT Performed at: ??01 - [facility] [place] [place] ??[id number] [employer] Operator: Desirae Driscoll MD, Phone: ??[phone] Result [facility] Emi Bartlett MD LAB BLOOD ORDERABLES Final Res ult Performing Organization Address [facility] Co de Phone Number [facility] 1 * Microalbumin / creatinine, urine ratio (04/10/2024) Urine (Urine, Random) [facility] LAB URINE ORDERABLES Karen l Result Performing Organization Address [facility]/ZIP Co de Phone Number EXTERNAL LAB * Lipid Panel, Standard (04/10/2024) Blood Venous blood specimen / Unknown [facility] LAB BLOOD ORDERABLES Karen l Result Performing Organization Address [facility] de Phone Number EXTERNAL LAB from Last 3 Months or Most Recently Relevant to Health Maintenance Insurance SABRINA JAMES [id number] [facility] ONE CARE < 65 Care Teams Paleologist Relationship Specialty Start Date End Date Katelynn Fountain, MICROFILMING DOCUMENT PREPARER [address] [place] [address] PCP - General Family Medicine 12/05/22 Wisam Vargas Community Health Worker Case Management 11/29/22 Gayle Delacruz Health Navigator 04/23/24
== END 2024-12-09 11:50 | disposition home or self-care (01) ==
LOC: HO.HGI 09:49
PROVIDERS: PCP Nurse Practitioner; Visit Provider Internal Medicine
DX: K58.0 Irritable bowel syndrome with diarrhea (principal); R79.89 Other specified abnormal findings of blood chemistry
CPT/HCPCS: 99204

== ENCOUNTER 2024-12-09 09:48 | Outpatient (REF) | payer OTHER, SELFPAY ==
[2024-12-09 11:50] LABS: Hematocrit 45.7 % (42.0-52.0); Hemoglobin 15.5 g/dl (14.0-18.0); Mean Corpuscular HGB Conc 33.9 g/dl (31.0-36.0); Mean Corpuscular Hemoglobin 29.3 pg (27.0-33.0); Mean Corpuscular Volume 86.4 fL (80.0-98.0); Mean Platelet Volume 9.2 fL (9.4-12.4); Platelet Count 287 X10*3/uL (160-400); Red Blood Count 5.29 X10*6/uL (4.60-5.80); Red Cell Distribution Width 12.2 % (11.0-16.0); White Blood Count 12.3 X10*3/uL (4.8-10.8)
[2024-12-09 12:32] LABS: Alanine Aminotransferase 33 U/L (0-40); Albumin Level 4.7 g/dL (3.5-5.0); Alkaline Phosphatase 85 U/L (39-117); Anion Gap 10 (12-20); Aspartate Amino Transferase 23 U/L (5-37); Bilirubin Total 0.3 mg/dL (0.0-1.0); Blood Urea Nitrogen 15 mg/dL (9-16); Calcium 9.9 mg/dL (8.4-10.2); Carbon Dioxide 25 mmol/L (22-29); Chloride 106 mmol/L (96-108); Estimated Glomerular Filt Rate > 60; Glucose Random 110 mg/dL (60-115); Potassium 4.4 mmol/L (3.3-5.1); Sodium 137 mmol/L (135-145); Total Protein 7.1 g/dL (6.5-8.0)
[2024-12-09 12:52] LABS: TSH reflex Free T4 0.87 uIU/mL (0.32-4.0)
== END 2024-12-09 09:49 | disposition home or self-care (01) ==
LOC: HO.LAB 09:48
PROVIDERS: PCP Nurse Practitioner; Visit Provider Internal Medicine
DX: R10.32 Left lower quadrant pain (principal); K58.0 Irritable bowel syndrome with diarrhea; K57.30 Diverticulosis of large intestine without perforation or abscess without bleeding
CPT/HCPCS: 36415; 80053; 84443; 85027; 99202

== ENCOUNTER 2025-01-04 14:31 | Outpatient (REF) | payer OTHER, SELFPAY ==
--- OUTSIDE RECORDS SUMMARY | 2025-01-06 15:03 | XMS_ITS | Clinical Summary ---
Author Organization [employer] Address [address] [place] [address] 7[address] [place] [address] Care Team Providers Care Waistband Setter Name Role Phone Milan Vargassravanthi Unavailable Unavailable Katelynn Fountain RADIOTELEPHONE OPERATOR Primary Care Provider [phone] Gayle Delacruz Unavailable Unavailable Allergies No known active allergies Medications Blood Glucose Monitoring Suppl (ONE TOUCH ULTRA 2) w/Device kit USE DIRECTED TO TEST BLOOD GLUCOSE FOUR TIMES DAILY 023 Active Lancets (OneTouch Delica Plus [id number]) miscIndications:T ype 2 diabetes mellitus without complication, without long-term current use of insulin (CMS/HCC) 1 Units by Other route Once per day. 100 each 3 024 Active OneTouch Ultra test stripIndications: Type 2 diabetes mellitus without complication, without long-term current use of insulin (CMS/HCC) 1 each by Other route Once per day. 100 each 3 024 Active triamcinolone (Kenalog) 0.1 % creamIndications: Rash and nonspecific skin eruption Apply topically if needed in the morning and at bedtime for rash. Apply to affected area 1-2 times daily as needed. 45 g 024 Active BD Pen Needle Mery 2nd Gen 32G X 4 MM miscIndications:T ype 2 diabetes mellitus without complication, without long-term current use of insulin (CMS/HCC) Use as instructed 100 each 3 024 Active Alcohol Swabs (Alcohol Prep) 70 % padsIndications:T ype 2 diabetes mellitus without complication, without long-term current use of insulin (CMS/HCC) USE FOUR TIMES DAILY 200 each 3 024 Active atorvastatin (Lipitor) 20 MG tabletIndications :Hyperlipidemia, unspecified hyperlipidemia type Take 1 tablet (20 mg) by mouth Once per day. 90 tablet 3 025 2025 Active cholecalciferol (Vitamin D-3) 50 MCG (1999 UT) tabletIndications :Vitamin D deficiency Take 1 tablet (50 mcg) by mouth Once per day. 90 tablet 3 Active clonazePAM (KlonoPIN) 1 MG tabletIndications :Anxiety Take 1 tablet (1 mg) by mouth if needed each day for anxiety. Can take up to 5 pills weekly. 20 tablet 2 2024 Active QUEtiapine (SEROquel) 100 MG tabletIndications :Bipolar affective disorder, currently depressed, moderate (CMS/HCC) Take 1 tablet (100 mg) by mouth at bedtime. 90 tablet 025 2025 Active zolpidem (Ambien) 10 MG tabletIndications :Primary insomnia Take 1 tablet (10 mg) by mouth at bedtime. 28 tablet 2 025 2024 Active Brexpiprazole (Rexulti) 2 MG tabletIndications :Persistent depressive disorder Take 1 tablet (2 mg) by mouth Once per day. 30 tablet 2 2024 Active sertraline (Zoloft) 100 MG tabletIndications :Anxiety Take 2 tablets (200 mg) by mouth Once per day. 180 tablet Active Dulaglutide (Trulicity) 0.75 MG/0.5ML solution auto-injectorIndi cations:Type 2 diabetes mellitus without complication, without long-term current use of insulin (CMS/HCC) Inject 0.75 mg under the skin 1 (one) time per week. 2 mL 2 Active dicyclomine (Bentyl) 10 MG capsuleIndication s:Abdominal cramps Take 1 capsule (10 mg) by mouth 3 times daily. 270 capsule 025 2024 Active dicyclomine (Bentyl) 10 MG capsuleIndication s:Abdominal cramps Take 1 capsule (10 mg) by mouth 3 times daily. 360 capsule 024 2024 Discontinued(R eorder (will not trigger notification to Pharmacy)) Active Problems Problem Noted Date Diagnosed Date Chronic mid back pain 10/30/2024 Persistent depressive disorder 08/07/2024 Vitamin D deficiency 04/24/2024 parts counterman prescription benzodiazepine use 2022 Overview (06/13/2023): -Clonazepam [...] Encounters Date Type Department Care Team Description 12/28/2024 [facility] [address] [place] [address] [facility] Abdominal cramps 12/15/2024 Orders Only [facility] [address] [place] [address] [facility] 11/30/2024 4:00 PM EDT Office Visit [facility] OPTOMETRY [address] [place] [address] Elyse Olson, OD Glaucoma suspect of both eyes (Primary Dx) 11/26/2024 Telephone [facility] MEDICAL [address] [place] [address] [facility] stomach cramps, request new RX 11/02/2024 Orders Only [facility] [address] [place] [address] [facility] 10/30/2024 11:40 AM EDT Office Visit [facility] MEDICAL [address] [place] [address] [facility] Type 2 diabetes mellitus without complication, without long-term current use of insulin (CMS/HCC) (Primary Dx); Hyperlipidemia, unspecified hyperlipidemia type; Chronic mid back pain; Bipolar affective disorder, currently depressed, moderate (CMS/HCC); Primary insomnia; [facility] prescription benzodiazepine use; Health care maintenance 10/29/2024 Refill [facility] MEDICAL [address] [place] [address] [facility] Type 2 diabetes mellitus without complication, without long-term current use of insulin (CMS/HCC) 10/16/2024 11:20 AM EDT Office Visit [facility] MEDICAL [address] [place] [address] Emi Bartlett MD Anxiety; Bipolar affective disorder, currently depressed, moderate (CMS/HCC); Primary insomnia; Persistent depressive disorder from Last 3 Months Immunizations Immunization Administration Dates Next Due INFLUENZA INJECTABLE QUADRIV ALANT CCIIV4 MDCK Multi-dose vial 07/10/2019 Tdap 12/16/2015 Family History Medical History Relation Name Comments Diabetes Cousin Diabetes Maternal Grandmother Diabetes Mother's Sister Relation Name Status Comments Cousin Maternal Grandmother Mother's Sister Other Social History Tobacco Use Types Packs/Day Years Used Date Smoking Tobacco: Former Cigarettes 1 - 07/2022 Smokeless Tobacco: Current Tobacco Cessation:Ready [...] 95 10/16/2024 11:24 AM EDT Temperature 37.1 C (98.8 F) 10/30/2024 11:35 AM EDT Respiratory Rate 18 10/16/2024 11:24 AM EDT [...] Description 01/15/2025 11:20 AM EDT Office Visit [facility] MEDICAL [address] [place] [address] Emi Bartlett MD [address] [place] [address] 03/05/2025 12:00 PM EDT Office Visit [facility] MEDICAL [address] [place] [address] [place], [place], [facility] [address] [place] [address] 04/26/2025 11:00 AM EDT Office Visit [facility] OPTOMETRY [address] [place] [address] Elyse Olson, CONY [address] [place] [address] Health Maintenance Due Date Last Done Comments CT Colonography 1978 Colonoscopy 1978 Colorectal Cancer Screening 1978 FIT DNA/Cologuard 1978 FIT 1978 FOBT 1978 HIV Screening 1978 SDOH Screening 1978 Sigmoidoscopy 1978 Disability Screening 1978 Hepatitis C Screening 1996 Hepatitis B Vaccines (1 of 3 - 19+ 3-dose series) 1997 Pneumococcal Vaccine: Pediatrics (0 to 5 Years) and At-Risk Patients (6 to 49) Years (1 of 2 - PCV) 1997 COVID-19 Vaccine ( - season) 2024 12/22/2020, 12/01/2020 Depression Monitoring 07/12/2024 01/10/2024, 023 Influenza Vaccine (#1) 2025 07/10/2019 Diabetes: Urine Protein Screening 04/10/2025 04/10/2024, 02/08/2023 Lipid Panel 04/10/2025 04/10/2024, 02/08/2023 Diabetes: Hemoglobin A1C 05/02/2025 025, 07/31/2024, 04/10/2024, Additional history exists Alcohol/Substance Use Screening 10/30/2025 10/30/2024 Diabetes: Foot Exam 10/30/2025 10/30/2024, 10/30/2024, 10/30/2024, Additional history exists Family Planning (PISQ) 10/30/2025 10/30/2024 Tobacco Screening 11/30/2025 11/30/2024 DTaP/Tdap/Td Vaccines (2 - Td or Tdap) 12/15/2025 12/16/2015 Eye Exam 11/30/2026 11/30/2024, 06/0 08/2024, 11/30/2024, Additional history exists Zoster Vaccines [...] Procedure Name Priority Date/Time Associated Diagnosis Comments COMPREHENSIVE METABOLIC PANEL Routine 12/09/2024 12:44 PM EDT AMB REFERRAL TO GASTROENTEROLOGY Routine 12/09/2024 LLQ pain AUTOMATED VISUAL FIELD, EXTENDED - OU - BOTH EYES Routine 11/30/2024 Glaucoma suspect of both eyes OCT, OPTIC NERVE - OU - BOTH EYES Routine 11/30/2024 Glaucoma suspect of both eyes POCT GLYCOSYLATED HEMOGLOBIN (HGB A1C) Routine 10/30/2024 1:17 PM EDT Type 2 diabetes mellitus without complication, without long-term current use of insulin ([facility]) CANNABINOIDS, MS, UR RFX (NON ORDERABLE) Routine 10/30/2024 12:00 AM EDT TOXASSURE FLEX 15, URINE Routine 10/30/2024 12:00 AM EDT [facility] prescription benzodiazepine use ALBUMIN/CREATININE RATIO, TIMED URINE Routine 04/10/2024 Type 2 diabetes mellitus without complication, without long-term current use of insulin ([facility]) LIPID PANEL, STANDARD Routine 04/10/2024 Hyperlipidemia, unspecified hyperlipidemia type from Last 3 Months or Most Recently Relevant to Health Maintenance Results * Comprehensive Metabolic Panel (12/09/2024 12:44 PM EDT) Blood Venous blood specimen / Unknown [facility] LAB BLOOD ORDERABLES Karen l Result * Referral to Gastroenterology (12/09/2024) [facility] OUTPATIENT REFERRAL ORDER SIRENA Final Result * OCT, Optic Nerve - OU - [...] hemoglobin (Hgb A1c) (10/30/2024 1:17 PM EDT) [facility] Hemoglobin A1C 6.1(A) 4.0 - 6.0 % Blood Capillary blood specimen / Unknown 10/30/2024 1:17 PM EDT Result [facility] POINT OF CARE TEST ENTER/ EDIT ORDERABLES Final Result * Cannabinoids, MS, Ur RFX (10/30/2024 12:00 AM EDT) Pathologist [facility] CANNABINOIDS, Urine +POSITIVE + [facility] 1 Carboxy-THC, Urine 344 ng/mg creat [facility] 1 Comment: This test is not intended to distinguish between the metabolites of seckh-7-xngtxjenawaolcqfzuwe, the predominant form of THC in most herbal or marijuana-based products, and yxscv-9-ajxmvtizumwpjsacsnum, a psychoactive compound generally synthesized from other cannabinoids. 10/30/2024 10/30/2024 Comment:Urine, Random Releas e Narrative [facility] 1 - 11/03/2024 4:05 PM EDT Performed at: 01 - [employer] [employer] [address] [place] [address] [id number] Vending Machine Servicer: Jodi Palacio [facility], Phone: [phone] Specimen Comment: [facility], [facility] FLEX or MAT drug testing: Specimen Comment: -Technical component - Data analysis performed at Specimen Comment: [address] , [place] [address]. [facility] HISTORICAL/NON ORDERABLE LABS Final Result [facility] * [facility]?? Flex 15, Urine (10/30/2024 12:00 AM EDT) Summary Report FINAL [facility] 1 Comment: Cannabinoids, MS, Ur RFX [facility] Flex 15, Ur Test Result Flag Units Drug Present 7-aminoclonazepam 147 ng/mg creat 7-aminoclonazepam is an expected metabolite of clonazepam. Source of clonazepam is a scheduled prescription medication. Carboxy-THC 344 ng/mg creat Carboxy-THC is a metabolite of tetrahydrocannabinol (THC). Source of THC is most commonly herbal marijuana or marijuana-based products, but THC is also present in a scheduled prescription medication. Trace amounts of THC can be present in hemp and cannabidiol (CBD) products. This test is not intended to distinguish between ocidg-9-wmbsvcvjubqrejnnoetb, the predominant form of THC in most herbal or marijuana-based products, and fpphd-1-bpkiifrwtvtfybimskfo. Test Result Flag Units Ref Range Creatinine 43 mg/dL >=20 Declared Medications: Medication list was not provided. [...] metabolism of benzodiazepine class drugs: Parent Drug Detected Metabolites Diazepam: Desmethyldiazepam, Temazepam, Oxazepam Chlordiazepoxide: Desmethyldiazepam, Oxazepam Clorazepate: Desmethyldiazepam, Oxazepam Halazepam: Desmethyldiazepam, Oxazepam Temazepam: Oxazepam Oxazepam: None Alprazolam, Urine Not Detected ng/mg creat [...] 1 - 11/03/2024 4:05 PM EDT Test(s) 299664-[id number] IA was developed and its performance characteristics determined by [facility]. It has not been cleared or approved by the Food and Drug Administration. Performed at: 01 - [facility] [address] [place] [address] [id number] Vending Machine Servicer: Jodi Palacio [facility], Phone: [phone] Specimen Comment: [facility], [facility] FLEX or MAT drug testing: Specimen Comment: -Technical component - Data analysis performed at Specimen Comment: [address] [facility], [place] [address]. [facility] LAB URINE ORDERABLES Karen l Result Performing Organization Address City/[facility]/ZIP Co de Phone Number [facility] * Microalbumin / creatinine, urine ratio (04/10/2024) Urine (Urine, Random) [facility] LAB URINE ORDERABLES Karen l Result Performing Organization Address City/[facility]/ZIP Co de Phone Number EXTERNAL LAB * Lipid Panel, Standard (04/10/2024) Blood Venous blood specimen / Unknown [facility] LAB BLOOD ORDERABLES Karen l Result EXTERNAL LAB from Last 3 Months or Most Recently Relevant to Health Maintenance Insurance EYAD CANTRELL [place]AMES [id number] [facility] ONE CARE < 65 S[place] JAMES [id number] Care Teams Waistband Setter Relationship Specialty Start Date End Date [facility] [address] [place] [address] PCP - General Family Medicine 12/05/22 Wisam Vargas Community Health Worker Case Management 11/29/22 Gayle Delacruz Health Navigator 04/23/24
--- OUTSIDE RECORDS SUMMARY | 2025-01-06 15:04 | XMS_ITS | Patient Health Record ---
Author Organization [facility] Address [address] [place] [id number] Care Team Providers Care Executive Admin Name Role Phone Essie BRANNON, [place] Primary Care Provider Mirna vailable Farshad Weiner Unavailable [phone] Reason For Referral No Information Plan Of Treatment No Information Insurance Providers Payer Name Payer Address Payer Phone Subscriber Number Group Number Insured Name Patient Relationship to Insured Coverage Start Date Coverage End Date [facility] [address] [place] [phone] [id number] MIKE GOLDBERG Self - patient is the insured
[2025-01-12 19:04] LABS: Calprotectin, Fecal 9 mcg/g
== END 2025-01-04 14:32 | disposition home or self-care (01) ==
LOC: HO.LNP 14:31
PROVIDERS: Visit Provider Internal Medicine
DX: R10.32 Left lower quadrant pain (principal)
CPT/HCPCS: 83993

== ENCOUNTER 2025-03-26 11:09 | Day surgery (SDC) | payer OTHER, SELFPAY ==
--- NOTE | 2025-03-24 12:34 | HO.ANESPROP2 ---
Documented by User: Alaina Benson NP 03/24/25 12:37 HPI - Anesthesia Eval Consult details Narrative: 44 yr old male for colonoscopy Type 2 DM: pt reports manages DM by checking his BG, last took trulicity about a month ago Anesthesia Pre-Procedure Meds Is the patient on any of the following meds?: GLP1/DPP4 PMFSH Active Problems Active Problems: All Active Problems (Updated 12/09/24 @ 13:42 by Katty Conway MD) Elevated LFTs (Acute) Irritable bowel syndrome with diarrhea (Acute) LLQ pain (Acute) DKA (diabetic ketoacidosis) (Acute) Newly diagnosed diabetes (Acute) TYESHA (acute kidney injury) (Acute) Depression (Acute) Excessive tearing (Acute) Obesity (Acute) Sinusitis (Acute) Hyperlipidemia (Acute) Physical exam (Acute) Past Medical History Medical History Anxiety Depression IBS (irritable bowel syndrome) Marijuana use Smoker Diabetes Hyperlipidemia Family History Family History Father No problems noted. Mother No problems noted. Surgical History Surgical History History of tonsillectomy Social History Social History Household Members: Spouse and Children [facility] Do you presently have visiting nurse or other home services: No Alcohol intake: current Alcohol intake frequency: does not drink Patient Tobacco Use Status: Current everyday Tobacco user Tobacco use type: Cigarette Cigarette Packs Per Day: 1 Cigarettes Per Day: 20.0 e-Cigarette/Vaping Use: Former Use Second Hand Smoke Exposure: No Use of substances other than those prescribed or required for medical reasons: Yes Substance Use Type: Marijuana Substance Use Type Other:: vaped occasionally-ld 03/25 Are you DNR?: No Advance Directives: No Advance Directives Information Provided: Yes service: No Current occupational status: disabled Current occupational exposures/hazards: No Cognitive needs: No Hearing needs: No Vision needs: No Meds Allergies Allergy/AdvReac Type Severity Reaction Status Date / Time No Known Allergies Allergy Verified 03/26/25 11:37 Home Medications ?Medication ?Instructions ?Recorded ?Confirmed ?Last Taken ?Type albuterol sulfate 90 mcg/actuation 2 puff inhalation Q4H PRN 11/21/22 03/26/25 Unknown History aerosol inhaler Shortness Of Breath clonazepam 0.5 mg tablet 1 mg PO DAILY PRN Anxiety 12/09/24 03/26/25 Unknown History dicyclomine 10 mg capsule 10 mg PO BID 12/09/24 03/26/25 Unknown History metformin 500 mg tablet,extended 500 mg PO DAILY 12/09/24 03/26/25 Unknown History release 24 hr Documented by User: Elbert Michelle MD 03/26/25 13:18 PMFSH Past Medical History Medical History Anxiety Depression IBS (irritable bowel syndrome) Marijuana use Smoker Diabetes Hyperlipidemia Cognitive capacity: d Family History Family History Father No problems noted. Mother No problems noted. Family history of problems with anesthesia: No Surgical History Surgical History History of tonsillectomy History of Problems with Anesthesia: No Social History Social History Household Members: Spouse and Children [facility] Do you presently have visiting nurse or other home services: No Alcohol intake: current Alcohol intake frequency: does not drink Patient Tobacco Use Status: Current everyday Tobacco user Tobacco use type: Cigarette Cigarette Packs Per Day: 1 Cigarettes Per Day: 20.0 e-Cigarette/Vaping Use: Former Use Second Hand Smoke Exposure: No Use of substances other than those prescribed or required for medical reasons: Yes Substance Use Type: Marijuana Substance Use Type Other:: vaped occasionally- 03/25 Are you DNR?: No Advance Directives: No Advance Directives Information Provided: Yes service: No Current occupational status: disabled Current occupational exposures/hazards: No Cognitive needs: No Hearing needs: No Vision needs: No Narrative Narrative: normal Meds Allergies Allergy/AdvReac Type Severity Reaction Status Date / Time No Known Allergies Allergy Verified 03/26/25 11:37 Home Medications ?Medication ?Instructions ?Recorded ?Confirmed ?Last Taken ?Type albuterol sulfate 90 mcg/actuation 2 puff inhalation Q4H PRN 11/21/22 03/26/25 Unknown History aerosol inhaler Shortness Of Breath clonazepam 0.5 mg tablet 1 mg PO DAILY PRN Anxiety 12/09/24 03/26/25 Unknown History dicyclomine 10 mg capsule 10 mg PO BID 12/09/24 03/26/25 Unknown History metformin 500 mg tablet,extended 500 mg PO DAILY 12/09/24 03/26/25 Unknown History release 24 hr Exam Exam Date and Time: 03/06/25 Airway Mallampati Class: II TM Dist: >3cm Neck ROM: Full Denture: Upper Heart: rrr Lungs: cta Other: mormal Assessment and Plan Assessment Anesthesia Assessment: Anesthesia Plan Discussed, Smoking Cess. Discussed and Chart Reviewed Final Anesthetic Review Family History of Problems with Anesthesia: No History of Problems with Anesthesia: No NPO: Yes ASA Class: II Final Preanesthetic Review: No Changes in Pt Med Stat, Meds/Allgs Chart Reviewed, Consent Obtained/Reviewed and Anes Risks/Benef Reviewed Patient Risk: Low Procedure Risk: Low Anesthetic Plan Anesthetic Plan: MAC: and Other (mac) Disposition: Standard PACU
[2025-03-26 11:39] VITALS: BMI 30.1
[2025-03-26 11:49] VITALS: BP 123/83; PULSE 82; RESP 15; TEMP 36.5; O2SAT 96
[2025-03-26 11:52] LABS: Glucose, Whole Blood 110 mg/dL (60-115)
[2025-03-26] MEDS: Lactated Ringers 1,000 ML 100 ML IVCONT (11:55)
--- NOTE | 2025-03-26 12:43 | MHC.SHP ---
Pre-Procedural Eval Section A - 24 Hr Update-Section A only Date of Service: 03/26/25 Section B - Complete if H&P > 30 days Chief Complaint: abnormal findings of blood chemistry,IBS Details of Present Illness: Hyperlipidemia Surgical History History of tonsillectomy Present Medications: see Short Stay Collaborative assessment Allergies: Allergies Allergy/AdvReac Type Severity Reaction Status Date / Time No Known Allergies Allergy Verified 03/26/25 11:37 Review of Systems Review of Systems Comment: 10 point ROS negative Exam Exam Comment: Gen appear: No acute distress HEENT: no icterus Chest: No overt resp distress Abd: soft, nontender, nondistended Psych: Stable affect, answering questions appropriately Neuro: A/Ox3 noted to move all extremities spontaneously Ext: no peripheral edema Plan Diagnosis/Plan: Unchanged I have reviewed the history and physical and performed a pertinent physical examination on my patient. No changes have occurred unless specified. Time Spent With Patient Time: Total time managing care of this patient today ____ minutes.
[2025-03-26 13:50] VITALS: BP 113/75; PULSE 75; RESP 23; TEMP 37.1; O2SAT 96
--- NOTE | 2025-03-26 13:50 | P.OP_ITS ---
Operative Note Operative Note Date of Service: 03/26/25 Narrative: Procedure: Colonoscopy Indication: Change in bowel habits, hx of diverticulitis Endoscopist: Katty Conway MD Anesthesia Provider: Dr Michelle Anesthesia type: MAC Instrument: Olympus [id number]-H190L Consent: Indication, risks vs benefits, and alternatives were discussed with the patient who gave written informed consent to proceed. EKG, pulse, pulse oximetry and blood pressure were monitored throughout the procedure. Please see anesthesia flowsheet. Procedure: The patient was brought to the procedure room and placed in the left lateral decubitus position. IV medications were administered by the anesthesia provider in attendance. A digital rectal exam was performed which was normal. The colonoscope was then inserted through the anus and advanced through the colon to the cecum at 75 cm,and terminal ileum. Mucosa was carefully examined under high definition white light as the instrument was slowly withdrawn in a retrograde panoramic fashion. Retroflexion was performed in rectum. The procedure was not difficult. There were no immediate obvious complications. The quality of the prep was BBPS: 2+2+3 = adequate Withdrawal time 8 minutes. Limitations: No limitations. Findings: Mucosa: Localized edema, erythema and small amount of pus noted from one of the diverticulum in sigmoid colon, consistent with acute diverticulitis. Remaining mucosa normal to cecum and terminal ileum. Cold forceps biopsies were taken right and left-sided colon to rule out microscopic colitis. Protruding lesions: * Medium internal hemorrhoids without stigmata of recent bleeding. Excavated lesions: * Moderate diverticulosis of left sided colon. Impression: 1. Sigmoid diverticulitis 2. Diverticulosis 3. External and internal hemorrhoids Recommendations: - start Augmentin 875 TID x 7 days. - Follow path results. - Repeat colonoscopy for asymptomatic colorectal ca screening in 10 years.
[2025-03-26 14:05] VITALS: BP 119/81; PULSE 73; RESP 20; O2SAT 98
[2025-03-26 14:20] VITALS: BP 125/87; PULSE 73; RESP 20; TEMP 36.1; O2SAT 98
== END 2025-03-26 15:10 | disposition home or self-care (01) ==
PROVIDERS: PCP Nurse Practitioner; Visit Provider Internal Medicine
PROC: 0DJD8ZZ Inspection of Lower Intestinal Tract, Via Natural or Artificial Opening Endoscopic (ICD-10-PCS; CPT 45378; principal; 2025-03-26 12:30)
DX: R19.4 Change in bowel habit (principal); K57.32 Diverticulitis of large intestine without perforation or abscess without bleeding; K57.30 Diverticulosis of large intestine without perforation or abscess without bleeding; K64.8 Other hemorrhoids; K64.4 Residual hemorrhoidal skin tags; R79.89 Other specified abnormal findings of blood chemistry; K58.0 Irritable bowel syndrome with diarrhea; K76.0 Fatty (change of) liver, not elsewhere classified; E11.9 Type 2 diabetes mellitus without complications; E78.5 Hyperlipidemia, unspecified; G47.00 Insomnia, unspecified; F32.A Depression, unspecified; F41.9 Anxiety disorder, unspecified; Z79.84 Long term (current) use of oral hypoglycemic drugs; Z79.899 Other long term (current) drug therapy; F17.210 Nicotine dependence, cigarettes, uncomplicated; F12.90 Cannabis use, unspecified, uncomplicated
CPT/HCPCS: 45380; 82947; 88305; J2003; J2704; J3010

== ENCOUNTER → 2025-03-26 11:09 | Outpatient (BNV) | payer OTHER, SELFPAY | PROVIDERS: PCP Nurse Practitioner; Visit Provider Internal Medicine | DX: R19.4 Change in bowel habit (principal); K57.90 Diverticulosis of intestine, part unspecified, without perforation or abscess without bleeding; K64.8 Other hemorrhoids | CPT/HCPCS: 45380 ==